=== PATIENT | female | born 1935 | race Caucasian/White ===

== ENCOUNTER 2019-11-10 10:31 | Outpatient (CLI) | payer MEDICARE, SELFPAY ==
[2019-11-10 17:18] LABS: Blood Urea Nitrogen 18 mg/dL (7-17); Calcium 9.9 mg/dL (8.4-10.2); Carbon Dioxide 27 mmol/L (22-30); Chloride 104 mmol/L (98-107); Estimated Glomerular Filt Rate 39; Glucose 123 mg/dL (65-105); Potassium 4.2 mmol/L (3.4-5.0); Sodium 140 mmol/L (137-145)
== END 2019-11-10 10:32 | disposition home or self-care (01) ==
PROVIDERS: PCP Family Medicine; Visit Provider Family Medicine
DX: N18.3 Chronic kidney disease, stage 3 (moderate) (principal)
CPT/HCPCS: 36415; 80048

== ENCOUNTER 2022-05-05 01:14 | Inpatient (IN) | payer MEDICARE, SELFPAY ==
[2022-05-05] VITALS (26 sets, daily range): BP systolic 102–161; BP diastolic 60–98; PULSE 81–100; RESP 14–26; TEMP 36.3–36.6; O2SAT 86–99; BMI 38.4
--- NOTE | 2022-05-05 | ECHO_ITS ---
Patient Info Name: Cecy Cantu Age: 86 years : 1935 Gender: Female Ht: 65 in Wt: 230 lbs BSA: 2.24 m2 HR: 85 bpm BP: 116 / 66 mmHg Heart Rhythm: Sinus Rhythm Technical Quality: Fair Exam Date: 05/05/2022 12:56 PM Exam Location: [facility] Pulmonary Patient Status: Inpatient Admit Date: 05/05/2022 Staff Ordering Physician: Marcellus Lindo MD Film Editor: Flaca Manzo RDCS Attending Provider: Marcellus Lindo MD Exam Type: CA echo doppler color flow Study Info Indications - shortness of breath Complete two-dimensional, color flow and Doppler transthoracic echocardiogram is performed. Summary 1. Complete two-dimensional, color flow and Doppler transthoracic echocardiogram is performed. 2. Left ventricular hypertrophy with good systolic function. 3. Septal flattening consistent with right ventricular pressure overload. 4. Markedly dilated right ventricle with RV hypokinesis. 5. Estimated pulmonary artery pressure 56 mmHg. 6. Mildly sclerotic aortic valve which is not significantly stenotic. Left Ventricular Outflow Tract Name Value Normal LVOT 2D LVOT Diameter 2.0 cm LVOT Doppler LVOT Peak Gradient 1 mmHg LVOT Mean Gradient 1 mmHg LVOT VTI 10 cm LVOT VTI/AV VTI Ratio 0.5 LVOT Stroke Volume 32 ml LVOT CO 2.4 l/min LVOT CI 1.1 l/min/m2 Pulmonic Valve Name Value Normal RVOT Doppler RVOT Peak Gradient 0 mmHg PV Doppler PV Peak Gradient 1 mmHg Tricuspid Valve Name Value Normal TV Regurgitation Doppler TR Peak Velocity 342 cm/s TR Peak Gradient 35 mmHg Estimated PAP/RSVP RA Pressure 10 mmHg <=5 PA Systolic Pressure 57 mmHg <36 RV Systolic Pressure 57 mmHg <36 Aorta Name Value Normal Ascending Aorta Ao Root Diameter (MM) 3.6 cm Ao Root Diam Index (MM) 1.6 cm/m2 Aortic Valve
--- NOTE | ~2022-05-05 | CT_ITS ---
EXAMINATION: CT chest abdomen pelvis wo con DATE: 05/05/2022 15:19 INDICATION: Shortness of breath. Epigastric abdominal pain. TECHNIQUE: Computed tomography (CT) of the chest, abdomen, and pelvis was performed without intraveno us contrast. Automated exposure control and iterative reconstruction technique were employed. The dos e-length product was 1660.10 mGy-cm. COMPARISON: None FINDINGS: CHEST CT: The lungs demonstrate mild atelectasis. There is smooth septal thickening in the lungs, consistent wi th mild pulmonary edema. In the right lower lobe, there is a 14 mm nodule. In the left upper lobe, th ere is a 18 mm part solid nodule centered at the bronchopulmonary interstitium. No pleural effusion. Calcified right hilar and mediastinal lymph nodes are consistent with old granulomatous disease. Card iomegaly is noted. There are coronary artery calcifications. No pericardial effusion. The central pul monary arteries are enlarged, consistent with pulmonary arterial hypertension. There is a small slidi ng hiatal hernia. There is severe thoracic spondylosis. There is an old healed fracture of the sternu m. ABDOMEN/PELVIS CT: Calcifications in the liver consistent with old granulomatous disease. The gallbladder is absent. The spleen, pancreas, and adrenal glands are normal. There are cysts in the kidneys measuring up to 2.7 cm on the left. The prostate is mildly enlarged. A Muñoz catheter decompresses the bladder. There are no dilated loops of bowel. The appendix is not visualized. There are no pathologically enlarged lymp h nodes. There is no free intraperitoneal fluid. There is a right hip arthroplasty. There is severe l umbar spondylosis. IMPRESSION: 1. 14 mm nodule in right lung lower lobe suspicious for primary bronchogenic carcinoma. Noncontrast l ow-dose chest CT is recommended in 3 months. 2. 18 mm part solid nodule in left lung upper lobe suspicious for primary bronchogenic carcinoma. Non contrast low-dose chest CT is recommended in 3 months. 3. Mild pulmonary edema. 4. Small sliding hiatal hernia. Reviewed, dictated and finalized at location A. IMPRESSION: 1. 14 mm nodule in right lung lower lobe suspicious for primary bronchogenic ca rcinoma. Noncontrast low-dose chest CT is recommended in 3 months. 2. 18 mm part solid nodule in left lung upper lobe suspicious for primary bronc hogenic carcinoma. Noncontrast low-dose chest CT is recommended in 3 months. 3. Mild pulmonary edema. 4. Small sliding hiatal hernia.
--- NOTE | ~2022-05-05 | NM_ITS ---
EXAMINATION: NM pulmonary perfusion DATE: 05/05/2022 15:47 INDICATION: Shortness of breath. TECHNIQUE: 4.68 mCi Tc-99m MAA was administered intravenously for perfusion images. Scintigraphic im ages of the chest were obtained. COMPARISON: Chest CT 05/05/2022 FINDINGS: Perfusion images show large defects in the upper lobes and left lower lobe and moderate sized defects in the right lower lobe and right middle lobe. IMPRESSION: 1. Pulmonary embolism present (high probability). I called this result to Dr. Lindo. Reviewed, dictated and finalized at location A.
--- NOTE | ~2022-05-05 | XR_ITS ---
EXAMINATION: XR chest 1V portable DATE: 05/05/2022 02:03 INDICATION: Shortness of breath TECHNIQUE: frontal view of the chest was obtained. COMPARISON: Chest radiograph dated 08/19/2017 FINDINGS: Subtle opacities in the left mid and lower lung zones. No pleural effusion or pneumothorax. Borderlin e heart size. Enlargement of the central pulmonary arteries. Calcified right hilar lymph nodes consis tent with old granulomatous disease. IMPRESSION: 1. Opacities in the left mid and lower lung zone which could represent asymmetric mild pulmonary kandice a or pneumonia. 2. Borderline heart size with enlargement of the central pulmonary arteries consistent with pulmonary arterial hypertension. Reviewed, dictated and finalized at location A. IMPRESSION: 1. Opacities in the left mid and lower lung zone which could represent asymmetr ic mild pulmonary edema or pneumonia. 2. Borderline heart size with enlargement of the central pulmonary arteries con sistent with pulmonary arterial hypertension.
--- NOTE | ~2022-05-05 | US_ITS ---
EXAMINATION:US venous doppler LE BI INDICATION:Pulmonary embolism. TECHNIQUE: Multiple grayscale, color flow and Doppler images of the right and left lower extremity de ep venous systems were obtained and reviewed. COMPARISON:Perfusion scan dated 05/05/2022 FINDINGS: The left common femoral, superficial femoral and popliteal veins demonstrate normal respira tory variation, augmentation and compressibility. Color flow is also seen within the posterior tibia l, peroneal, greater saphenous and profunda veins. There is deep venous thrombosis of the right posterior tibial and peroneal veins. The remainder of th e right lower extremity veins demonstrate normal flow and compressibility. IMPRESSION: 1: Deep venous thrombosis of the right posterior tibial and peroneal veins. Reviewed, dictated and finalized at location B.
--- NOTE | 2022-05-05 01:15 | ECG_ITS ---
Measurements Intervals [place] Rate: 101 P: 14 MO: 178 QRS: -11 QRSD: 158 T: -28 QT: 365 QTc: 475 Interpretive Statements SINUS TACHYCARDIA RIGHT BUNDLE BRANCH BLOCK [120+ ms QRS DURATION, UPRIGHT V1, 40+ ms S IN I/aVL/V4/V5/V6] MINIMAL VOLTAGE CRITERIA FOR LVH, CONSIDER NORMAL VARIANT [MEETS CRITERIA IN ONE OF: R(aVL), S(V1), R(V5), R(V5/V6)+S(V1)] SEPTAL MYOCARDIAL INFARCTION , OF INDETERMINATE AGE [40+ ms Q WAVE IN V1/V2] CANNOT RULE OUT INFERIOR INFARCTION ABNORMAL ECG Electronically Signed On 05-06-2022 8:44:21 CDT by Guerrero Arriaza M.D.
--- NOTE | 2022-05-05 01:27 | ED.CHESTPAIN ---
HPI - Chest Pain General Chief Complaint: Chest Pain Stated Complaint: CP & SOB Time Seen by Provider: 05/05/22 01:16 History of Present Illness HPI narrative: 86-year-old female brought in by EMS from home. EMS was called out because she been having shortness of breath for over the last week or so got progressively worse. Patient cannot lie flat at this point secondary to being extremely short of breath and sleeping in a recliner. She is also been having swelling to her legs. She has some nonspecific epigastric type discomfort today which she described as a burning pressure type sensation. She states she has had ulcers in the past but not sure that this was causing this. EMS had the patient walk a short distance to get to their stretcher and in doing so she decompensated and was extremely dyspneic and O2 sat was about 88 to 89% at that time. Patient was placed on supplemental oxygen and O2 saturations were up in the mid 90s. Patient was given Nitropaste prior to arrival. Related Data Home Medications Medication Instructions Recorded Confirmed omeprazole 20 mg capsule,delayed 20 mg PO DAILY 11/05/21 11/05/21 release polyethylene glycol ea miscellaneous 05/05/22 Allergies Allergy/AdvReac Type Severity Reaction Status Date / Time morphine Allergy Unknown Unknown Verified 05/05/22 01:44 Penicillins Allergy Unknown UNKNOWN Verified 05/05/22 01:44 Sulfa (Sulfonamide Allergy Unknown Unknown Verified 05/05/22 01:44 Antibiotics) Review of Systems Review of Systems: CONSTITUTIONAL: Denies fever, chills, or sweats. EYES: Denies visual changes, redness, or discharge. ENT: Denies rhinorrhea, congestion, sore throat, or otalgia. CARDIOVASCULAR: Denies palpitations, or edema. Nonspecific epigastric/chest discomfort RESPIRATORY: Dyspnea with orthopnea. Dyspnea with minimal exertion GASTROINTESTINAL: Denies abdominal pain, nausea, vomiting, or diarrhea. GENITOURINARY: Denies dysuria or hematuria. SKIN: Denies rash or itching. MUSCULOSKELETAL: Denies back pain, joint pain, or myalgia. NEUROLOGIC: Denies headache, numbness, or weakness. PSYCHIATRIC: Denies anxiety or depression. [facility] Past Medical History Medical History (Updated 05/05/22 @ 02:33 by Raheem Hickey DO) Hypertension Family History Family History Mother Hypertension Sibling Breast cancer Other Family history of malignant neoplasm Social History Social History Smoking status: Never smoker Second hand tobacco smoke exposure: No Alcohol intake: never Exam Narrative: APPEARANCE: Patient is very dyspneic even with talking. She is obese. Head Normocephalic and atraumatic. EYES: PERRLA/EOMI, conjunctivae clear. NOSE: Normal with no drainage EARS:TMS clear with Vázquez, with good light reflex. THROAT: Pharynx clear, no exudate. NECK: Supple. No adenopathy, no masses. RESPIRATORY: Airway patent, respirations nonlabored. Rales noted in the lower half of both lung sharma CARDIOVASCULAR: Regular rate and rhythm without murmurs, rubs, or gallops. ABDOMINAL: Soft, nontender, nondistended, no hepatosplenomegaly Musculoskeletal: Moves all extremities. Strength/ROM intact, No calf tenderness. 2+ pitting edema both lower extremity NEURO: Alert. Cranial nerves II through XII intact. Normal gait. Good coordination. Nonfocal examination. SKIN:: Warm, dry. Normal Color PSYCHIATRIC: Normal affect/mood, normal interaction Course Vital Signs Vital signs: Vital Signs Temperature 97.8 F 05/05/22 01:10 Pulse Rate 95 05/05/22 01:10 Respiratory Rate 26 H 05/05/22 01:10 Blood Pressure 157/98 H 05/05/22 01:10 Pulse Oximetry 86 L 05/05/22 01:10 Oxygen Delivery Room Air 05/05/22 01:10 Temperature 97.8 F 05/05/22 01:10 Pulse Rate 91 05/05/22 02:15 Respiratory Rate 17 05/05/22 02:15 Blood Pressure 132/89 05/05/22 02:1
[2022-05-05 01:50] LABS: Basophils Percent Auto 0.5 % (0.2-1.2); Eosinophils Absolute Auto 0.1 K/mm3 (0-0.3); Eosinophils Percent Auto 1.6 % (0-4.4); Hematocrit 37.6 % (37.0-47.0); Hemoglobin 12.4 g/dL (12.0-15.0); Immature Granulocyte Absolute 0.03 K/mm3 (0.00-0.031); Immature Granulocyte Percent A 0.3 % (0-0.5); Lymphocytes Absolute Auto 2.85 K/mm3 (0.9-3.2); Lymphocytes Percent Auto 32.9 % (18.3-44.2); Mean Corpuscular Hemoglobin 30.5 pg (26-34); Mean Corpuscular Volume 92.6 fl (80-100); Mean Platelet Volume 9.9 fl (7.4-10.4); Monocytes Absolute Auto 0.7 K/mm3 (0.1-0.6); Monocytes Percent Auto 7.7 % (2.6-8.5); Neutrophils Absolute Auto 4.9 K/mm3 (1.3-6.7); Platelet Count Result 171 k/mm3 (150-375); Red Blood Count 4.06 M/mm3 (4.2-5.4); Red Cell Distribution Width 12.8 % (11.5-14.5); White Blood Count 8.7 K/mm3 (4.5-10.0)
[2022-05-05 02:02] LABS: Alanine Aminotransferase 13 U/L (6-35); Albumin Level 4.2 g/dL (3.5-5.1); Alkaline Phosphatase 74 U/L (38-126); Anion Gap 8 mmol/L (8-16); Aspartate Amino Transferase 25 U/L (14-36); Bilirubin,Total 0.8 mg/dL (0.2-1.3); Blood Urea Nitrogen 15 mg/dL (7-17); Calcium 10.8 mg/dL (8.4-10.2); Carbon Dioxide 27 mmol/L (22-30); Chloride 95 mmol/L (98-107); Estimated CRCL calculation 28 ml/min; Estimated Glomerular Filt Rate 31; Glucose 168 mg/dL (65-110); Potassium 3.6 mmol/L (3.4-5.0); Sodium 130 mmol/L (137-145)
[2022-05-05 02:16] LABS: NT Pro B Type Natriuretic Pept 5690 pg/mL (5-100); Troponin I 0.247 ng/mL (0.000-0.034)
--- NOTE | 2022-05-05 02:31 | PM.IMHP ---
H&P: HPI History of Present Illness Date/Time: 05/05/22 02:31 Chief Complaint: chest pain PMFSH Past Medical History Medical History (Updated 05/05/22 @ 02:33 by Raheem Hickey DO) Hypertension Family History Family History Mother Hypertension Sibling Breast cancer Other Family history of malignant neoplasm Social History Social History Smoking status: Never smoker Second hand tobacco smoke exposure: No Alcohol intake: former Substance use: former Spiritual care concerns: No Meds Home Medications and Allergies Home Medications Medication Instructions Recorded Confirmed Type hydrochlorothiazide 25 mg tablet 25 mg PO DAILY #90 tabs 05/01/21 05/05/22 Rx lisinopril 20 mg tablet 20 mg PO DAILY #90 tabs 05/01/21 05/05/22 Rx simvastatin 20 mg tablet 20 mg PO DAILY #90 tabs 05/01/21 05/05/22 Rx calcitriol 0.5 mcg capsule 0.5 mcg PO DAILY #90 caps 11/05/21 05/05/22 Rx omeprazole 20 mg capsule,delayed 20 mg PO DAILY 11/05/21 05/05/22 History release ergocalciferol (vitamin D2) 1,250 1,250 mcg PO WEEKLY 05/05/22 05/05/22 History mcg (50,000 unit) capsule Allergies Allergy/AdvReac Type Severity Reaction Status Date / Time morphine Allergy Unknown Unknown Verified 05/05/22 01:44 Penicillins Allergy Unknown UNKNOWN Verified 05/05/22 01:44 Sulfa (Sulfonamide Allergy Unknown Unknown Verified 05/05/22 01:44 Antibiotics) Vital Signs Vital Signs - 24 hr 05/05/22 01:10 05/05/22 01:26 05/05/22 01:30 Temperature 97.8 F Pulse Rate 95 Respiratory Rate 26 H Blood Pressure 157/98 H Pulse Oximetry 86 L 93 93 Oxygen Delivery Room Air Nasal Cannula Nasal Cannula Oxygen Flow Rate 2 2 05/05/22 01:28 05/05/22 01:21 05/05/22 01:30 Temperature Pulse Rate 87 95 90 Respiratory Rate 17 17 Blood Pressure Pulse Oximetry 94 93 Oxygen Delivery Oxygen Flow Rate 05/05/22 01:45 05/05/22 02:04 05/05/22 02:15 Temperature Pulse Rate 92 92 91 Respiratory Rate 20 19 17 Blood Pressure 132/89 Pulse Oximetry 95 95 94 Oxygen Delivery Oxygen Flow Rate H&P: Results Labs Labs: Short CBC 05/05/22 Range/Units 01:45 WBC 8.7 (4.5-10.0) K/mm3 Hgb 12.4 (12.0-15.0) g/dL Hct 37.6 (37.0-47.0) % Plt Count 171 (150-375) k/mm3 BMP 05/05/22 01:45 Sodium 130 L Potassium 3.6 Chloride 95 L Carbon Dioxide 27 BUN 15 Creatinine 1.60 H Glucose 168 H Calcium 10.8 H Cardiac Enzymes 05/05/22 Range/Units 01:45 Troponin I 0.247 H* (0.000-0.034) ng/mL Liver Function 05/05/22 Range/Units 01:45 Total Bilirubin 0.8 (0.2-1.3) mg/dL AST 25 (14-36) U/L ALT 13 (6-35) U/L Alkaline Phosphatase 74 (38-126) U/L Albumin 4.2 (3.5-5.1) g/dL Assessment and Plan Assessment and plan (1) Congestive heart failure: Code(s): I50.9 - Heart failure, unspecified Status: Acute Assessment and Plan: admit to IMU gentle diuresis daily intake and output echocardiogram in a.m. (2) Non-ST elevated myocardial infarction (non-STEMI): Code(s): I21.4 - Non-ST elevation (NSTEMI) myocardial infarction Status: Acute Assessment and Plan: patient with elevated troponins currently on heparin drip cardiology consult (3) Hypoxia: Code(s): R09.02 - Hypoxemia Status: Acute Assessment and Plan: supplemental oxygen by nasal cannula continue to monitor (4) Chronic renal failure, stage 3 (moderate): Onset Date: ~08/2016 Code(s): N18.3 - Chronic kidney disease, stage 3 (moderate) Status: Acute Assessment and Plan: continue to monitor BUN and creatinine daily intake and output
[2022-05-05] MEDS: FUROSEMIDE INJ 40 MG/4 ML VIAL IV PUSH (02:37)
[2022-05-05 02:41] LABS: INR 1.1; Prothrombin Time 13.5 Seconds (11.1-14.7)
[2022-05-05 02:43] LABS: Partial Thromboplastin Time 30.1 SECONDS (22.3-36.8)
[2022-05-05] MEDS: HEPARIN SODIUM 5,000 UNITS/ML VIAL 4000 UNITS IV PUSH ×2 (02:44→08:59)
[2022-05-05] MEDS: HEPARIN SOD/D5W 100 UNITS/ML 25,000 UNITS/250 ML BAG 9 UNITS IV CONT (02:45)
[2022-05-05 03:21] LABS: SARS-CoV-2 RNA PCR Negative
--- NOTE | 2022-05-05 04:10 | ADMGEN ---
This patient, Cecy Cantu, was admitted to IMU Room 206-02. Patient/family oriented to hospital policies and general routines including ID bracelet, bed and alarms, visiting hours, pain management, procedures, bathroom and other care routines, personal items, smoking policy, room service/diet, and visiting hours. Information on how to activate the Rapid Response Team has been discussed. Patient/Family are encouraged to report perceived risks to care and to ask questions if they do not understand what they are told or what they should do.
[2022-05-05 08:13] LABS: Troponin I 0.242 ng/mL (0.000-0.034)
[2022-05-05] MEDS: hydroCHLOROthiazide 25 MG TABLET PO (08:44)
[2022-05-05] MEDS: PANTOPRAZOLE 40 MG TABLET PO (08:44)
[2022-05-05] MEDS: lisinopriL 20 MG TABLET PO (08:44)
[2022-05-05] MEDS: calcitrioL 0.25 MCG CAPSULE 0.5 MCG PO (08:44)
[2022-05-05] MEDS: SIMVASTATIN 20 MG TABLET PO (08:45)
[2022-05-05 08:52] LABS: Partial Thromboplastin Time 27.3 SECONDS (22.3-36.8)
--- NOTE | 2022-05-05 11:21 | PM.IMPN ---
Progress Note: A&P Assessment and Plan (1) Congestive heart failure: Code(s): I50.9 - Heart failure, unspecified Status: Acute (2) Non-ST elevated myocardial infarction (non-STEMI): Code(s): I21.4 - Non-ST elevation (NSTEMI) myocardial infarction Status: Acute (3) Hypoxia: Code(s): R09.02 - Hypoxemia Status: Acute (4) Chronic renal failure, stage 3 (moderate): Onset Date: ~08/2016 Code(s): N18.3 - Chronic kidney disease, stage 3 (moderate) Status: Acute Plan # shortness of breath COVID negative unclear etiology. Reviewed with IV diuresis for suspected congestive heart failure. Will get a V/Q scan due to renal dysfunction to rule out PE. Her main chief complaint is epigastric pain. Will get CT evaluate this. Chest x-ray shows subtle opacities in the left mid and lower lung zone with no effusion or pneumothorax. Enlargement of the central pulmonary arteries consistent with pulmonary arterial hypertension with borderline heart size echo to evaluate these however these sounds to be a chronic he might not be the etiology for her shortness of breath which sshe relates to stay be started few weeks back. Will cover with antibiotics for possible pneumonia at this time. AgoWBC count is normal and reports no history off fever chills has minimal cough. # acute hypoxic respiratory failure hypoxic upon exertion. Currently on 2 L oxygen. # acute congestive heart failure echo ordered, cardiology consult BNP is elevated at 5690. IV Lasix once daily for now # non ST-elevation ME troponin of 0.247 for except flat at 0.242. Could be related to CHF. On heparin drip for non ST-elevation ME. BNP elevated at 5 690 # hypertension home medications # hyperlipidemia home medication # hyponatremia mild continue to monitor # CKD stage 3 baseline creatinine 1.3-1.5 currently at 1.6 continue to monitor with diuresis # prediabetes A1c of 6.1 # DVT prophylaxis on heparin drip #code status full code Subjective Date/time seen: 05/05/22 11:21 Interval history: HPI:86-year-old female brought in by EMS from home.? EMS was called out because she been having shortness of breath for over the last week or so got progressively worse.? Patient cannot lie flat at this point secondary to being extremely short of breath and sleeping in a recliner.? She is also been having swelling to her legs.? She has some nonspecific epigastric type discomfort today which she described as a burning pressure type sensation.? She states she has had ulcers in the past but not sure that this was causing this.? EMS had the patient walk a short distance to get to their stretcher and in doing so she decompensated and was extremely dyspneic and O2 sat was about 88 to 89% at that time.? Patient was placed on supplemental oxygen and O2 saturations were up in the mid 90s.? Patient was given Nitropaste prior to arrival 05/05/2022 reports epigastric pain. Feels about the same. Denies any nausea vomiting. Has shortness of breath since last few weeks. Reports hurts when she takes deep breath. Review of Systems Review of Systems: All systems reviewed & are unremarkable except as noted in HPI and below Exam Narrative: GENERAL: The patient is well developed, ill looking, not in acute distress HEENT: Nonicteric sclerae, PERRLA, EOMI. Oropharynx clear. Moist mucous membranes. Conjunctivae appear well perfused. CHEST: Chest wall is nontender. HEART: Regular rate and rhythm without murmur, rubs, or gallops LUNGS: Diminished breath sounds to auscultation bilaterally. no respiratory distress ABDOMEN: Soft, positive bowel sounds, tender epigastric area, no organomegaly. SKIN: No rash, no excessive bruising, petechiae, or purpura. NEUROLOGIC: Cranial nerves II-XII intact, alert and oriented x 3, no gross motor deficits EXTREMITIES: no edema, cyanosis or clubbing Objective Data Vital Signs Vital Signs: Vital Signs - 24 hr 05/05/22
[2022-05-05 12:48] LABS: Lipase 155 U/L (23-300)
--- NOTE | 2022-05-05 15:00 | PC.NURSE ---
Patient off floor to CT and nuclear medicine for testing. All vitals stable. Patient okay to travel without RN per Dr. Lindo.
[2022-05-05 16:48] LABS: Basophils Absolute Auto 0.1 K/mm3 (0.0-0.1); Basophils Percent Auto 0.7 % (0.2-1.2); Eosinophils Absolute Auto 0.3 K/mm3 (0-0.3); Eosinophils Percent Auto 2.7 % (0-4.4); Hematocrit 37.5 % (37.0-47.0); Hemoglobin 12.3 g/dL (12.0-15.0); Immature Granulocyte Absolute 0.04 K/mm3 (0.00-0.031); Immature Granulocyte Percent A 0.4 % (0-0.5); Lymphocytes Absolute Auto 4.19 K/mm3 (0.9-3.2); Lymphocytes Percent Auto 38.3 % (18.3-44.2); Mean Corpuscular HGB Conc 32.8 g/dl (32-36); Mean Corpuscular Hemoglobin 30.5 pg (26-34); Mean Corpuscular Volume 93.1 fl (80-100); Mean Platelet Volume 10.1 fl (7.4-10.4); Monocytes Absolute Auto 0.9 K/mm3 (0.1-0.6); Monocytes Percent Auto 8.5 % (2.6-8.5); Neutrophils Absolute Auto 5.4 K/mm3 (1.3-6.7); Neutrophils Percent Auto 49.4 % (45.5-73.1); Platelet Count Result 176 k/mm3 (150-375); Red Blood Count 4.03 M/mm3 (4.2-5.4); White Blood Count 10.9 K/mm3 (4.5-10.0)
[2022-05-05 17:54] LABS: Partial Thromboplastin Time > 200.0 SECONDS (22.3-36.8)
[2022-05-05 18:01] LABS: INR 1.2; Prothrombin Time 14.4 Seconds (11.1-14.7)
[2022-05-05] MEDS: MELATONIN 5 MG TABLET PO (20:36)
[2022-05-05] MEDS: HEPARIN SOD/D5W 100 UNITS/ML 25,000 UNITS/250 ML BAG 12 UNITS IV CONT (20:36)
[2022-05-05] MEDS: oxyCODONE/ACETAMINOPHEN (*CRX) 5-325 MG TABLET 1 TABLET PO (20:36)
[2022-05-06] VITALS (15 sets, daily range): BP systolic 105–124; BP diastolic 56–94; PULSE 71–94; RESP 16–22; TEMP 36.3–36.7; O2SAT 92–98
[2022-05-06] MEDS: HEPARIN SOD/D5W 100 UNITS/ML 25,000 UNITS/250 ML BAG 12 UNITS IV CONT (01:08)
[2022-05-06 01:14] LABS: Partial Thromboplastin Time > 200.0 SECONDS (22.3-36.8)
[2022-05-06] MEDS: HEPARIN SOD/D5W 100 UNITS/ML 25,000 UNITS/250 ML BAG 10 UNITS IV CONT (02:16)
[2022-05-06 07:02] LABS: Basophils Absolute Auto 0.1 K/mm3 (0.0-0.1); Basophils Percent Auto 0.9 % (0.2-1.2); Eosinophils Absolute Auto 0.3 K/mm3 (0-0.3); Eosinophils Percent Auto 3.3 % (0-4.4); Hematocrit 34.7 % (37.0-47.0); Hemoglobin 11.3 g/dL (12.0-15.0); Immature Granulocyte Absolute 0.04 K/mm3 (0.00-0.031); Immature Granulocyte Percent A 0.4 % (0-0.5); Lymphocytes Absolute Auto 4.35 K/mm3 (0.9-3.2); Lymphocytes Percent Auto 43.1 % (18.3-44.2); Mean Corpuscular HGB Conc 32.6 g/dl (32-36); Mean Corpuscular Hemoglobin 30.9 pg (26-34); Mean Corpuscular Volume 94.8 fl (80-100); Mean Platelet Volume 10.2 fl (7.4-10.4); Monocytes Percent Auto 9.9 % (2.6-8.5); Neutrophils Absolute Auto 4.3 K/mm3 (1.3-6.7); Neutrophils Percent Auto 42.4 % (45.5-73.1); Platelet Count Result 171 k/mm3 (150-375); Red Blood Count 3.66 M/mm3 (4.2-5.4); White Blood Count 10.1 K/mm3 (4.5-10.0)
--- NOTE | 2022-05-06 07:20 | PM.CNPUL ---
Assessment and Plan Assessment and plan (1) Pulmonary embolism: Code(s): I26.99 - Other pulmonary embolism without acute cor pulmonale Status: Acute Assessment and Plan: Patient with 7 days of worsening shortness of breath, hemodynamics stability, hypoxemia, high probability perfusion scan, BNP of 5690, troponin is 0.247 and an echocardiogram that shows LV septal flattening, dilated RV with RV hypokinesis and an estimated pulmonary arterial systolic pressure 56. patient has been treated with IV heparin drip for 30 hours and states that clinically she is better and now breathing normal at rest, pleuritic chest pain has resolved and substernal chest pain has resolved. She remains hemodynamically stable and on 2 L nasal cannula. Her renal insufficiency prevents a CT angiogram at this time. LE dopplers pending. Worsening creatinine and Lasix has been held. At this time I will consider this an unprovoked PE. Of note the patient has been relatively immobile only walking to the bathroom for the last 2 weeks and she also has to pulmonary nodules which may be cancer. Risk assessment of early . Patient remains hemodynamically stable and has RV dysfunction and elevated BNP and troponin placing her at intermediate-high risk and she has a full PESI score of 30 (class 1, low risk) and a sPESI score of 2 (high risk). Using Chest guidelines (from 2020) statements 8 and 9, I agree with IV heparin anticoagulation while monitoring for any deterioration. Discussed with Dr. Lindo. Will follow with you. (2) Lung nodule, multiple: Code(s): R91.8 - Other nonspecific abnormal finding of lung field Status: Acute Plan Patient is a never smoker With minimal exposure to secondhand smoke. Patient was found to have a 14 mm right lower lobe nodule and an 18 mm left upper lobe partly solid nodule. Recommend repeat CT scan in 3 months. History of Present Illness History of Present Illness Consult date: 05/06/22 Chief complaint: SOB Narrative: 2021: This is a new pulmonary consult for pulmonary embolism and lung nodules. 86-year-old with a history of diabetes, hypertension, CKD, bilateral lower extremity DVTs in the late , hematemesis from a bleeding ulcer in the mid . History obtained from patient and patient's daughter. Regarding her DVTs in the late she remembers making a bank deposit and she almost fell. She was admitted to the hospital for approximately 5-7 days with bilateral leg swelling and she remembers that they wrapped her legs but does not remember if they gave her any medicines. She was told she had blood clots in both legs. She has had no history of clots since then. she has no Spe[place] family history of blood clots. She has no history of strokes. Regarding her bleeding ulcer in the mid patient remembers vomiting coffee-grounds and was admitted to the hospital for 19 days. She does not remember having any procedures performed and did remember being placed on a strict diet. She has had no history of bleeding since then. Patient is a never smoker. She was exposed to secondhand smoke from her father and from her from [id number]. 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 She denies vaping, illicit drug use, sandblasting, welding, asbestos were, professional painting or steel cut off [employer]. 1 year ago the patient said that she noticed leg fatigue and stopped going to [employer] at that time. She stated at that time she could walk 1/2 a block and would stop because her legs were tired. She could do 13 steps and would stop because her legs were tired. Six months ago the patient states that she could only do 6 steps and then her legs were tired. 1-2 months ago the patient noticed shortness of breath with activity and no rest shortness of breath around. Patient would get winded walking around the house. She denied any chest pain at that time. Fourteen days prior to admission the patient d
[2022-05-06 07:22] LABS: Alanine Aminotransferase 12 U/L (6-35); Albumin Level 3.6 g/dL (3.5-5.1); Alkaline Phosphatase 70 U/L (38-126); Anion Gap 10 mmol/L (8-16); Aspartate Amino Transferase 22 U/L (14-36); Bilirubin,Total 0.6 mg/dL (0.2-1.3); Blood Urea Nitrogen 21 mg/dL (7-17); Carbon Dioxide 27 mmol/L (22-30); Chloride 92 mmol/L (98-107); Estimated CRCL calculation 21 ml/min; Estimated Glomerular Filt Rate 22; Glucose 131 mg/dL (65-110); Magnesium 1.2 mg/dL (1.6-2.3); Potassium 3.4 mmol/L (3.4-5.0); Sodium 129 mmol/L (137-145)
[2022-05-06 08:25] LABS: Partial Thromboplastin Time 114.7 SECONDS (22.3-36.8)
[2022-05-06] MEDS: calcitrioL 0.25 MCG CAPSULE 0.5 MCG PO (09:47)
[2022-05-06] MEDS: SIMVASTATIN 20 MG TABLET PO (09:47)
[2022-05-06] MEDS: PANTOPRAZOLE 40 MG TABLET PO (09:47)
--- NOTE | 2022-05-06 09:57 | PCOTNOTE ---
Per MD Dr. Lindo, patient is cleared to perform OT evaluation at this time.
[2022-05-06] MEDS: MAGNESIUM SULF 2 GM/WATER 50ML 2 GM/50 ML BAG IVPB (10:00)
--- NOTE | 2022-05-06 12:05 | PCPTNOTE ---
Attempted PT evaluation this date however pt declined due to being fatigued. Will attempt at a later date/time.
[2022-05-06] MEDS: DOCUSATE SODIUM 100 MG CAPSULE PO (15:46)
--- NOTE | 2022-05-06 16:17 | PM.IMPN ---
Progress Note: A&P Assessment and Plan (1) Congestive heart failure: Code(s): I50.9 - Heart failure, unspecified Status: Acute (2) Non-ST elevated myocardial infarction (non-STEMI): Code(s): I21.4 - Non-ST elevation (NSTEMI) myocardial infarction Status: Acute (3) Hypoxia: Code(s): R09.02 - Hypoxemia Status: Acute (4) Chronic renal failure, stage 3 (moderate): Onset Date: ~08/2016 Code(s): N18.3 - Chronic kidney disease, stage 3 (moderate) Status: Acute Plan # shortness of breath COVID negative unclear etiology. started with IV diuresis for suspected congestive heart failure. PK scan obtained which showed high probability for PE. CT chest reveal right lower lobe and left lower lobe nodule suspicious for bronchogenic carcinoma. Chest x-ray shows subtle opacities in the left mid and lower lung zone with no effusion or pneumothorax. Enlargement of the central pulmonary arteries consistent with pulmonary arterial hypertension with borderline heart size . Echo with RV dysfunction Consistent with PE. Started on heparin PE protocol. Sees on ceftriaxone and azithromycin possible pneumonia which will be continued. WBC count is normal and reports no history off fever chills has minimal cough. Venous duplex lower extremity came back positive for DVT as well She will need anticoagulation discussed with care coordination for Xarelto versus Eliquis. She has high deductible which to be met after month. She will be given a month supply for Eliquis/Xarelto . PE is unprovoked however does have decreased mobility since a while now. Underlying malignancy needs to be ruled out as well. Discussed biopsy of the lung nodules however short-term follow-up in [address] chest history for due to acute PE And need for anticoagulation at this time. # acute hypoxic respiratory failure hypoxic upon exertion. Currently on 2 L oxygen. stable oxygen needs # acute congestive heart failure echo ordered, cardiology consult BNP is elevated at 5690. IV Lasix given however will hold due to worsening renal failure # non ST-elevation NM troponin of 0.247 for except flat at 0.242. Could be related to CHF. On heparin drip for non ST-elevation NM. BNP elevated at 5 690 this is likely related to underlying PE # hypertension home medications # hyperlipidemia home medication # hyponatremia mild continue to monitor # acute on CKD stage 3 baseline creatinine 1.3-1.5 currently at 1.6 creatinine worsened to 2 today. Will hold lisinopril hydrochlorothiazide and IV diuresis # prediabetes A1c of 6.1 # DVT prophylaxis on heparin drip #code status full code discussed with pulmonary Subjective Date/time seen: 05/06/22 16:17 Interval history: HPI:86-year-old female brought in by EMS from home.? EMS was called out because she been having shortness of breath for over the last week or so got progressively worse.? Patient cannot lie flat at this point secondary to being extremely short of breath and sleeping in a recliner.? She is also been having swelling to her legs.? She has some nonspecific epigastric type discomfort today which she described as a burning pressure type sensation.? She states she has had ulcers in the past but not sure that this was causing this.? EMS had the patient walk a short distance to get to their stretcher and in doing so she decompensated and was extremely dyspneic and O2 sat was about 88 to 89% at that time.? Patient was placed on supplemental oxygen and O2 saturations were up in the mid 90s.? Patient was given Nitropaste prior to arrival 05/05/2022 reports epigastric pain. Feels about the same. Denies any nausea vomiting. Has shortness of breath since last few weeks. Reports hurts when she takes deep breath. 05/06/2022 feeling a little better. Been on heparin drip. Shortness of breath on exertion. Epigastric pain is improved. No other complaints discussed with pulmona
[2022-05-06 16:26] LABS: Partial Thromboplastin Time 63.2 SECONDS (22.3-36.8)
[2022-05-06] MEDS: HEPARIN SODIUM 5,000 UNITS/ML VIAL 3000 UNITS IV PUSH (16:35)
[2022-05-06 17:53] LABS: Anion Gap 9 mmol/L (8-16); Blood Urea Nitrogen 22 mg/dL (7-17); Calcium 9.8 mg/dL (8.4-10.2); Carbon Dioxide 27 mmol/L (22-30); Chloride 92 mmol/L (98-107); Estimated CRCL calculation 20 ml/min; Estimated Glomerular Filt Rate 20; Glucose 136 mg/dL (65-110); Potassium 3.3 mmol/L (3.4-5.0); Sodium 128 mmol/L (137-145)
[2022-05-06] MEDS: POTASSIUM CHLORIDE 20 MEQ TABLET PO (18:35)
[2022-05-06] MEDS: SODIUM CHLORIDE 0.9% IV 500 ML 100 ML IV CONT (18:35)
[2022-05-07] VITALS (16 sets, daily range): BP systolic 102–157; BP diastolic 46–77; PULSE 69–92; RESP 16–22; TEMP 36.2–36.6; O2SAT 90–97
[2022-05-07 00:04] LABS: Partial Thromboplastin Time 131.2 SECONDS (22.3-36.8)
[2022-05-07] MEDS: HEPARIN SOD/D5W 100 UNITS/ML 25,000 UNITS/250 ML BAG 8 UNITS IV CONT (06:11)
[2022-05-07 07:16] LABS: Basophils Absolute Auto 0.1 K/mm3 (0.0-0.1); Basophils Percent Auto 0.7 % (0.2-1.2); Eosinophils Absolute Auto 0.3 K/mm3 (0-0.3); Eosinophils Percent Auto 3.8 % (0-4.4); Hematocrit 33.4 % (37.0-47.0); Hemoglobin 11.2 g/dL (12.0-15.0); Immature Granulocyte Absolute 0.03 K/mm3 (0.00-0.031); Immature Granulocyte Percent A 0.4 % (0-0.5); Lymphocytes Absolute Auto 2.95 K/mm3 (0.9-3.2); Lymphocytes Percent Auto 35.1 % (18.3-44.2); Mean Corpuscular HGB Conc 33.5 g/dl (32-36); Mean Corpuscular Volume 92.5 fl (80-100); Mean Platelet Volume 10.2 fl (7.4-10.4); Monocytes Absolute Auto 0.8 K/mm3 (0.1-0.6); Monocytes Percent Auto 9.5 % (2.6-8.5); Neutrophils Absolute Auto 4.2 K/mm3 (1.3-6.7); Neutrophils Percent Auto 50.5 % (45.5-73.1); Platelet Count Result 162 k/mm3 (150-375); Red Blood Count 3.61 M/mm3 (4.2-5.4); Red Cell Distribution Width 12.8 % (11.5-14.5); White Blood Count 8.4 K/mm3 (4.5-10.0)
[2022-05-07 07:36] LABS: Partial Thromboplastin Time 71.3 SECONDS (22.3-36.8)
[2022-05-07 07:38] LABS: Alanine Aminotransferase 11 U/L (6-35); Albumin Level 3.4 g/dL (3.5-5.1); Alkaline Phosphatase 71 U/L (38-126); Anion Gap 9 mmol/L (8-16); Aspartate Amino Transferase 19 U/L (14-36); Bilirubin,Total 0.6 mg/dL (0.2-1.3); Blood Urea Nitrogen 19 mg/dL (7-17); Calcium 9.8 mg/dL (8.4-10.2); Carbon Dioxide 27 mmol/L (22-30); Chloride 94 mmol/L (98-107); Estimated CRCL calculation 22 ml/min; Estimated Glomerular Filt Rate 24; Glucose 134 mg/dL (65-110); Magnesium 1.7 mg/dL (1.6-2.3); Potassium 3.6 mmol/L (3.4-5.0); Sodium 130 mmol/L (137-145)
[2022-05-07 07:54] LABS: NT Pro B Type Natriuretic Pept 3260 pg/mL (5-100)
--- NOTE | 2022-05-07 08:13 | PM.IMPN ---
Progress Note: A&P Assessment and Plan (1) Pulmonary embolism: Code(s): I26.99 - Other pulmonary embolism without acute cor pulmonale Status: Acute Assessment and Plan: Heparin drip, being transitioned to eliquis (2) Congestive heart failure: Code(s): I50.9 - Heart failure, unspecified Status: Acute Assessment and Plan: Right heart strain noted on echo 2/2 PE, euvolemia at this time (3) Hypoxia: Code(s): R09.02 - Hypoxemia Status: Acute Assessment and Plan: Improving, now on 2L, appreciate pulm consult, 2/2 PE, home O2 eval pending, anticipate d/c on oxygen and eliquis tomorrow (4) Chronic renal failure, stage 3 (moderate): Onset Date: ~08/2016 Code(s): N18.3 - Chronic kidney disease, stage 3 (moderate) Status: Acute Assessment and Plan: Stable, continue to monitor (5) Lung nodule, multiple: Code(s): R91.8 - Other nonspecific abnormal finding of lung field Status: Acute Assessment and Plan: Nodule suspicious for bronchogenic carcinoma as well as unprovoked PE, concerning for underlying malignancy, recommend repeat CT chest in 3 months as opposed to lung biopsy due to acute PE and need for anticoagulation D/c heparin drip, start eliquis (6) Hyponatremia: Code(s): E87.1 - Hypo-osmolality and hyponatremia Status: Acute Assessment and Plan: Improving, likely secondary to hypervolemia Plan DVT prophylaxis on heparin drip, transitioning to eliquis Code status full code Subjective Date/time seen: 05/07/22 08:13 Interval history: 05/07: Resting comfortably on 2 L nasal cannula. No overnight events noted. No chest pain or shortness of breath. No nausea, vomiting or diarrhea. No fevers or chills. Review of Systems Review of Systems: 12 point review of systems was assessed and was negative except as noted in the HPI Exam Narrative: General: No acute distress, alert and oriented per baseline HEENT: Atraumatic, normocephalic, mucous membranes moist CV: Regular rate and rhythm, S1, S2 Lungs: Clear to auscultation bilaterally, no rales or crackles noted, no wheezes, good air entry Abdomen: Soft, nontender, nondistended Extremities: Normal to inspection Skin: No rashes noted, no lesions or wounds seen Psych: Euthymic, normal affect Objective Data Vital Signs Vital Signs: Vital Signs - 24 hr 05/06/22 09:58 05/06/22 09:45 05/06/22 10:00 Temperature Pulse Rate 76 94 Respiratory Rate 16 Blood Pressure Pulse Oximetry 96 Oxygen Delivery Nasal Cannula Nasal Cannula Oxygen Flow Rate 2 2 05/06/22 12:00 05/06/22 12:00 05/06/22 12:00 Temperature 98.1 F Pulse Rate 94 82 76 Respiratory Rate 16 18 Blood Pressure 105/78 Pulse Oximetry 96 92 Oxygen Delivery Nasal Cannula Oxygen Flow Rate 2 05/06/22 14:00 05/06/22 16:00 05/06/22 16:00 Temperature Pulse Rate 87 87 74 Respiratory Rate 18 Blood Pressure Pulse Oximetry 92 Oxygen Delivery Nasal Cannula Oxygen Flow Rate 4 05/06/22 16:00 05/06/22 18:00 05/06/22 20:00 Temperature 97.5 F L 97.7 F Pulse Rate 79 81 83 Respiratory Rate 22 H 20 Blood Pressure 123/56 L 124/94 H Pulse Oximetry 98 95 Oxygen Delivery Oxygen Flow Rate 05/06/22 20:00 05/06/22 20:00 05/06/22 22:00 Temperature Pulse Rate 71 74 Respiratory Rate Blood Pressure Pulse Oximetry 94 Oxygen Delivery Nasal Cannula Oxygen Flow Rate 4 05/06/22 23:45 05/07/22 00:00 05/07/22 00:00 Temperature 98.0 F Pulse Rate 77 72 Respiratory Rate 18 Blood Pressure 121/63 Pulse Oximetry 98 97 Oxygen Delivery Nasal Cannula Oxygen Flow Rate 4 05/07/22 02:00 05/07/22 04:00 05/07/22 04:00 Temperature Pulse Rate 70 69 Respiratory Rate Blood Pressure Pulse Oximetry 93 Oxygen Delivery Nasal Cannula Oxygen Flow Rate 2 05/07/22 04:00 05/07/22 06:00 Temperature 97.9
--- NOTE | 2022-05-07 08:30 | PM.PNPUL ---
Progress Note: A&P Assessment and Plan (1) Pulmonary embolism: Code(s): I26.99 - Other pulmonary embolism without acute cor pulmonale Status: Acute Assessment and Plan: 05/06 Patient with 7 days of worsening shortness of breath, hemodynamics stability, hypoxemia, high probability perfusion scan, BNP of 5690, troponin is 0.247 and an echocardiogram that shows LV septal flattening, dilated RV with RV hypokinesis and an estimated pulmonary arterial systolic pressure 56. patient has been treated with IV heparin drip for 30 hours and states that clinically she is better and now breathing normal at rest, pleuritic chest pain has resolved and substernal chest pain has resolved. She remains hemodynamically stable and on 2 L nasal cannula. Her renal insufficiency prevents a CT angiogram at this time. LE dopplers pending. Worsening creatinine and Lasix has been held. At this time I will consider this an unprovoked PE. Of note the patient has been relatively immobile only walking to the bathroom for the last 2 weeks and she also has to pulmonary nodules which may be cancer. Risk assessment of early . Patient remains hemodynamically stable and has RV dysfunction and elevated BNP and troponin placing her at intermediate-high risk and she has a full PESI score of 30 (class 1, low risk) and a sPESI score of 2 (high risk). Using Chest guidelines (from 2020) statements 8 and 9, I agree with IV heparin anticoagulation while monitoring for any deterioration. Later in the day lower extremity Dopplers revealed a right posterior tibial and peroneal vein DVT. 05/07 Patient denies fever chills cough or hemoptysis. Patient said she slept well. Patient complains of pain all over her body including her chest abdomen and lower extremities. This pain is reproduced with palpation. 4 L nasal cannula saturations 97%. I decreased her to 2 L nasal cannula her saturations were 90 to 92%. creatinine 2.0, troponin decreased from 0.210 to 0.060, BNP decreased from 5690 to 3260 Patient with below the knee right DVT and PE. I will label this as an unprovoked PE although the patient is immobile at home and also has pulmonary nodules which will require further workup. She has remained hemodynamically stable with stable oxygenation on 2 L NC with improved troponin and BNP over the last 48 hours and I recommend converting her to a DAOC that will be covered by her insurance. given her anticipated immobility in the future as well as her possibly having a DVT in the late I recommend indefinite anticoagulation. I will check overnight oximetry on room air to qualify her for nocturnal oxygen. No evidence of bacterial pneumonia at this point and I will discontinue antibiotics. Will follow with you. (2) Lung nodule, multiple: Code(s): R91.8 - Other nonspecific abnormal finding of lung field Status: Acute Plan Patient is a never smoker With minimal exposure to secondhand smoke. Patient was found to have a 14 mm right lower lobe nodule and an 18 mm left upper lobe partly solid nodule. Recommend repeat CT scan in 3 months. Subjective Date/time seen: 05/07/22 08:30 Interval history: 2021:? This is a new pulmonary consult for pulmonary embolism and lung nodules. ? 86-year-old with a history of diabetes, hypertension, CKD, bilateral lower extremity DVTs in the late ,? hematemesis from a bleeding ulcer in the mid . ? History obtained from patient and patient's daughter. ? Regarding her DVTs in the late she remembers making a bank deposit and she almost fell.? She was admitted to the hospital for approximately 5-7 days with bilateral leg swelling and she remembers that they wrapped her legs but does not remember if they gave her any medicines.? She was told she had blood clots in both legs.? She has had no history of clots since then.? she has no Spe[place] family history of blood clots.? She has no history of strokes.
--- NOTE | 2022-05-07 08:50 | PDONCCONNOTE ---
Impression consulltation was cancelled by primary team [facility] - Date/Time Seen 05/07/22 08:50 - History of Present Illness 86-year-old female brought in by EMS with symptoms of shortness of breath for over the last week .? Patient cannot lie flat at this point secondary to being extremely short of breath and sleeping in a recliner.? She is also been having swelling to her legs.? she was found to have hypoxia and work up found to have PE and DVT on the lower extremity. CT scan found to have bilateral pulmonary nodules about 1.4cm and 1.8cm on the right and left. oncology consult is for evaluation of the pulmonary nodules suspicious for bronchogenic carcinoma. - Medical History Medical History (Last Updated 05/05/22 @ 01:29 by Raheem Hickey DO) Hypertension - Family History Family History (Last Reviewed 05/05/22 @ 04:38 by Jannet Leblanc RN) Mother Hypertension Sibling Breast cancer Other Family history of malignant neoplasm - Social History Social History (Last Reviewed 11/05/21 @ 14:42 by Yeimy Nolasco CMA) Alcohol Use: Alcohol intake: former Substance Use: Substance use: former Others: Spiritual care concerns: No Smoking Status: Smoking status: Never smoker Second hand tobacco smoke exposure: No - Medications Active Medications Generic Name Dose Route Start Last Admin Trade Name Freq PRN Reason Stop Dose Admin Calcitriol 0.5 mcg 05/05/22 09:00 05/06/22 09:47 Calcitriol 0.25 Mcg Capsule PO 0.5 mcg QAM ARANZA Administration Docusate Sodium 100 mg 05/06/22 15:36 05/06/22 15:46 Docusate Sodium 100 Mg Capsule PO 100 mg Q12H PRN Administration Constipation Ergocalciferol 50,000 unit 05/11/22 09:00 Ergocalciferol 50,000 Unit Capsule PO WEEKLY ARANZA Furosemide 40 mg 05/06/22 09:00 Furosemide Inj 40 Mg/4 Ml Vial IV PUSH DAILY ARANZA Heparin Sodium (Porcine) 6,000 units 05/05/22 16:35 Heparin Sodium 5,000 Units/Ml Vial IV PUSH PRN PRN aPTT less than 55 seconds Heparin Sodium (Porcine) 3,000 units 05/05/22 16:35 05/06/22 16:35 Heparin Sodium 5,000 Units/Ml Vial IV PUSH 3,000 units PRN PRN Administration aPTT 55 - 70 seconds Heparin Sodium/Dextrose 25,000 units in 250 mls @ 8 mls/hr 05/05/22 16:35 05/07/22 06:11 Heparin Sodium/D5w 100 Units/Ml IV CONT 800 units/hr .Q24H ARANZA 8 mls/hr Administration Protocol 800 UNITS/HR Lisinopril 20 mg 05/05/22 09:00 05/05/22 08:44 Lisinopril 20 Mg Tablet PO 20 mg DAILY ARANZA Administration Melatonin 5 mg 05/05/22 21:00 05/06/22 23:23 Melatonin 5 Mg Tablet PO Not Given HS ARANZA Pantoprazole Sodium 40 mg 05/05/22 09:00 05/06/22 09:47 Pantoprazole 40 Mg Tablet PO 40 mg QAM ARANZA Administration Perflutren Lipid Microsphere 0 ml 05/05/22 11:26 Perflutren Lipid Microspheres 1.5 Ml Vial Diluted To 10 Ml Total Volume IV PUSH ONCE PRN adequate visualization Protocol Simvastatin 20 mg 05/05/22 09:00 05/06/22 09:47 Simvastatin 20 Mg Tablet PO 20 mg DAILY ARANZA Administration - Allergies Allergies Allergy/AdvReac Type Severity Reaction Status Date / Time morphine Allergy Unknown Unknown Verified 05/05/22 01:44 Penicillins Allergy Unknown UNKNOWN Verified 05/05/22 01:44 Sulfa (Sulfonamide Allergy Unknown Unknown Verified 05/05/22 01:44 Antibiotics) Review of Systems - Neurologic Reports system reviewed and no additional complaints, except as documented Exam - Vital Signs Vital Signs - 24 hr 05/06/22 09:58 05/06/22 09:45 05/06/22 10:00 Temperature Pulse Rate 76 94 Respiratory Rate 16 Blood Pressure Pulse Oximetry 96 Oxygen Delivery Nasal Cannula Nasal Cannula Oxygen Flow Rate 2 2 05/06/22 12:00 05/06/22 12:00 05/06/22 12:00 Temperature 36.7 C Pulse Rate 94 82 76 Respiratory Rate 16 18 Blood Pressure 1
[2022-05-07] MEDS: PANTOPRAZOLE 40 MG TABLET PO (08:58)
[2022-05-07] MEDS: calcitrioL 0.25 MCG CAPSULE 0.5 MCG PO (08:58)
[2022-05-07] MEDS: SIMVASTATIN 20 MG TABLET PO (08:58)
[2022-05-07 11:23] LABS: Troponin I 0.052 ng/mL (0.000-0.034)
[2022-05-07 13:39] LABS: Partial Thromboplastin Time 48.8 SECONDS (22.3-36.8)
--- NOTE | 2022-05-07 13:42 | PCRCNOTE ---
SPOKE WITH CHARI TREVINO, HOME O2 EVAL ON HOLD, PT HAS WORSENING SOB AND NO DISCHARGE PLANS. [facility] LINK ORDERED FOR TONIGHT. WILL CHECK ON PT TOMORROW.
[2022-05-07] MEDS: HEPARIN SODIUM 5,000 UNITS/ML VIAL 6000 UNITS IV PUSH (13:58)
[2022-05-07] MEDS: MELATONIN 5 MG TABLET PO (20:45)
[2022-05-07] MEDS: APIXABAN 5 MG TABLET 10 MG PO (20:45)
[2022-05-08] VITALS (13 sets, daily range): BP systolic 123–142; BP diastolic 62–84; PULSE 60–95; RESP 18–22; TEMP 36.6–37.2; O2SAT 85–96
--- NOTE | 2022-05-08 00:59 | PCRCNOTE ---
PATIENT ON OVERNIGHT OXIMETRY. PATIENT DESAT TO 80, AND WAS NOT COMING BACK UP. APPLIED 1L O2 AT 2353.
[2022-05-08] MEDS: APIXABAN 5 MG TABLET 10 MG PO (08:50)
[2022-05-08] MEDS: calcitrioL 0.25 MCG CAPSULE 0.5 MCG PO (08:51)
[2022-05-08] MEDS: SIMVASTATIN 20 MG TABLET PO (08:51)
[2022-05-08] MEDS: PANTOPRAZOLE 40 MG TABLET PO (08:51)
--- NOTE | 2022-05-08 09:07 | PM.IMPN ---
Progress Note: A&P Assessment and Plan (1) Pulmonary embolism: Code(s): I26.99 - Other pulmonary embolism without acute cor pulmonale Status: Acute Assessment and Plan: Heparin drip discontinued, started on Eliquis (2) Congestive heart failure: Code(s): I50.9 - Heart failure, unspecified Status: Acute Assessment and Plan: Right heart strain noted on echo 2/2 PE, euvolemic at this time (3) Hypoxia: Code(s): R09.02 - Hypoxemia Status: Acute Assessment and Plan: Improving, now on 2L, appreciate pulm consult, 2/2 PE, follow-up home O2 eval and final pulm recommendations prior to discharge (4) Chronic renal failure, stage 3 (moderate): Onset Date: ~08/2016 Code(s): N18.3 - Chronic kidney disease, stage 3 (moderate) Status: Acute Assessment and Plan: Stable, continue to monitor (5) Lung nodule, multiple: Code(s): R91.8 - Other nonspecific abnormal finding of lung field Status: Acute Assessment and Plan: Nodule suspicious for bronchogenic carcinoma as well as unprovoked PE, concerning for underlying malignancy, recommend repeat CT chest in 3 months as opposed to lung biopsy due to acute PE and need for anticoagulation Continue Eliquis (6) Hyponatremia: Code(s): E87.1 - Hypo-osmolality and hyponatremia Status: Acute Assessment and Plan: Improving, likely secondary to hypervolemia Plan DVT prophylaxis on Eliquis Code status full code Subjective Date/time seen: 05/08/22 09:07 Interval history: 05/07: Resting comfortably on 2 L nasal cannula. No overnight events noted. No chest pain or shortness of breath. No nausea, vomiting or diarrhea. No fevers or chills. 05/08: No overnight events noted. No chest pain or shortness of breath. No nausea, vomiting or diarrhea. No fevers or chills. Review of Systems Review of Systems: 12 point review of systems was assessed and was negative except as noted in the HPI Exam Narrative: General: No acute distress, alert and oriented per baseline HEENT: Atraumatic, normocephalic, mucous membranes moist CV: Regular rate and rhythm, S1, S2 Lungs: Clear to auscultation bilaterally, no rales or crackles noted, no wheezes, good air entry Abdomen: Soft, nontender, nondistended Extremities: Normal to inspection Skin: No rashes noted, no lesions or wounds seen Psych: Euthymic, normal affect Objective Data Vital Signs Vital Signs: Vital Signs - 24 hr 05/07/22 10:00 05/07/22 11:12 05/07/22 12:00 Temperature Pulse Rate 77 77 Respiratory Rate 18 Blood Pressure Pulse Oximetry 92 Oxygen Delivery Nasal Cannula Nasal Cannula Oxygen Flow Rate 2 2 05/07/22 12:00 05/07/22 12:00 05/07/22 14:21 Temperature 97.2 F L Pulse Rate 87 92 Respiratory Rate 16 Blood Pressure 136/67 Pulse Oximetry 91 94 Oxygen Delivery Nasal Cannula Oxygen Flow Rate 2 05/07/22 14:00 05/07/22 16:00 05/07/22 16:00 Temperature Pulse Rate 86 86 78 Respiratory Rate 16 Blood Pressure Pulse Oximetry 94 Oxygen Delivery Nasal Cannula Oxygen Flow Rate 2 05/07/22 16:00 05/07/22 18:00 05/07/22 20:00 Temperature 97.8 F 97.9 F Pulse Rate 75 74 81 Respiratory Rate 22 H 18 Blood Pressure 111/46 L 157/77 H Pulse Oximetry 92 94 Oxygen Delivery Oxygen Flow Rate 05/07/22 20:00 05/07/22 20:00 05/07/22 22:00 Temperature Pulse Rate 81 77 83 Respiratory Rate 18 Blood Pressure Pulse Oximetry 94 Oxygen Delivery Nasal Cannula Oxygen Flow Rate 2 05/07/22 22:56 05/08/22 00:00 05/08/22 00:00 Temperature 97.9 F Pulse Rate 90 79 79 Respiratory Rate 18 18 Blood Pressure 102/67 Pulse Oximetry 90 90 Oxygen Delivery Nasal Cannula Oxygen Flow Rate 1 05/07/22 22:39 05/07/22 23:53 05/08/22 02:00 Temperature Pulse Rate 60 Respiratory Rate Blood Pressure Pulse Oximetry 91 90 Oxygen Deliv
--- NOTE | 2022-05-08 09:54 | PM.PNPUL ---
Progress Note: A&P Assessment and Plan (1) Pulmonary embolism: Code(s): I26.99 - Other pulmonary embolism without acute cor pulmonale Status: Acute Assessment and Plan: 05/06 Patient with 7 days of worsening shortness of breath, hemodynamics stability, hypoxemia, high probability perfusion scan, BNP of 5690, troponin is 0.247 and an echocardiogram that shows LV septal flattening, dilated RV with RV hypokinesis and an estimated pulmonary arterial systolic pressure 56. patient has been treated with IV heparin drip for 30 hours and states that clinically she is better and now breathing normal at rest, pleuritic chest pain has resolved and substernal chest pain has resolved. She remains hemodynamically stable and on 2 L nasal cannula. Her renal insufficiency prevents a CT angiogram at this time. LE dopplers pending. Worsening creatinine and Lasix has been held. At this time I will consider this an unprovoked PE. Of note the patient has been relatively immobile only walking to the bathroom for the last 2 weeks and she also has to pulmonary nodules which may be cancer. Risk assessment of early . Patient remains hemodynamically stable and has RV dysfunction and elevated BNP and troponin placing her at intermediate-high risk and she has a full PESI score of 30 (class 1, low risk) and a sPESI score of 2 (high risk). Using Chest guidelines (from 2020) statements 8 and 9, I agree with IV heparin anticoagulation while monitoring for any deterioration. Later in the day lower extremity Dopplers revealed a right posterior tibial and peroneal vein DVT. 05/07 Patient denies fever chills cough or hemoptysis. Patient said she slept well. Patient complains of pain all over her body including her chest abdomen and lower extremities. This pain is reproduced with palpation. 4 L nasal cannula saturations 97%. I decreased her to 2 L nasal cannula her saturations were 90 to 92%. creatinine 2.0, troponin decreased from 0.210 to 0.060, BNP decreased from 5690 to 3260 Patient with below the knee right DVT and PE. I will label this as an unprovoked PE although the patient is immobile at home and also has pulmonary nodules which will require further workup. She has remained hemodynamically stable with stable oxygenation on 2 L NC with improved troponin and BNP over the last 48 hours and I recommend converting her to a DAOC that will be covered by her insurance. given her anticipated immobility in the future as well as her possibly having a DVT in the late I recommend indefinite anticoagulation. I will check overnight oximetry on room air to qualify her for nocturnal oxygen. No evidence of bacterial pneumonia at this point and I will discontinue antibiotics. 05/08 Patient states that she is breathing close to normal. She has no pleuritic chest pain. She denies hemoptysis. She does complain of pain in the legs. She is on 1 L nasal cannula saturations 93%. Patient had an overnight oximetry on room air with saturations to 80% and she was placed on 1 L nasal cannula. The remainder of the night her baseline saturation was 88%. Lowest saturation was 78%. Time with saturation less than or equal to 88% was 198 minutes. I will repeat overnight oximetry on 3 L NC. Patient with below the knee right DVT and PE. Given her anticipated immobility in the future as well as her possibly having a DVT in the late I recommend indefinite anticoagulation. From a pulmonary perspective patient is ready to be discharged on these pulmonary medications. Apixaban 10 mg BID through 05/14 then 5 mg PO BID Oxygen at night at 3 L NC Formal home O2 assessment prior to discharge to determine her oxygen needs at rest and with ambulation. Follow-up in the Pulmonary Clinic in 3-4 weeks. I gave her a business card and informed our test evaluator. Discussed with Dr. Cerna, will sign off, call with questions. (2) Lung nodule, multiple: Code(s): R91.8
--- NOTE | 2022-05-08 10:29 | PCPTNOTE ---
Attempted to see patient for PT, however patient refused due to bilateral feet pain. RN aware
[2022-05-08] MEDS: ACETAMINOPHEN 500 MG TABLET 1000 MG PO (10:51)
--- NOTE | 2022-05-08 11:00 | PM.DS ---
DS: Admitting Diagnosis Discharge Date May 08, 2022 Admitting Diagnosis Chest pain DS: Discharge Diagnosis Discharge Diagnosis (1) Pulmonary embolism: Code(s): I26.99 - Other pulmonary embolism without acute cor pulmonale Status: Acute Assessment and Plan: Heparin drip discontinued, started on Eliquis (2) Congestive heart failure: Code(s): I50.9 - Heart failure, unspecified Status: Acute Assessment and Plan: Right heart strain noted on echo 2/2 PE, euvolemic at this time (3) Hypoxia: Code(s): R09.02 - Hypoxemia Status: Acute Assessment and Plan: Improving, now on 2L, appreciate pulm consult, 2/2 PE, follow-up home O2 eval and final pulm recommendations prior to discharge (4) Chronic renal failure, stage 3 (moderate): Onset Date: ~08/2016 Code(s): N18.3 - Chronic kidney disease, stage 3 (moderate) Status: Acute Assessment and Plan: Stable, continue to monitor, hold ENZO inhibitor (5) Lung nodule, multiple: Code(s): R91.8 - Other nonspecific abnormal finding of lung field Status: Acute Assessment and Plan: Nodule suspicious for bronchogenic carcinoma as well as unprovoked PE, concerning for underlying malignancy, recommend repeat CT chest in 3 months as opposed to lung biopsy due to acute PE and need for anticoagulation Continue Eliquis (6) Hyponatremia: Code(s): E87.1 - Hypo-osmolality and hyponatremia Status: Acute Assessment and Plan: Improving, likely secondary to hypervolemia Plan DVT prophylaxis on Eliquis Code status full code DS: Summary Hospital Course Hospital Course: 86-year-old female with past medical history significant for hypertension is presenting with chest pain. Patient was thought to have an NSTEMI and was hypoxic. Chest x-ray is abnormal and pneumonia could not be ruled out. Patient also was thought to be in acute heart failure, Cardiology was consulted and patient was her IV diuresis. To the NSTEMI, patient was placed on a heparin drip. She was also found to have mild hyponatremia that appeared to be at baseline. Pulmonology was consulted the and patient was found to have pain at the with right heart strain. She is transitioned to Eliquis. She was also noted to have lung nodules concerning for bronchogenic carcinoma. Pulmonology recommended repeating CT scan in 3 months. Patient was thought not to have pneumonia, antibiotics discontinued. Biopsy unable to be obtained because patient has to be on blood thinners for PE. IV Lasix was held due to worsening creatinine. Patient d/c in good condition on eliquis with outpatient follow up with pulm and oncology for surinder nodules and PE. Time Spent with Patient Time attestation: Total time spent providing and/or coordinating discharge services: Exam Narrative: General: No acute distress, alert and oriented per baseline HEENT: Atraumatic, normocephalic, mucous membranes moist CV: Regular rate and rhythm, S1, S2 Lungs: Clear to auscultation bilaterally, no rales or crackles noted, no wheezes, good air entry Abdomen: Soft, nontender, nondistended Extremities: Normal to inspection Skin: No rashes noted, no lesions or wounds seen Psych: Euthymic, normal affect DS: Data Data Completed and Pending Labs on day of discharge: Labs from last 24 hours 05/07/22 05/07/22 13:16 10:48 APTT 48.8 H Troponin I 0.052 H* Discharge Plan Discharge Attending physician on discharge: Theresa Cerna Consulting providers: Juice Huertas Discharging Clinician: Theresa Cerna Anticipated Discharge Date/Time: 05/08/22 10:56 Patient Disposition: Home Health Service Discharge Instructions: Per Care Coordination. Patient to have [facility] for RN/PT/OT eval and treat [phone]. They will contact you to schedule first visit. Patient Instructions: Antibiotic Form, Heparin/Sodium Chl
--- NOTE | 2022-05-08 11:43 | HOMEO2EVAL ---
Evaluation was performed at [facility] Home Oxygen Evaluation RC: Home Oxygen (O2) Evaluation Start: 05/07/22 12:17 Freq: ONCE Status: Active Protocol: RPE Activity Type Activity Date Activity User E-sign Co-sign Detail Recorded Client Recorded Date Recorded By Document 05/08/22 11:30 DJO [id number] 05/08/22 11:42 DJO Document 05/08/22 11:33 DJO [id number] 05/08/22 11:42 DJO Document 05/08/22 11:42 [email or web address] [id number] 05/08/22 11:42 DJO 05/08/22 05/08/22 05/08/22 11:30 11:33 11:42 Home O2 Evaluation Test Phase Resting Resting Resting Oxygen Delivery Room Air Nasal Cannula Nasal Cannula Oxygen Flow Rate (L/min) 1 2 Pulse Oximetry (90-100 %) 85 L 89 L 93 Pulse Rate (60-100 beats/min) 92 95 95 Home Oxygen Evaluation Comments PT. COULD NOT AMBULATE AT THIS TIME. PT. REQUIRES 2LPM AT REST AND 3LPM AT NIGHT. Treatment Charges O2 Evaluation - Inpatient
--- NOTE | 2022-05-08 12:02 | PCRCNOTE ---
HOME O2 SET UP WITH [facility] [phone]. THEY WILL BRING TANK TO ROOM. SPOKE WITH PATIENT'S DAUGHTER AND INSTRUCTED HER TO CALL THEM WHEN PT. IS DISCHARGED FOR SETUP.
== END 2022-05-08 15:08 | disposition home health service (06) | DRG 176 ==
LOC: ANHED 02:33 → ANHIMU 04:06
PROVIDERS: Internal Medicine; Nurse Practitioner; Admitting Provider Internal Medicine; Emergency Provider Emergency Medicine; PCP Family Medicine; Visit Provider Student in an Organized Health Care Education/Training Program
DX: I26.99 Other pulmonary embolism without acute cor pulmonale (principal); I13.0 Hypertensive heart and chronic kidney disease with heart failure and stage 1 through stage 4 chronic kidney disease, or unspecified chronic kidney disease; E87.1 Hypo-osmolality and hyponatremia; I82.441 Acute embolism and thrombosis of right tibial vein; I82.451 Acute embolism and thrombosis of right peroneal vein; I11.0 Hypertensive heart disease with heart failure; Z20.822 Contact with and (suspected) exposure to COVID-19; I50.9 Heart failure, unspecified; N18.30 Chronic kidney disease, stage 3 unspecified; E78.5 Hyperlipidemia, unspecified; R91.8 Other nonspecific abnormal finding of lung field
CPT/HCPCS: 36415; 71045; 71250; 74176; 78580; 80048; 80053; 83690; 83735; 83880; 84484; 85025; 85610; 85730; 93005; 93306; 93970; 94618; 94762; 97161; 97165; 97530; 97535; 99291; A9270; A9540; C9803; J0456; J0696; J1644; J1940; J3475; J7040; U0003; U0005

== ENCOUNTER 2022-05-27 10:49 | Outpatient (CLI) | payer MEDICARE, SELFPAY ==
--- NOTE | ~2022-05-27 | PE_ITS ---
EXAMINATION: PET skull to mid thigh DATE: 05/27/2022 12:45 INDICATION: Pulmonary nodule suspicious for bronchogenic carcinoma TECHNIQUE: Blood glucose level was 111 mg/dL. 8.773 mCi of 18-fluorodeoxyglucose (18-FDG) was adminis tered i.v. Low dose computed tomography (CT) images were acquired from the base of the brain to the p roximal thighs for attenuation correction and anatomic localization. Positron emission tomography (PE T) images were acquired in the same distribution beginning 66 minutes after injection. Images includi ng fused PET/CT images were reconstructed in axial, coronal, and sagittal planes. Automated exposure control technique was employed. The dose-length product was 1067.67mGy-cm. COMPARISON: CT chest, abdomen and pelvis dated 05/05/2022 FINDINGS: Head/neck: There is symmetric increased activity in the oral cavity, lingual tonsils, laryngeal muscles and ocul ar muscles without CT correlate, likely physiologic. Atherosclerotic calcifications at the bilateral carotid bulbs. No pathologically enlarged cervical lymphadenopathy or suspicious foci of increased FD G uptake in the visualized head or neck. Chest: Assessment of fine pulmonary parenchymal detail is somewhat limited by respiratory motion. No interva l change in a 1.9 x 1.5 cm subsolid nodule in the posterior segment of the left upper lobe which is w ithout evident corresponding FDG activity on PET imaging. Both the linear band of discoid atelectasis and previously noted right lower lobe nodule have resolved and are not visualized on the current jermaine dy. No other suspicious pulmonary nodules, pneumonia, pulmonary edema or pleural effusion. Calcified right hilar and mediastinal lymph nodes consistent with old granulomatous disease. Cardiomegaly. Aort ic valve calcification and coronary artery calcification. No pericardial effusion. Thoracic aorta is normal in caliber. No pathologically enlarged or FDG avid thoracic lymphadenopathy. Abdomen/pelvis/proximal thighs: Physiologic renal accumulation and excretion of FDG activity in the kidneys, bladder and along portio ns of ureters. Normal degree and heterogenous pattern of increased uptake throughout the liver withou t radiologic correlate or dominant FDG avid lesion. Gallbladder is not visualized and likely surgical ly absent. The pancreas, spleen and bilateral adrenal glands are normal. Mild uptake scattered throug hout the bowels without radiologic correlate, also likely physiologic. The uterus is not identified a nd has likely been surgically resected. No other abnormal foci of increased FDG uptake or pathologica lly enlarged lymphadenopathy in the abdomen, pelvis or proximal thighs. Musculoskeletal: Bipolar type right hip hemiarthroplasty. Severe left glenohumeral osteoarthritis. Mild thoracic dextr oscoliosis with moderate to severe spondylosis. Mild to moderate cervical and lumbar spondylosis. Chr onic mild anterior wedging at T11 and T12. No suspicious lytic, blastic or FDG avid bone lesions. IMPRESSION: 1. No evident FDG uptake associated with a 1.9 x 1.5 cm subsolid nodule in the posterior left upper l obe. While reassuring a, slowly growing bronchoalveolar carcinoma can present without significant FDG uptake and would recommend six-month follow-up noncontrast chest CT. 2. No other lesions suspicious for primary malignancy or metastatic disease in the neck, chest, abdom en or pelvis. Reviewed, dictated and finalized at location A. IMPRESSION: 1. No evident FDG uptake associated with a 1.9 x 1.5 cm subsolid nodule in the posterior left upper lobe. While reassuring a, slowly growing bronchoalveolar c arcinoma can present without significant FDG uptake and would recommend six-mon th follow-up noncontrast chest CT. 2. No other les
[2022-05-27 11:17] LABS: Glucose Point of Care 111 mg/dl (65-105)
== END 2022-05-27 10:50 | disposition home or self-care (01) ==
LOC: ANHIMG 10:54
PROVIDERS: PCP Family Medicine; Visit Provider Family Medicine
DX: R91.8 Other nonspecific abnormal finding of lung field (principal)
CPT/HCPCS: 78815; A9552

== ENCOUNTER 2022-11-03 11:47 | Inpatient (IN) | payer MEDICARE, SELFPAY ==
--- NOTE | ~2022-11-03 | XR_ITS ---
Clinical Indication: Weakness AP and lateral views of the chest: Comparison: 05/05/2022 Findings: The lungs are clear, without evidence of focal consolidation or pleural effusion. Cardiome diastinal silhouette is stable. Bones and soft tissues are unremarkable. Impression: Clear lungs. Reviewed, dictated and finalized at [facility]. RUCTIONAL PARAPROFESSIONAL Impression: Clear lungs.
--- NOTE | ~2022-11-03 | XR_ITS ---
Left foot Technique: AP, oblique, and lateral views were obtained. Clinical History: First MTP joint pain Findings: No acute fracture or dislocation is seen. Osseous alignment is anatomic. Joint spaces are p reserved without erosive or degenerative change. Soft tissues are unremarkable. Impression: Unremarkable left foot radiographs. Reviewed, dictated and finalized at [facility]. ERENCE CENTER MANAGER Impression: Unremarkable left foot radiographs.
[2022-11-03 11:49] VITALS: BP 140/59; PULSE 68; RESP 16; TEMP 37.2; O2SAT 96
--- NOTE | 2022-11-03 12:01 | ECG_ITS ---
Measurements Intervals [place] Rate: 60 P: 32 NE: 183 QRS: -13 QRSD: 172 T: -20 QT: 454 QTc: 455 Interpretive Statements SINUS RHYTHM RIGHT BUNDLE BRANCH BLOCK [120+ ms QRS DURATION, UPRIGHT V1, 40+ ms S IN I/aVL/V4/V5/V6] VOLTAGE CRITERIA FOR LVH [MEETS CRITERIA IN ONE OF: R(aVL), S(V1), R(V5), R(V5/V6)+S(V1)] COMPARED TO ECG 05/05/2022 01:15:23 SINUS RHYTHM NOW PRESENT Electronically Signed On 11-04-2022 11:16:56 [employer] by Sherin Oliveros M.D.
[2022-11-03 12:59] LABS: Basophils Absolute Auto 0.1 K/mm3 (0.0-0.1); Basophils Percent Auto 0.5 % (0.2-1.2); Eosinophils Absolute Auto 0.2 K/mm3 (0-0.3); Hematocrit 32.9 % (37.0-47.0); Hemoglobin 10.7 g/dL (12.0-15.0); Immature Granulocyte Absolute 0.05 K/mm3 (0.00-0.031); Immature Granulocyte Percent A 0.5 % (0-0.5); Lymphocytes Absolute Auto 2.54 K/mm3 (0.9-3.2); Lymphocytes Percent Auto 25.8 % (18.3-44.2); Mean Corpuscular HGB Conc 32.5 g/dl (32-36); Mean Corpuscular Hemoglobin 30.7 pg (26-34); Mean Corpuscular Volume 94.5 fl (80-100); Mean Platelet Volume 11.2 fl (7.4-10.4); Monocytes Absolute Auto 0.9 K/mm3 (0.1-0.6); Monocytes Percent Auto 9.3 % (2.6-8.5); Neutrophils Absolute Auto 6.1 K/mm3 (1.3-6.7); Neutrophils Percent Auto 61.9 % (45.5-73.1); Platelet Count Result 169 k/mm3 (150-375); Red Blood Count 3.48 M/mm3 (4.2-5.4); Red Cell Distribution Width 13.3 % (11.5-14.5); White Blood Count 9.8 K/mm3 (4.5-10.0)
[2022-11-03 13:10] LABS: Alanine Aminotransferase 15 U/L (6-35); Albumin Level 3.6 g/dL (3.5-5.1); Alkaline Phosphatase 89 U/L (38-126); Anion Gap 4 mmol/L (8-16); Aspartate Amino Transferase 21 U/L (14-36); Blood Urea Nitrogen 14 mg/dL (7-17); Calcium 9.5 mg/dL (8.4-10.2); Carbon Dioxide 30 mmol/L (22-30); Chloride 103 mmol/L (98-107); Estimated CRCL calculation 34 ml/min; Estimated Glomerular Filt Rate 43; Glucose 128 mg/dL (65-110); Potassium 3.7 mmol/L (3.4-5.0); Sodium 137 mmol/L (137-145)
[2022-11-03 13:36] LABS: Uric Acid 8.5 mg/dL (2.5-7.5)
[2022-11-03] MEDS: COLCHICINE 0.6 MG TABLET 1.2 MG PO (14:03)
[2022-11-03 14:21] VITALS: BP 131/57; PULSE 59; RESP 18; O2SAT 99
[2022-11-03 14:30] LABS: Appearance Urine Slightly Cloudy (Clear); Bilirubin Urine Negative (Negative); Blood Urine Negative (Negative); Color Urine Yellow (Yellow); Glucose Urine UA Negative (Negative); Ketones Urine Negative (Negative); Leukocyte Esterase Ur Negative LEU/UL (Negative); Nitrate Urine Negative (Negative); Protein Urine Negative (Negative); Specific Grav Ur <= 1.005 (1.001-1.035); Urobilinogen Urine 0.2 mg/dL (<2.0); pH Urine 5.5 (5.0-9.0)
[2022-11-03 14:37] LABS: Bacteria Urine 2+ /hpf; Mucus Urine Rare /lpf; RBC Urine 0-2 /hpf (0-2); WBC Urine 0-3 /hpf
[2022-11-03 14:49] LABS: Add Urine Microscopic? YES
[2022-11-03] MEDS: COLCHICINE 0.6 MG TABLET PO (15:02)
--- NOTE | 2022-11-03 15:18 | ED.WEAKNESS ---
HPI - Weakness General Chief complaint: Weakness Stated complaint: increase weakness, fever, left foot red Time Seen by Provider: 11/03/22 12:01 History of Present Illness HPI Narrative: Patient is an 87-year-old female who presents ER with inability to walk. Reports she woke up this morning and she has redness to her left great toes/MTP. She has pain with trying to bear weight so she cannot walk. Reports fever as well. Denies trauma to the foot. No history of gout. No additional complaints. Related Data Home Medications Medication Instructions Recorded Confirmed omeprazole 20 mg capsule,delayed 20 mg PO DAILY 11/05/21 11/03/22 release ergocalciferol (vitamin D2) 1,250 1,250 mcg PO WEEKLY 05/05/22 11/03/22 mcg (50,000 unit) capsule acetaminophen 500 mg capsule 500 mg PO BID 06/05/22 11/03/22 polyethylene glycol 3350 17 17 g PO DAILY 06/05/22 11/03/22 gram/dose oral powder (Miralax) Allergies Allergy/AdvReac Type Severity Reaction Status Date / Time morphine Allergy Unknown Unknown Verified 11/03/22 18:09 Penicillins Allergy Unknown UNKNOWN Verified 11/03/22 18:09 Sulfa (Sulfonamide Allergy Unknown Unknown Verified 11/03/22 18:09 Antibiotics) Review of Systems Review of Systems: All systems reviewed & are unremarkable except as noted in HPI and below Constitutional: Constitutional: Reports chills and Reports fever(s) ENT: Denies nasal congestion and Denies sore throat Cardiovascular: Cardiovascular: Denies chest pain, Denies rapid heart rate and Denies radiating jaw, neck or arm pain Respiratory: Respiratory: Denies cough, Denies dyspnea and Denies wheezing Gastrointestinal: Gastrointestinal: Denies abdominal pain, Denies nausea and Denies vomiting Musculoskeletal: Musculoskeletal: Reports arthralgias and Denies joint swelling Integumentary/Breasts: Skin/Breast: Reports erythema and Denies rash PMFSH Past Medical History Medical History Cerebral aneurysm Chronic GERD Chronic renal failure, stage 3 (moderate) (~08/2016) Chronic respiratory failure with hypoxia 2 liters in the day and 3 at night CRF (chronic renal failure) Diabetes type 2, controlled DVT (deep venous thrombosis) Dyslipidemia (~10/2014) Hypertension Lung nodule, multiple Pulmonary embolism Surgical History Surgical History H/O hemorrhoidectomy H/O: hysterectomy History of appendectomy History of hip replacement History of tonsillectomy and adenoidectomy Status post cholecystectomy Family History Family History Mother Hypertension Cerebrovascular accident Sibling Breast cancer Other Family history of malignant neoplasm Social History Social History (Updated 11/03/22 @ 21:49 by Vannesa Vanessa NP) Social History: The patient is and has 4 children. Her daughter in-law braden is her poa. 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 Code status full code Smoking status: Never smoker Second hand tobacco smoke exposure: No Alcohol intake: never Substance use: never Lack of Transportation: No Lack of Food: Never True Current Housing: I Have Housing Concerned About Future Housing: No Difficulty Paying Gas/Electric Bills: No Difficulty Paying for Meds: No Currently Unemployed: No Education: High School Diploma/GED Difficulty w/ Childcare or Family Care: No Spiritual care concerns: No Exam Narrative: GENERAL: Well-appearing, well-nourished, and in no acute distress. HEAD: Normocephalic, atraumatic. EYES: PERRL and EOMI. ENT: Mucous membranes moist. CHEST: Clear to auscultation. No respiratory distress. HEART: Regular rate and rhythm. Normal peripheral pulses. ABDOMEN: Soft, nontender, nondistended. EXTREMITIES: Left foot with tenderness at the first MTP with increased pain
[2022-11-03 15:26] LABS: Influenza A QL RT-PCR Negative (Negative); Influenza B QL RT-PCR Negative (Negative); SARS-CoV-2 RNA PCR Negative
[2022-11-03 15:35] VITALS: BP 135/64; PULSE 62; RESP 20; O2SAT 97
--- NOTE | 2022-11-03 16:13 | PM.IMHP ---
H&P: HPI History of Present Illness Date/Time: 11/03/22 16:13 Chief Complaint: Pain to left foot Narrative: This is an 87-year-old female patient who lives with her daughter in law. The patient got up during the night and was stumbling around in the dark. She was having difficulty walking and the [id number] stated she was not sure if the patient at hit her toe or was just in pain. This morning they noticed that her left great toe was red and swellon. The [id number]-jw-sxh reported that the patient had a fever of over 100 this morning. Left foot x-ray was read as unremarkable left foot radiographs. The patient had no prior history of gout. H&H is 10.7 and 32.9. Creatinine is 1.2 with a previous creatinine of 1.52. Glucose was 128. Uric acid 8.5. Influenza A/B and COVID are all negative. The patient was given colchicine in the emergency room. The daughter lost stated that the patient would not be able to go back home because she has difficulty ambulating and they are fearful that she will fall. The patient is being admitted to observation status on the date of service of 11/03/2022. Review of Systems Review of Systems: See HPI All systems reviewed & are unremarkable except as noted in HPI and below Constitutional: Constitutional: Reports as per HPI and Reports no additional constitutional complaints Eyes: Eyes: Reports as per HPI and Reports no additional eye complaints ENT: Reports system reviewed and no additional complaints, except as documented and Reports Normal hearing present Cardiovascular: Cardiovascular: Reports no additional cardiovascular complaints Respiratory: Respiratory: Reports no additional respiratory complaints and Reports no additional respiratory complaints Gastrointestinal: Gastrointestinal: Reports as per HPI and Reports no additional gastrointestinal complaints Musculoskeletal: Musculoskeletal: Reports no additional musculoskeletal complaints Integumentary/Breasts: Skin/Breast: Reports system reviewed and no additional complaints, except as docu and Reports as per HPI Neurologic: Reports system reviewed and no additional complaints, except as documented, Reports as per HPI and Reports Normal hearing present Psychiatric: Psychiatric: Reports no additional psychiatric complaints and Reports as per HPI Endocrine: Endocrine: Reports no additional endocrine complaints Hematologic/Lymphatic: Hematologic/Lymphatic: Reports no additional hematologic/lymphatic complaints Allergic/Immunologic: Allergic/Immunologic: Reports no additional allergic/immunologic complaints PMFSH Past Medical History Medical History Cerebral aneurysm Chronic GERD Chronic renal failure, stage 3 (moderate) (~08/2016) Chronic respiratory failure with hypoxia 2 liters in the day and 3 at night CRF (chronic renal failure) Diabetes type 2, controlled DVT (deep venous thrombosis) Dyslipidemia (~10/2014) Hypertension Lung nodule, multiple Pulmonary embolism Surgical History Surgical History H/O hemorrhoidectomy H/O: hysterectomy History of appendectomy History of hip replacement History of tonsillectomy and adenoidectomy Status post cholecystectomy Family History Family History Mother Hypertension Cerebrovascular accident Sibling Breast cancer Other Family history of malignant neoplasm Social History Social History (Updated 11/03/22 @ 21:49 by Vannesa Vanessa NP) Social History: The patient is and has 4 children. Her daughter in-law braden is her poa. 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 Code status full code Smoking status: Never smoker Second hand tobacco smoke exposure: No Alcohol intake: never Substance use: never Lack of Transportation: No Lack of Food: Never True Current Panda
--- NOTE | 2022-11-03 17:06 | PC.NURSE ---
Attempted to ambulate patient with walker. Patient was unable to ambulate.
[2022-11-03 17:57] VITALS: BMI 36.4
--- NOTE | 2022-11-03 18:16 | PC.NURSE ---
This patient, Cecy Cantu, was admitted to 3 Med Surg Room 314-01. Patient/family oriented to hospital policies and general routines including ID bracelet, bed and alarms, visiting hours, pain management, procedures, bathroom and other care routines, personal items, smoking policy, room service/diet, and visiting hours. Information on how to activate the Rapid Response Team has been discussed. Patient/Family are encouraged to report perceived risks to care and to ask questions if they do not understand what they are told or what they should do.
[2022-11-03 20:00] VITALS: PULSE 62; RESP 20; O2SAT 97
[2022-11-03 21:39] VITALS: BP 150/50; PULSE 63; RESP 14; TEMP 36.7; O2SAT 97
[2022-11-04 05:41] VITALS: BP 140/59; PULSE 72; RESP 14; TEMP 37.1; O2SAT 97
[2022-11-04 07:52] LABS: Basophils Percent Auto 0.4 % (0.2-1.2); Eosinophils Absolute Auto 0.1 K/mm3 (0-0.3); Eosinophils Percent Auto 1.4 % (0-4.4); Hematocrit 30.3 % (37.0-47.0); Immature Granulocyte Absolute 0.04 K/mm3 (0.00-0.031); Immature Granulocyte Percent A 0.4 % (0-0.5); Lymphocytes Absolute Auto 2.49 K/mm3 (0.9-3.2); Lymphocytes Percent Auto 27.7 % (18.3-44.2); Mean Corpuscular Hemoglobin 31.3 pg (26-34); Monocytes Absolute Auto 0.9 K/mm3 (0.1-0.6); Monocytes Percent Auto 10.2 % (2.6-8.5); Neutrophils Absolute Auto 5.4 K/mm3 (1.3-6.7); Neutrophils Percent Auto 59.9 % (45.5-73.1); Platelet Count Result 155 k/mm3 (150-375); Red Blood Count 3.19 M/mm3 (4.2-5.4); Red Cell Distribution Width 13.2 % (11.5-14.5)
[2022-11-04 08:04] LABS: Alanine Aminotransferase 14 U/L (6-35); Albumin Level 3.6 g/dL (3.5-5.1); Alkaline Phosphatase 85 U/L (38-126); Anion Gap 5 mmol/L (8-16); Aspartate Amino Transferase 24 U/L (14-36); Bilirubin,Total 1.1 mg/dL (0.2-1.3); Blood Urea Nitrogen 13 mg/dL (7-17); Carbon Dioxide 26 mmol/L (22-30); Chloride 101 mmol/L (98-107); Estimated CRCL calculation 37 ml/min; Estimated Glomerular Filt Rate 47; Glucose 119 mg/dL (65-110); Magnesium 1.7 mg/dL (1.6-2.3); Potassium 3.7 mmol/L (3.4-5.0); Sodium 132 mmol/L (137-145)
[2022-11-04 08:05] LABS: Lactic Acid Reflex 0.7 mmol/L (0.7-2.0)
--- NOTE | 2022-11-04 08:06 | PM.IMPN ---
Progress Note: A&P Assessment and Plan (1) Gout: Code(s): M10.9 - Gout, unspecified Status: Acute Assessment and Plan: Patient presented with increased redness and pain to left great toe distal and first proximal PIP site. She reportedly had a low grade temp prior to admission. Xray left foot unremarkable. She may or may not still be taking HCTZ, but risk factors include age and CKD. uric acid was 8.5. Clinical diagnosis rule score 10 suggesting high probability of gout for onset, age, single joint, first metatarsal involvement, h/o HTN and elevated uric acid>5.88 Treated with colchicine 1.2 mg in the ED and started on 0.6 mg BID. Monitor renal function. Will hold off on glucocorticoids due to concern for possible cellulitis and this may exacerbate. With h/o indomethacin due to CKD Consider joint aspiration to diagnose gout. consulted PT and OT for evaluation and doggy daycare activities director for possible rehab facility. Repeat uric acid 2 weeks after flare resolves. (2) Cellulitis: Qualifiers: Site of cellulitis: extremity Code(s): L03.90 - Cellulitis, unspecified Status: Acute Assessment and Plan: Acute cellulitis appears unlikely due to high score for gout diagnosis rule . Stop Vancomycin and monitor off antibiotics. WBC 9. Lactic acid 0.7, however this was drawn after Vancomycin given and may cause mixed picture. Will check procalcitonin. (3) Cerebral aneurysm: Code(s): I67.1 - Cerebral aneurysm, nonruptured Status: Chronic Assessment and Plan: To be aware. According to the daughter in-law and patient is being monitored outpatient tillman. Is felt that the patient has too many risk factors to have surgery performed at this time. (4) Dyslipidemia: Onset Date: ~10/2014 Code(s): E78.5 - Hyperlipidemia, unspecified Status: Chronic Assessment and Plan: Chronic, Continue with Zocor (5) Chronic renal failure, stage 3 (moderate): Onset Date: ~08/2016 Code(s): N18.3 - Chronic kidney disease, stage 3 (moderate) Status: Acute Assessment and Plan: Chronic, stage 3-4, prior creatinine level 1.3 to 2.3 on previous visits; baseline eGFR 20-39 creatinine is 1.2, eGFR 47 and at baseline. Monitor on colchicine therapy. Avoid nephrotoxic medications (6) Lung nodule, multiple: Code(s): R91.8 - Other nonspecific abnormal finding of lung field Status: Acute Assessment and Plan: She is being monitored outpatient with CT scans. The patient did have a PET scan on 05/27/2022 showed no evident FDG uptake associated with a 1.9 x 1.5 cm subsolid nodule in the posterior left upper lobe but six-month follow-up noncontrast chest CT recommended to evaluate for possible slow growing brochealveolar carcinoma. No other lesions suspicious for primary malignancy or metastatic disease in the neck, chest, abdomen or pelvis. Monitor for now. (7) Pulmonary embolism: Code(s): I26.99 - Other pulmonary embolism without acute cor pulmonale Status: Chronic Assessment and Plan: H/O DVT and PE. Continue Eliquis (8) Chronic GERD: Code(s): K21.9 - Gastro-esophageal reflux disease without esophagitis Status: Chronic Assessment and Plan: Continue with PPI (9) Chronic respiratory failure with hypoxia: Code(s): J96.11 - Chronic respiratory failure with hypoxia Status: Chronic Assessment and Plan: Chronic, likely secondary to pulmonary hypertension with PAP 56 mmHg Continue home oxygen at 2 L during the day and 3 L at night (10) Congestive heart failure: Qualifiers: Heart failure type: right-sided Heart failure chronicity: chronic Qualified Code(s): I50.812 - Chronic right heart failure Code(s): I50.9 - Heart failure, unspecified Status: Acute Assessment and Plan: Chronic, right heart failure, not in acute exace
[2022-11-04 08:20] LABS: Hemoglobin A1C 5.8 % (<5.7)
[2022-11-04 08:56] VITALS: O2SAT 95
[2022-11-04] MEDS: PANTOPRAZOLE 40 MG TABLET PO ×2 (09:07→20:13)
[2022-11-04] MEDS: lisinopriL 20 MG TABLET 40 MG PO (09:08)
[2022-11-04] MEDS: SIMVASTATIN 20 MG TABLET PO (09:08)
[2022-11-04] MEDS: polyethylene glycoL 3350 17 GM POWD.PACK PO (09:09)
[2022-11-04] MEDS: COLCHICINE 0.6 MG TABLET PO ×2 (09:09→20:13)
[2022-11-04] MEDS: APIXABAN 5 MG TABLET PO ×2 (09:09→20:13)
[2022-11-04 14:00] VITALS: BP 128/54; PULSE 63; RESP 22; TEMP 37; O2SAT 95
[2022-11-04 15:36] LABS: CRP 7.6 mg/dL (<1.0)
[2022-11-04 17:40] LABS: Procalcitonin 0.1 ng/mL
[2022-11-04 20:00] VITALS: O2SAT 95
[2022-11-04 21:52] VITALS: BP 113/41; PULSE 58; RESP 16; TEMP 37.2; O2SAT 94
[2022-11-05] MEDS: HYDROcodone/acetaminophen (*CRX) 5-325 MG TABLET 1 TAB PO (01:49)
[2022-11-05 01:59] VITALS: TEMP 37.2
[2022-11-05 05:37] VITALS: BP 128/67; PULSE 58; RESP 18; TEMP 36.7; O2SAT 100
[2022-11-05 07:54] LABS: Alanine Aminotransferase 15 U/L (6-35); Albumin Level 3.4 g/dL (3.5-5.1); Alkaline Phosphatase 99 U/L (38-126); Anion Gap 5 mmol/L (8-16); Aspartate Amino Transferase 22 U/L (14-36); Blood Urea Nitrogen 16 mg/dL (7-17); Carbon Dioxide 28 mmol/L (22-30); Chloride 99 mmol/L (98-107); Estimated CRCL calculation 27 ml/min; Estimated Glomerular Filt Rate 33; Glucose 112 mg/dL (65-110); Potassium 3.5 mmol/L (3.4-5.0); Sodium 132 mmol/L (137-145)
[2022-11-05 07:55] LABS: Basophils Percent Auto 0.5 % (0.2-1.2); Eosinophils Absolute Auto 0.1 K/mm3 (0-0.3); Eosinophils Percent Auto 1.4 % (0-4.4); Hematocrit 29.8 % (37.0-47.0); Hemoglobin 9.7 g/dL (12.0-15.0); Immature Granulocyte Absolute 0.04 K/mm3 (0.00-0.031); Immature Granulocyte Percent A 0.5 % (0-0.5); Lymphocytes Absolute Auto 2.14 K/mm3 (0.9-3.2); Lymphocytes Percent Auto 24.9 % (18.3-44.2); Mean Corpuscular HGB Conc 32.6 g/dl (32-36); Mean Corpuscular Hemoglobin 30.6 pg (26-34); Mean Platelet Volume 11.1 fl (7.4-10.4); Monocytes Absolute Auto 1.2 K/mm3 (0.1-0.6); Monocytes Percent Auto 13.4 % (2.6-8.5); Neutrophils Absolute Auto 5.1 K/mm3 (1.3-6.7); Neutrophils Percent Auto 59.3 % (45.5-73.1); Platelet Count Result 167 k/mm3 (150-375); Red Blood Count 3.17 M/mm3 (4.2-5.4); Red Cell Distribution Width 13.1 % (11.5-14.5); White Blood Count 8.6 K/mm3 (4.5-10.0)
[2022-11-05 08:40] VITALS: O2SAT 95
[2022-11-05] MEDS: SIMVASTATIN 20 MG TABLET PO (08:40)
[2022-11-05] MEDS: COLCHICINE 0.6 MG TABLET PO (08:40)
[2022-11-05] MEDS: lisinopriL 20 MG TABLET 40 MG PO (08:40)
[2022-11-05] MEDS: polyethylene glycoL 3350 17 GM POWD.PACK PO (08:40)
[2022-11-05] MEDS: APIXABAN 5 MG TABLET PO (08:41)
[2022-11-05] MEDS: PANTOPRAZOLE 40 MG TABLET PO (08:41)
--- NOTE | 2022-11-05 09:08 | PM.IMPN ---
Progress Note: A&P Assessment and Plan (1) Gout: Code(s): M10.9 - Gout, unspecified Status: Acute Assessment and Plan: Patient presented with increased redness and pain to left great toe distal and first proximal PIP site. She reportedly had a low grade temp prior to admission. Xray left foot unremarkable. She may or may not still be taking HCTZ, but risk factors include age and CKD. uric acid was 8.5. Clinical diagnosis rule score 10 suggesting high probability of gout for onset, age, single joint, first metatarsal involvement, h/o HTN and elevated uric acid>5.88 Treated with colchicine 1.2 mg in the ED and started on 0.6 mg BID. Monitor renal function. Will hold off on glucocorticoids due to concern for possible cellulitis and this may exacerbate. With h/o indomethacin due to CKD Consider joint aspiration to diagnose gout. consulted PT and OT for evaluation and care director rn for possible rehab facility. Repeat uric acid 2 weeks after flare resolves. (2) Cellulitis: Qualifiers: Site of cellulitis: extremity Code(s): L03.90 - Cellulitis, unspecified Status: Acute Assessment and Plan: Acute cellulitis appears unlikely due to high score for gout diagnosis rule . Stop Vancomycin and monitor off antibiotics. WBC 9. Lactic acid 0.7, however this was drawn after Vancomycin given and may cause mixed picture. Will check procalcitonin. (3) Cerebral aneurysm: Code(s): I67.1 - Cerebral aneurysm, nonruptured Status: Chronic Assessment and Plan: To be aware. According to the daughter in-law and patient is being monitored outpatient [facility]. Is felt that the patient has too many risk factors to have surgery performed at this time. (4) Dyslipidemia: Onset Date: ~10/2014 Code(s): E78.5 - Hyperlipidemia, unspecified Status: Chronic Assessment and Plan: Chronic, Continue with Zocor (5) Chronic renal failure, stage 3 (moderate): Onset Date: ~08/2016 Code(s): N18.3 - Chronic kidney disease, stage 3 (moderate) Status: Acute Assessment and Plan: Chronic, stage 3-4, prior creatinine level 1.3 to 2.3 on previous visits; baseline eGFR 20-39 creatinine is 1.2, eGFR 47 and at baseline. Monitor on colchicine therapy. Avoid nephrotoxic medications (6) Lung nodule, multiple: Code(s): R91.8 - Other nonspecific abnormal finding of lung field Status: Acute Assessment and Plan: She is being monitored outpatient with CT scans. The patient did have a PET scan on 05/27/2022 showed no evident FDG uptake associated with a 1.9 x 1.5 cm subsolid nodule in the posterior left upper lobe but six-month follow-up noncontrast chest CT recommended to evaluate for possible slow growing brochealveolar carcinoma. No other lesions suspicious for primary malignancy or metastatic disease in the neck, chest, abdomen or pelvis. Monitor for now. (7) Pulmonary embolism: Code(s): I26.99 - Other pulmonary embolism without acute cor pulmonale Status: Chronic Assessment and Plan: H/O DVT and PE. Continue Eliquis (8) Chronic GERD: Code(s): K21.9 - Gastro-esophageal reflux disease without esophagitis Status: Chronic Assessment and Plan: Continue with PPI (9) Chronic respiratory failure with hypoxia: Code(s): J96.11 - Chronic respiratory failure with hypoxia Status: Chronic Assessment and Plan: Chronic, likely secondary to pulmonary hypertension with PAP 56 mmHg Continue home oxygen at 2 L during the day and 3 L at night (10) Congestive heart failure: Qualifiers: Heart failure chronicity: chronic Heart failure type: right-sided Qualified Code(s): I50.812 - Chronic right heart failure Code(s): I50.9 - Heart failure, unspecified Status: Acute Assessment and Plan: Chronic, right heart failure, not in acute exace
--- NOTE | 2022-11-05 10:28 | PCOTNOTE ---
Addendum entered by JUAN Pritchard 11/05/22 15:23: Patient refused to participate with any activity. Patient stated, I'm exhausted, I need sleep, I had a very long night . Original Note: Attempted to see Patient for OT treatment session at this time
--- NOTE | 2022-11-05 13:05 | PM.DS ---
DS: Admitting Diagnosis Discharge Date 11/05/22 Admitting Diagnosis gout DS: Discharge Diagnosis Discharge Diagnosis (1) Gout: Code(s): M10.9 - Gout, unspecified Status: Acute Assessment and Plan: Patient presented with increased redness and pain to left great toe distal and first proximal PIP site. She reportedly had a low grade temp prior to admission. Xray left foot unremarkable. She may or may not still be taking HCTZ, but risk factors include age and CKD. uric acid was 8.5. Clinical diagnosis rule score 10 suggesting high probability of gout for onset, age, single joint, first metatarsal involvement, h/o HTN and elevated uric acid>5.88 Treated with colchicine 1.2 mg in the ED and started on 0.6 mg BID. Monitor renal function. Will hold off on glucocorticoids due to concern for possible cellulitis and this may exacerbate. With h/o indomethacin due to CKD Consider joint aspiration to diagnose gout. consulted PT and OT for evaluation and childcare administrator for possible rehab facility. Repeat uric acid 2 weeks after flare resolves. (2) Cellulitis: Qualifiers: Site of cellulitis: extremity Code(s): L03.90 - Cellulitis, unspecified Status: Acute Assessment and Plan: Acute cellulitis appears unlikely due to high score for gout diagnosis rule . Stop Vancomycin and monitor off antibiotics. WBC 9. Lactic acid 0.7, however this was drawn after Vancomycin given and may cause mixed picture. procalcitonin 0.1 (3) Cerebral aneurysm: Code(s): I67.1 - Cerebral aneurysm, nonruptured Status: Chronic Assessment and Plan: To be aware. According to the daughter in-law and patient is being monitored outpatient [facility]. Is felt that the patient has too many risk factors to have surgery performed at this time. (4) Dyslipidemia: Onset Date: ~10/2014 Code(s): E78.5 - Hyperlipidemia, unspecified Status: Chronic Assessment and Plan: Chronic, Continue with Zocor (5) Chronic renal failure, stage 3 (moderate): Onset Date: ~08/2016 Code(s): N18.3 - Chronic kidney disease, stage 3 (moderate) Status: Acute Assessment and Plan: Chronic, stage 3-4, prior creatinine level 1.3 to 2.3 on previous visits; baseline eGFR 20-39 creatinine is 1.2, eGFR 47 and at baseline. Monitor on colchicine therapy. Avoid nephrotoxic medications (6) Lung nodule, multiple: Code(s): R91.8 - Other nonspecific abnormal finding of lung field Status: Acute Assessment and Plan: She is being monitored outpatient with CT scans. The patient did have a PET scan on 05/27/2022 showed no evident FDG uptake associated with a 1.9 x 1.5 cm subsolid nodule in the posterior left upper lobe but six-month follow-up noncontrast chest CT recommended to evaluate for possible slow growing brochealveolar carcinoma. No other lesions suspicious for primary malignancy or metastatic disease in the neck, chest, abdomen or pelvis. Monitor for now. (7) Pulmonary embolism: Code(s): I26.99 - Other pulmonary embolism without acute cor pulmonale Status: Chronic Assessment and Plan: H/O DVT and PE. Continue Eliquis (8) Chronic GERD: Code(s): K21.9 - Gastro-esophageal reflux disease without esophagitis Status: Chronic Assessment and Plan: Continue with PPI (9) Chronic respiratory failure with hypoxia: Code(s): J96.11 - Chronic respiratory failure with hypoxia Status: Chronic Assessment and Plan: Chronic, likely secondary to pulmonary hypertension with PAP 56 mmHg Continue home oxygen at 2 L during the day and 3 L at night (10) Congestive heart failure: Qualifiers: Heart failure chronicity: chronic Heart failure type: right-sided Qualified Code(s): I50.812 - Chronic right heart failure Code(s):
[2022-11-05 14:00] VITALS: BP 132/49; PULSE 59; RESP 22; TEMP 36.7; O2SAT 95
== END 2022-11-05 18:20 | disposition home health service (06) | DRG 554 ==
LOC: ANHED 12:53 → ANH3MEDSUR 16:41
PROVIDERS: Emergency Medicine; Nurse Practitioner; Nurse Practitioner Family; Admitting Provider Family Medicine; Emergency Provider Emergency Medicine; PCP Family Medicine; Visit Provider Internal Medicine Critical Care Medicine
DX: M10.9 Gout, unspecified (principal); J96.11 Chronic respiratory failure with hypoxia; I13.0 Hypertensive heart and chronic kidney disease with heart failure and stage 1 through stage 4 chronic kidney disease, or unspecified chronic kidney disease; I50.32 Chronic diastolic (congestive) heart failure; I67.1 Cerebral aneurysm, nonruptured; E11.22 Type 2 diabetes mellitus with diabetic chronic kidney disease; E78.5 Hyperlipidemia, unspecified; K21.9 Gastro-esophageal reflux disease without esophagitis; N18.30 Chronic kidney disease, stage 3 unspecified; R91.8 Other nonspecific abnormal finding of lung field; Z90.710 Acquired absence of both cervix and uterus; Z20.822 Contact with and (suspected) exposure to COVID-19; Z90.49 Acquired absence of other specified parts of digestive tract; Z96.649 Presence of unspecified artificial hip joint; Z99.81 Dependence on supplemental oxygen; Z88.0 Allergy status to penicillin; Z86.718 Personal history of other venous thrombosis and embolism; Z86.711 Personal history of pulmonary embolism
CPT/HCPCS: 36415; 71046; 73630; 80053; 81001; 83036; 83605; 83735; 84145; 84550; 85025; 86140; 87636; 93005; 96374; 97161; 97165; 99285; A9270; G0378; J3370

== ENCOUNTER 2022-11-13 15:22 | Inpatient (IN) | payer MEDICARE, SELFPAY ==
[2022-11-13] VITALS (7 sets, daily range): BP systolic 141–181; BP diastolic 51–75; PULSE 46–58; RESP 15–26; TEMP 36.2–36.3; O2SAT 97–100; BMI 33.0
--- NOTE | ~2022-11-13 | US_ITS ---
Limited Abdominal Sonogram: Real-time sonographic imaging of the right upper quadrant was performed. Clinical History: Epigastric pain Findings: The liver appears normal with no evidence of mass lesion or bile duct dilatation. Main por pierce vein demonstrates normal direction of flow. The gallbladder is absent, compatible prior cholecyst ectomy. The common bile duct measures 12 mm. The visualized pancreas, aorta, and IVC are unremarkabl e. Impression: Dilated common bile duct, possibly related to prior cholecystectomy. Reviewed, dictated and finalized at location M. ER/WAITRESS COUNTER Impression: Dilated common bile duct, possibly related to prior cholecystectomy.
--- NOTE | ~2022-11-13 | CT_ITS ---
EXAMINATION: CT chest abdomen pelvis wo con DATE: 11/13/2022 17:02 INDICATION: Abdominal pain. Weakness. TECHNIQUE: Computed tomography (CT) of the chest, abdomen, and pelvis was performed without intraveno us contrast. Automated exposure control and iterative reconstruction technique were employed. The dos e-length product was 1716.77 mGy-cm. COMPARISON: CT chest, abdomen, and pelvis 05/05/2022, PET/CT 05/27/22 FINDINGS: CHEST CT: There is mild atelectasis bilaterally. There is an 18 mm part solid nodule in left upper lobe. There is a 14 mm nodule in right lower lobe. No pleural effusion. There is a 10 mm nodule in the thyroid, l ikely not clinically significant. Cardiomegaly is noted. There are coronary artery calcifications. Th ere are calcifications of aortic valve. No pericardial effusion. There is severe thoracic spondylosis . ABDOMEN/PELVIS CT: Calcifications in the liver consistent with old granulomatous disease. The gallbladder is absent. The spleen, pancreas, and adrenal glands are normal. There are cysts in the kidneys measuring up to 27 m m on the left. There are no dilated loops of bowel. The appendix is not visualized. There are no path ologically enlarged lymph nodes. There is no free intraperitoneal fluid. There is a bipolar right hip hemiarthroplasty. There is severe lower lumbar spondylosis. IMPRESSION: 1. Two pulmonary nodules without change from 05/05/2022 and without increased activity on 05/27/2022, pr obably benign. Noncontrast chest CT is recommended in 6-12 months. Reviewed, dictated and finalized at location A. NESS DEVELOPMENT ASSOCIATE IMPRESSION: 1. Two pulmonary nodules without change from 05/05/2022 and without increased ac tivity on 05/27/2022, probably benign. Noncontrast chest CT is recommended in 6-1 2 months.
--- NOTE | ~2022-11-13 | CT_ITS ---
EXAMINATION: CT brain wo con DATE: 11/13/2022 17:00 INDICATION: Weakness. TECHNIQUE: Computed tomography (CT) of the head was performed without intravenous contrast. The mA wa s adjusted according to patient size. Iterative reconstruction technique was employed. The dose-lengt h product was 605.33 mGy-cm. COMPARISON: None FINDINGS: There are scattered areas of low attenuation in the cerebral white matter, which is within normal limits for the patient's age. There is no intracranial hemorrhage, acute infarction, or abnorm al intracranial mass lesion. The ventricles are normal in size. There is mucosal thickening in the pa ranasal sinuses. There is sclerosis of the cruz of the sphenoid sinuses, consistent with chronic sin usitis. There is a small right mastoid effusion. There are likely changes of left ocular lens replace ment surgery. IMPRESSION: 1. Normal aging brain. 2. Chronic sinusitis. Reviewed, dictated and finalized at location A. NATION SPINNER
--- NOTE | 2022-11-13 15:29 | ECG_ITS ---
Measurements Intervals [place] Rate: 50 P: 22 AK: 189 QRS: -20 QRSD: 165 T: -20 QT: 509 QTc: 464 Interpretive Statements SINUS BRADYCARDIA RIGHT BUNDLE BRANCH BLOCK [120+ ms QRS DURATION, UPRIGHT V1, 40+ ms S IN I/aVL/V4/V5/V6] VOLTAGE CRITERIA FOR LVH [MEETS CRITERIA IN ONE OF: R(aVL), S(V1), R(V5), R(V5/V6)+S(V1)] COMPARED TO ECG 11/03/2022 12:28:06 NO SIGNIFICANT CHANGE Electronically Signed On 11-14-2022 15:05:15 SOUND TECHNICIAN SUPERVISOR by Juice Bernal M.D.
--- NOTE | 2022-11-13 15:36 | ED.WEAKNESS ---
HPI - Weakness General Chief complaint: Weakness Stated complaint: GEN WEAKNESS, LOW PULSE RATE Time Seen by Provider: 11/13/22 15:36 Source: patient and family Mode of arrival: EMS Limitations: clinical condition History of Present Illness HPI Narrative: Patient is an 87-year-old female with a history of hypertension, hyperlipidemia, acid reflux, gout, history of DVT and PE on chronic anticoagulation presenting to the emergency department for evaluation of generalized weakness, cough and upper abdominal pain. Patient family provide most of the history. At the time of assessment, patient is awake and alert to person, place. Patient's family feels she has increased weakness compared to baseline. She has been reporting upper abdominal pain despite being prescribed omeprazole by her primary care physician. Pain is aching in nature in the upper abdomen to which the patient does motion to the upper abdomen. No flank pain. Patient denies any chest pain but is reporting cough and generalized, nonfocal weakness. No fever, chills. Patient's family states that she was nauseated and vomited last week but no vomiting this week. Over the past 48 hours I do feel like her oral intake is actually improved from recently. Patient had a bowel movement with a thought was improving the abdominal pain. They do report runny stools and mostly liquid diet. Patient's left lower extremity rash, cellulitis, gout has improved. Patient was prescribed doxycycline with concern for pneumonia but patient's family thought this was making her feel ill thus they discontinued it. Patient reports productive cough without hemoptysis. She denies chest pain or pleuritic pain. Related Data Home Medications Medication Instructions Recorded Confirmed omeprazole 20 mg capsule,delayed 20 mg PO DAILY 11/05/21 11/03/22 release ergocalciferol (vitamin D2) 1,250 1,250 mcg PO WEEKLY 05/05/22 11/03/22 mcg (50,000 unit) capsule acetaminophen 500 mg capsule 500 mg PO BID 06/05/22 11/03/22 polyethylene glycol 3350 17 17 g PO DAILY 06/05/22 11/03/22 gram/dose oral powder (Miralax) Allergies Allergy/AdvReac Type Severity Reaction Status Date / Time morphine Allergy Unknown Unknown Verified 11/03/22 18:09 Penicillins Allergy Unknown UNKNOWN Verified 11/03/22 18:09 Sulfa (Sulfonamide Allergy Unknown Unknown Verified 11/03/22 18:09 Antibiotics) Review of Systems Review of Systems: CONSTITUTIONAL: Denies fever, chills, or sweats. EYES: Denies visual changes, redness, or discharge. ENT: Denies rhinorrhea, reports congestion CARDIOVASCULAR: Denies chest pain, palpitations, or edema. RESPIRATORY: Reports cough, reports shortness of breath with exertional activities GASTROINTESTINAL: Reports alcohol abdominal pain, vomiting has resolved, reports loose stools GENITOURINARY: Denies dysuria or hematuria. SKIN: Denies rash or itching. MUSCULOSKELETAL: Denies back pain, joint pain, or myalgia. NEUROLOGIC: Denies headache, numbness, reports generalized weakness PMF Past Medical History Medical History Cerebral aneurysm Chronic GERD Chronic renal failure, stage 3 (moderate) (~08/2016) Chronic respiratory failure with hypoxia 2 liters in the day and 3 at night CRF (chronic renal failure) Diabetes type 2, controlled DVT (deep venous thrombosis) Dyslipidemia (~10/2014) Hypertension Lung nodule, multiple Pulmonary embolism Surgical History Surgical History H/O hemorrhoidectomy H/O: hysterectomy History of appendectomy History of hip replacement History of tonsillectomy and adenoidectomy Status post cholecystectomy Family History Family History Mother Hypertension Cerebrovascular accident Sibling Breast cancer Other Family history of malignant neoplasm Social History Social History (Reviewed
[2022-11-13 16:22] LABS: Basophils Percent Auto 0.5 % (0.2-1.2); Eosinophils Absolute Auto 0.3 K/mm3 (0-0.3); Eosinophils Percent Auto 4.2 % (0-4.4); Hematocrit 33.6 % (37.0-47.0); Hemoglobin 10.9 g/dL (12.0-15.0); Immature Granulocyte Absolute 0.04 K/mm3 (0.00-0.031); Immature Granulocyte Percent A 0.6 % (0-0.5); Lymphocytes Percent Auto 36.7 % (18.3-44.2); Mean Corpuscular HGB Conc 32.4 g/dl (32-36); Mean Corpuscular Hemoglobin 30.4 pg (26-34); Mean Corpuscular Volume 93.6 fl (80-100); Mean Platelet Volume 10.2 fl (7.4-10.4); Monocytes Absolute Auto 0.5 K/mm3 (0.1-0.6); Neutrophils Absolute Auto 3.1 K/mm3 (1.3-6.7); Platelet Count Result 249 k/mm3 (150-375); Red Blood Count 3.59 M/mm3 (4.2-5.4); White Blood Count 6.3 K/mm3 (4.5-10.0)
[2022-11-13 16:31] LABS: Lactic Acid Reflex 0.9 mmol/L (0.7-2.0)
[2022-11-13 16:34] LABS: INR 1.4; Partial Thromboplastin Time 35.8 SECONDS (22.3-36.8); Prothrombin Time 16.5 Seconds (11.1-14.7)
[2022-11-13] MEDS: ONDANSETRON INJ 4 MG/2 ML VIAL IV PUSH (16:36)
[2022-11-13] MEDS: SODIUM CHLORIDE 0.9% IV 500 ML 999 ML IV CONT (16:36)
[2022-11-13 16:39] LABS: Alanine Aminotransferase 21 U/L (6-35); Albumin Level 3.9 g/dL (3.5-5.1); Alkaline Phosphatase 130 U/L (38-126); Anion Gap 4 mmol/L (8-16); Aspartate Amino Transferase 43 U/L (14-36); Bilirubin,Total 0.4 mg/dL (0.2-1.3); Blood Urea Nitrogen 9 mg/dL (7-17); Calcium 9.5 mg/dL (8.4-10.2); Carbon Dioxide 32 mmol/L (22-30); Chloride 101 mmol/L (98-107); Estimated CRCL calculation 34 ml/min; Estimated Glomerular Filt Rate 39; Glucose 107 mg/dL (65-110); Potassium 3.4 mmol/L (3.4-5.0); Sodium 137 mmol/L (137-145)
[2022-11-13 16:51] LABS: NT Pro B Type Natriuretic Pept 315 pg/mL (19.9-100); Troponin I < 0.012 ng/mL (0.000-0.034)
[2022-11-13 17:33] LABS: Appearance Urine Clear (Clear); Bilirubin Urine Negative (Negative); Blood Urine Trace-intact (Negative); Color Urine Light Yellow (Yellow); Glucose Urine UA Negative (Negative); Ketones Urine Negative (Negative); Leukocyte Esterase Ur Negative LEU/UL (Negative); Nitrate Urine Negative (Negative); Protein Urine Negative (Negative); Specific Grav Ur <= 1.005 (1.001-1.035); Urobilinogen Urine 0.2 mg/dL (<2.0)
[2022-11-13 17:44] LABS: Bacteria Urine Trace /hpf; Mucus Urine Rare /lpf; RBC Urine 0-2 /hpf (0-2); Squamous Epithelial Cell Urine Rare /hpf (Few); WBC Urine 0-3 /hpf
[2022-11-13 17:45] LABS: Add Urine Microscopic? YES
--- NOTE | 2022-11-13 19:03 | PM.IMHP ---
H&P: HPI History of Present Illness Date/Time: 11/13/22 19:03 Chief Complaint: Weakness Narrative: This is an 87-year-old female patient who resides at home with a history of hypertension, hyperlipidemia history of DVT and PE on chronic anticoagulation. She does have home health care at home. It was noted that the patient's heart rate was in the 40s and 50s. Her primary care doctor was called and recommended that the patient come to the emergency room. Over the last 48 hours the patient's oral intake has decreased. The patient has been complaining of some epigastric discomfort. Patient was recently discharged from here with gout/cellulitis and was discharged home on 11/05/2022. That rash has improved. The patient was on oral doxycycline at home and was not able to take it due to diarrhea. Patient was asymptomatic with her bradycardia. She was awake and talking. Her H&H is 10.9 and 33.6 which was improved from her the 15th of this month. Creatinine is 1.3 at her baseline is somewhere between 1.1 and 2.3. Her troponins are nonreactive x2. BNP 315. UA was negative. CT abdomen pelvis was read as follows. Two pulmonary nodules without change from 05/05/2022 and without increased activity on 05/27/2022, probably benign. Noncontrast chest CT is recommended in 6-[address] was read as the following1. Normal aging brain. 2. Chronic sinusitis Cardiology has been consulted for asymptomatic bradycardia. The patient was given IV fluids, Zofran and Protonix. GI has been consulted due to patient's dyspepsia. The patient is being admitted to observation status on the date of service of 11/13/2022 Review of Systems Review of Systems: See HPI All systems reviewed & are unremarkable except as noted in HPI and below Constitutional: Constitutional: Reports as per HPI and Reports no additional constitutional complaints Eyes: Eyes: Reports as per HPI and Reports no additional eye complaints ENT: Reports system reviewed and no additional complaints, except as documented and Reports Normal hearing present Cardiovascular: Cardiovascular: Reports no additional cardiovascular complaints Respiratory: Respiratory: Reports no additional respiratory complaints and Reports no additional respiratory complaints Gastrointestinal: Gastrointestinal: Reports as per HPI and Reports no additional gastrointestinal complaints Musculoskeletal: Musculoskeletal: Reports no additional musculoskeletal complaints Integumentary/Breasts: Skin/Breast: Reports system reviewed and no additional complaints, except as docu and Reports as per HPI Neurologic: Reports system reviewed and no additional complaints, except as documented, Reports as per HPI and Reports Normal hearing present Psychiatric: Psychiatric: Reports no additional psychiatric complaints and Reports as per HPI Endocrine: Endocrine: Reports no additional endocrine complaints Hematologic/Lymphatic: Hematologic/Lymphatic: Reports no additional hematologic/lymphatic complaints Allergic/Immunologic: Allergic/Immunologic: Reports no additional allergic/immunologic complaints [facility] Past Medical History Medical History (Updated 11/14/22 @ 00:39 by Vannesa Vanessa NP) Cerebral aneurysm Chronic GERD Chronic renal failure, stage 3 (moderate) (~08/2016) Chronic respiratory failure with hypoxia 2 liters in the day and 3 at night CRF (chronic renal failure) Diabetes type 2, controlled DVT (deep venous thrombosis) Dyslipidemia (~10/2014) Hypertension Lung nodule, multiple Pulmonary embolism Surgical History Surgical History H/O hemorrhoidectomy H/O: hysterectomy History of appendectomy History of hip replacement History of tonsillectomy and adenoidectomy Status post cholecystectomy Family History Family History Mother Hypertension Cerebrovascular accident Sibling Breast cancer Oth
[2022-11-13] MEDS: PANTOPRAZOLE SODIUM IV 40 MG VIAL IV PUSH (19:36)
[2022-11-13 22:23] LABS: Troponin I 0.016 ng/mL (0.000-0.034)
[2022-11-14] VITALS (11 sets, daily range): BP systolic 103–152; BP diastolic 42–68; PULSE 42–57; RESP 16–21; TEMP 36.2–36.6; O2SAT 98–100
[2022-11-14] MEDS: APIXABAN 5 MG TABLET PO ×3 (02:14→20:58)
[2022-11-14 05:08] LABS: Basophils Percent Auto 0.4 % (0.2-1.2); Eosinophils Absolute Auto 0.2 K/mm3 (0-0.3); Eosinophils Percent Auto 3.2 % (0-4.4); Hematocrit 31.1 % (37.0-47.0); Immature Granulocyte Absolute 0.04 K/mm3 (0.00-0.031); Immature Granulocyte Percent A 0.5 % (0-0.5); Lymphocytes Absolute Auto 2.78 K/mm3 (0.9-3.2); Lymphocytes Percent Auto 38.1 % (18.3-44.2); Mean Corpuscular HGB Conc 32.2 g/dl (32-36); Mean Corpuscular Hemoglobin 29.9 pg (26-34); Mean Corpuscular Volume 93.1 fl (80-100); Mean Platelet Volume 10.6 fl (7.4-10.4); Monocytes Absolute Auto 0.5 K/mm3 (0.1-0.6); Neutrophils Absolute Auto 3.7 K/mm3 (1.3-6.7); Neutrophils Percent Auto 50.8 % (45.5-73.1); Platelet Count Result 232 k/mm3 (150-375); Red Blood Count 3.34 M/mm3 (4.2-5.4); Red Cell Distribution Width 12.8 % (11.5-14.5); White Blood Count 7.3 K/mm3 (4.5-10.0)
[2022-11-14 05:19] LABS: Alanine Aminotransferase 19 U/L (6-35); Albumin Level 3.3 g/dL (3.5-5.1); Alkaline Phosphatase 109 U/L (38-126); Anion Gap 6 mmol/L (8-16); Aspartate Amino Transferase 37 U/L (14-36); Bilirubin,Total 0.4 mg/dL (0.2-1.3); Blood Urea Nitrogen 10 mg/dL (7-17); Calcium 8.8 mg/dL (8.4-10.2); Carbon Dioxide 29 mmol/L (22-30); Chloride 104 mmol/L (98-107); Estimated CRCL calculation 33 ml/min; Estimated Glomerular Filt Rate 39; Glucose 97 mg/dL (65-110); Magnesium 1.6 mg/dL (1.6-2.3); Potassium 3.1 mmol/L (3.4-5.0); Sodium 139 mmol/L (137-145)
[2022-11-14] MEDS: polyethylene glycoL 3350 17 GM POWD.PACK PO (07:59)
[2022-11-14] MEDS: COLCHICINE 0.6 MG TABLET PO ×2 (07:59→16:16)
[2022-11-14] MEDS: TOLNAFTATE 1% POWDER 45 GM BTL 1 APPLIC TOPICAL ×3 (07:59→16:16)
[2022-11-14] MEDS: SIMVASTATIN 20 MG TABLET PO (07:59)
[2022-11-14] MEDS: POTASSIUM CHLORIDE 20 MEQ TABLET 40 MEQ PO (07:59)
[2022-11-14] MEDS: ACETAMINOPHEN 500 MG TABLET PO ×2 (07:59→16:16)
[2022-11-14 08:00] LABS: Lipase 28 U/L (23-300)
[2022-11-14 08:25] LABS: Glucose Point of Care 97 mg/dl (65-105)
--- NOTE | 2022-11-14 09:00 | P.PNIM_ITS ---
Progress Note: A&P Assessment and Plan (1) Bradycardia: Code(s): R00.1 - Bradycardia, unspecified Status: Acute Assessment and Plan: patient reports that her visiting nurse checked her vital signs and informed her her heart rate was slow and recommended she come to the ER for evaluation * patient has been monitored on telemetry with heart rate ranging in the 40s- 50s * EKG on presentation showed sinus bradycardia with a rate of 50 * patient is asymptomatic * TSH is within normal limits * appreciate cardiology consultation (2) Epigastric pain: Code(s): R10.13 - Epigastric pain Status: Acute Assessment and Plan: patient presented with complaints of left-sided epigastric pain. * CT of the abdomen/ pelvis on presentation was unremarkable with normal spleen, pancreas, adrenal glands * Abdominal ultrasound with absent gallbladder and mildly dilated common bile duct which is likely due to prior cholecystectomy. Pancreas unremarkable. * Lipase is within normal limits * May be related to gastritis versus peptic ulcer. Begin Protonix. GI consulted on admission * Not felt to be cardiac in nature. EKG unremarkable and troponins negative. * Symptoms have resolved (3) Chronic renal failure, stage 3 (moderate): Onset Date: ~08/2016 Code(s): N18.3 - Chronic kidney disease, stage 3 (moderate) Status: Chronic Assessment and Plan: renal function appears consistent with baseline * continue to monitor BMP (4) Lung nodule, multiple: Code(s): R91.8 - Other nonspecific abnormal finding of lung field Status: Chronic Assessment and Plan: She is being monitored outpatient with CT scans.? * The patient did have a PET scan on 05/27/2022 showed no evident FDG uptake associated with a 1.9 x 1.5 cm subsolid nodule in the posterior left upper lobe but six-month follow-up noncontrast chest CT recommended to evaluate for possible slow growing brochealveolar carcinoma. No other lesions suspicious for primary malignancy or metastatic disease in the neck, chest, abdomen or pelvis. * She has 3-6-month follow-up planned (5) Pulmonary embolism: Code(s): I26.99 - Other pulmonary embolism without acute cor pulmonale Status: Chronic Assessment and Plan: unchanged, no acute issues * continue Eliquis (6) Hypertension: Code(s): I10 - Essential (primary) hypertension Status: Chronic Assessment and Plan: blood pressures are stable. Last BP 138/42 * monitor BP trends * continue home lisinopril (7) Diabetes type 2, controlled: Code(s): E11.9 - Type 2 diabetes mellitus without complications Status: Acute Assessment and Plan: A1c is 5.8 * continue Accu-Cheks, sliding scale insulin, hypoglycemic protocol (8) Electrolyte abnormality: Code(s): E87.8 - Other disorders of electrolyte and fluid balance, not elsewhere classified Status: Acute Assessment and Plan: * potassium is 3.1. Will give 40 mg p.o. KCl * magnesium is 1.6. Will give 2 g IV magnesium sulfate * monitor electrolytes Subjective Date/time seen: 11/14/22 09:00 Interval history: Date of service: 11/14/2022 Cecy Cantu is an 87-year-old female with a history of CKD, chronic respiratory failure on supplemental oxygen, hypertension, PE and DVT on chronic anticoagulation, and several other medical problems with recent hospital admission for Gout who is seen in follow-up fo
--- NOTE | 2022-11-14 09:00 | PM.IMPN ---
Progress Note: A&P Assessment and Plan (1) Bradycardia: Code(s): R00.1 - Bradycardia, unspecified Status: Acute Assessment and Plan: patient reports that her visiting nurse checked her vital signs and informed her her heart rate was slow and recommended she come to the ER for evaluation patient has been monitored on telemetry with heart rate ranging in the 40s-50s EKG on presentation showed sinus bradycardia with a rate of 50 patient is asymptomatic TSH is within normal limits appreciate cardiology consultation (2) Epigastric pain: Code(s): R10.13 - Epigastric pain Status: Acute Assessment and Plan: patient presented with complaints of left-sided epigastric pain. CT of the abdomen/ pelvis on presentation was unremarkable with normal spleen, pancreas, adrenal glands Abdominal ultrasound with absent gallbladder and mildly dilated common bile duct which is likely due to prior cholecystectomy. Pancreas unremarkable. Lipase is within normal limits May be related to gastritis versus peptic ulcer. Begin Protonix. GI consulted on admission Not felt to be cardiac in nature. EKG unremarkable and troponins negative. Symptoms have resolved (3) Chronic renal failure, stage 3 (moderate): Onset Date: ~08/2016 Code(s): N18.3 - Chronic kidney disease, stage 3 (moderate) Status: Chronic Assessment and Plan: renal function appears consistent with baseline continue to monitor BMP (4) Lung nodule, multiple: Code(s): R91.8 - Other nonspecific abnormal finding of lung field Status: Chronic Assessment and Plan: She is being monitored outpatient with CT scans.? The patient did have a PET scan on 05/27/2022 showed no evident FDG uptake associated with a 1.9 x 1.5 cm subsolid nodule in the posterior left upper lobe but six-month follow-up noncontrast chest CT recommended to evaluate for possible slow growing brochealveolar carcinoma. No other lesions suspicious for primary malignancy or metastatic disease in the neck, chest, abdomen or pelvis. She has 3-6-month follow-up planned (5) Pulmonary embolism: Code(s): I26.99 - Other pulmonary embolism without acute cor pulmonale Status: Chronic Assessment and Plan: unchanged, no acute issues continue Eliquis (6) Hypertension: Code(s): I10 - Essential (primary) hypertension Status: Chronic Assessment and Plan: blood pressures are stable. Last BP 138/42 monitor BP trends continue home lisinopril (7) Diabetes type 2, controlled: Code(s): E11.9 - Type 2 diabetes mellitus without complications Status: Acute Assessment and Plan: A1c is 5.8 continue Accu-Cheks, sliding scale insulin, hypoglycemic protocol (8) Electrolyte abnormality: Code(s): E87.8 - Other disorders of electrolyte and fluid balance, not elsewhere classified Status: Acute Assessment and Plan: potassium is 3.1. Will give 40 mg p.o. KCl magnesium is 1.6. Will give 2 g IV magnesium sulfate monitor electrolytes Subjective Date/time seen: 11/14/22 09:00 Interval history: Date of service: 11/14/2022 Cecy Cantu is an 87-year-old female with a history of CKD, chronic respiratory failure on supplemental oxygen, hypertension, PE and DVT on chronic anticoagulation, and several other medical problems with recent hospital admission for Gout who is seen in follow-up for epigastric pain. She states that she had pain just under my left breast yesterday but this has resolved entirely. She has no chest pain. No palpitations. She does feel fatigued. Denies dizziness, lightheadedness, or weakness. She has been able to tolerate her diet and denies nausea or vomiting. She was told by her visiting nurse that her heart rate was low, however she did not notice any symptoms related to this. She denies shortness of breath, cough, o
--- NOTE | 2022-11-14 09:31 | PM.CNCAR ---
Assessment and Plan Assessment and plan (1) Bradycardia: Code(s): R00.1 - Bradycardia, unspecified Status: Acute Assessment and Plan: 87 year old female who came to the hospital at the direction of her home health nurse who was concerned about a slow heart rate of 44bpm during vital sign check. The patient is asymptomatic currently and denies any history of syncope, presyncope, dizziness. Her ECG demonstrates sinus bradycardia with a right bundle branch block which is chronic. At the time of my evaluation her telemetry had not demonstrated any significant bradycardia, pauses, or high degree block. She is hemodynamically stable and even hypertensive at times. She is not on any rate controlling medications at this time. Would recommend repleting her potassium since it is low at 3.1 and continuing to monitor on telemetry while she remains in the hospital. Otherwise, there are no specific cardiac recommendations to make. History of Present Illness History of Present Illness Consult date/time: 11/14/22 09:31 Requesting physician: Vannesa Vanessa NP Consult reason: Other (bradycardia) Reason For Visit: Generalized weakness, bradycardia Narrative: Ms. Cantu is an 87-year-old female with hypertension, hyperlipidemia, and PE on chronic anticoagulation. She tells me that her home health nurse was concerned about her heart rate and advised the patient to present to the emergency department. Patient is denying any symptoms currently. She states that she was in her normal state of health and her visiting nurse was taking routine vital signs and noted that her heart rate was in the 40s. She denies any cardiac history. She does not have any history of syncope or presyncope. She denies any palpitations, swelling, or chest pain. She is resting comfortably in her bed and is asking when she can go home. Review of Systems Constitutional: Constitutional: Denies chills, Denies fever(s), Denies headache(s) and Denies malaise Eyes: Eyes: Denies change in vision ENT: Reports Normal hearing present, Denies dizziness, Denies headache(s) and Denies hearing loss Cardiovascular: Cardiovascular: Denies chest pain, Denies chest pain at rest, Denies chest pain with activity, Denies syncope, Denies leg edema, Denies palpitations, Denies dyspnea and Denies dyspnea on exertion Respiratory: Respiratory: Denies cough, Denies dyspnea, Denies dyspnea on exertion and Denies wheezing Gastrointestinal: Gastrointestinal: Denies abdominal pain, Denies constipation and Denies diarrhea Genitourinary: Genitourinary: Denies hematuria and Denies dysuria Musculoskeletal: Musculoskeletal: Denies myalgias, Denies arthralgias and Denies muscle cramps Integumentary/Breasts: Skin/Breast: Denies wounds Neurologic: Reports Normal hearing present, Denies confusion, Denies dizziness, Denies syncope and Denies headache(s) Psychiatric: Psychiatric: Denies anxiety, Denies confusion and Denies depression Endocrine: Endocrine: Denies cold intolerance, Denies flushing, Denies heat intolerance and Denies palpitations Hematologic/Lymphatic: Hematologic/Lymphatic: Denies easy bleeding and Denies easy bruising Allergic/Immunologic: Allergic/Immunologic: Denies wheezing PMFSH Past Medical History Medical History Cerebral aneurysm Chronic GERD Chronic renal failure, stage 3 (moderate) (~08/2016) Chronic respiratory failure with hypoxia 2 liters in the day and 3 at night CRF (chronic renal failure) Diabetes type 2, controlled DVT (deep venous thrombosis) Dyslipidemia (~10/2014) Hypertension Lung nodule, multiple Pulmonary embolism Surgical History Surgical History H/O hemorrhoidectomy H/O: hysterectomy History of appendectomy History of hip replacement History of tonsillectomy and adenoidectomy Status post cholecystectomy Family History
[2022-11-14] MEDS: PANTOPRAZOLE 40 MG TABLET PO (09:47)
[2022-11-14] MEDS: MAGNESIUM SULF 2 GM/WATER 50ML 2 GM/50 ML BAG IVPB (09:47)
--- NOTE | 2022-11-14 11:06 | PCPTNOTE ---
Hospitalist called about bedrest orders. Per VALENTINA Steele pt can ambulate with assist and bedrest orders can be removed to participate in skilled therapy. RN aware.
[2022-11-14 11:58] LABS: Glucose Point of Care 104 mg/dl (65-105)
[2022-11-14 16:54] LABS: Glucose Point of Care 111 mg/dl (65-105)
[2022-11-14 22:00] LABS: Glucose Point of Care 141 mg/dl (65-105)
[2022-11-15] VITALS (11 sets, daily range): BP systolic 139–147; BP diastolic 45–60; PULSE 45–64; RESP 16–21; TEMP 36.1–36.9; O2SAT 97–100
[2022-11-15 05:40] LABS: Hematocrit 30.4 % (37.0-47.0); Hemoglobin 9.9 g/dL (12.0-15.0); Mean Corpuscular HGB Conc 32.6 g/dl (32-36); Mean Corpuscular Hemoglobin 29.9 pg (26-34); Mean Corpuscular Volume 91.8 fl (80-100); Mean Platelet Volume 10.5 fl (7.4-10.4); Platelet Count Result 226 k/mm3 (150-375); Red Blood Count 3.31 M/mm3 (4.2-5.4); Red Cell Distribution Width 12.8 % (11.5-14.5); White Blood Count 6.9 K/mm3 (4.5-10.0)
[2022-11-15 05:45] LABS: Anion Gap 2 mmol/L (8-16); Blood Urea Nitrogen 11 mg/dL (7-17); Calcium 9.2 mg/dL (8.4-10.2); Carbon Dioxide 30 mmol/L (22-30); Chloride 103 mmol/L (98-107); Estimated CRCL calculation 36 ml/min; Estimated Glomerular Filt Rate 43; Glucose 106 mg/dL (65-110); Magnesium 1.9 mg/dL (1.6-2.3); Potassium 3.4 mmol/L (3.4-5.0); Sodium 135 mmol/L (137-145)
[2022-11-15] MEDS: POTASSIUM CHLORIDE 20 MEQ TABLET 40 MEQ PO (08:18)
[2022-11-15] MEDS: PANTOPRAZOLE 40 MG TABLET PO (08:19)
[2022-11-15] MEDS: lisinopriL 20 MG TABLET 40 MG PO (08:19)
[2022-11-15] MEDS: APIXABAN 5 MG TABLET PO ×2 (08:19→20:43)
[2022-11-15] MEDS: ACETAMINOPHEN 500 MG TABLET PO ×2 (08:19→16:37)
[2022-11-15] MEDS: COLCHICINE 0.6 MG TABLET PO ×2 (08:19→16:37)
[2022-11-15] MEDS: SIMVASTATIN 20 MG TABLET PO (08:19)
[2022-11-15] MEDS: ERGOCALCIFEROL 50,000 UNITS CAPSULE 50000 UNITS PO (08:19)
[2022-11-15] MEDS: TOLNAFTATE 1% POWDER 45 GM BTL 1 APPLIC TOPICAL (08:20)
[2022-11-15 08:43] LABS: Glucose Point of Care 117 mg/dl (65-105)
--- NOTE | 2022-11-15 10:00 | P.PNIM_ITS ---
Progress Note: A&P Assessment and Plan (1) Bradycardia: Code(s): R00.1 - Bradycardia, unspecified Status: Acute Assessment and Plan: patient reports that her visiting nurse checked her vital signs and informed her her heart rate was slow and recommended she come to the ER for evaluation * patient has been monitored on telemetry with heart rate ranging in the 40s- 60s * EKG on presentation showed sinus bradycardia with a rate of 50 * patient remains asymptomatic * TSH is within normal limits * appreciate cardiology consultation (2) Epigastric pain: Code(s): R10.13 - Epigastric pain Status: Acute Assessment and Plan: patient presented with complaints of left-sided epigastric pain. * CT of the abdomen/ pelvis on presentation was unremarkable with normal spleen, pancreas, adrenal glands * Abdominal ultrasound with absent gallbladder and mildly dilated common bile duct which is likely due to prior cholecystectomy. Pancreas unremarkable. * Lipase is within normal limits * May be related to gastritis versus peptic ulcer. Begin Protonix. * Still awaiting GI for consult * Not felt to be cardiac in nature. EKG unremarkable and troponins negative. * Symptoms seem to be intermittent (3) Chronic renal failure, stage 3 (moderate): Onset Date: ~08/2016 Code(s): N18.3 - Chronic kidney disease, stage 3 (moderate) Status: Chronic Assessment and Plan: renal function appears consistent with baseline * Current BUN/Cr 07/22.20 * continue to monitor BMP (4) Lung nodule, multiple: Code(s): R91.8 - Other nonspecific abnormal finding of lung field Status: Chronic Assessment and Plan: She is being monitored outpatient with CT scans.? * The patient did have a PET scan on 05/27/2022 showed no evident FDG uptake associated with a 1.9 x 1.5 cm subsolid nodule in the posterior left upper lobe but six-month follow-up noncontrast chest CT recommended to evaluate for possible slow growing brochealveolar carcinoma. No other lesions suspicious for primary malignancy or metastatic disease in the neck, chest, abdomen or pelvis. * She has 3-6-month follow-up planned (5) Pulmonary embolism: Code(s): I26.99 - Other pulmonary embolism without acute cor pulmonale Status: Chronic Assessment and Plan: unchanged, no acute issues * continue Eliquis (6) Hypertension: Code(s): I10 - Essential (primary) hypertension Status: Chronic Assessment and Plan: blood pressures are stable. Last BP 147/49 * monitor BP trends * continue home lisinopril (7) Diabetes type 2, controlled: Code(s): E11.9 - Type 2 diabetes mellitus without complications Status: Acute Assessment and Plan: A1c is 5.8 * continue Accu-Cheks, sliding scale insulin, hypoglycemic protocol * Current glucose is 106 (8) Electrolyte abnormality: Code(s): E87.8 - Other disorders of electrolyte and fluid balance, not elsewhere classified Status: Acute Assessment and Plan: * potassium is 3.4. Will give 80 mg p.o. KCl * magnesium is 1.9 * monitor electrolytes Time Spent With Patient Time: 51 minutes Time with patient: Greater than 35 minutes Subjective Date/time seen: 11/15/22 1000 Interval history: 11/15/22999 Patient is still having some pain in her abdomen. She stated that it is a cramping type pain. She did have a large BM. She currently denies any
--- NOTE | 2022-11-15 10:00 | PM.IMPN ---
Progress Note: A&P Assessment and Plan (1) Bradycardia: Code(s): R00.1 - Bradycardia, unspecified Status: Acute Assessment and Plan: patient reports that her visiting nurse checked her vital signs and informed her her heart rate was slow and recommended she come to the ER for evaluation patient has been monitored on telemetry with heart rate ranging in the 40s-60s EKG on presentation showed sinus bradycardia with a rate of 50 patient remains asymptomatic TSH is within normal limits appreciate cardiology consultation (2) Epigastric pain: Code(s): R10.13 - Epigastric pain Status: Acute Assessment and Plan: patient presented with complaints of left-sided epigastric pain. CT of the abdomen/ pelvis on presentation was unremarkable with normal spleen, pancreas, adrenal glands Abdominal ultrasound with absent gallbladder and mildly dilated common bile duct which is likely due to prior cholecystectomy. Pancreas unremarkable. Lipase is within normal limits May be related to gastritis versus peptic ulcer. Begin Protonix. Still awaiting GI for consult Not felt to be cardiac in nature. EKG unremarkable and troponins negative. Symptoms seem to be intermittent (3) Chronic renal failure, stage 3 (moderate): Onset Date: ~08/2016 Code(s): N18.3 - Chronic kidney disease, stage 3 (moderate) Status: Chronic Assessment and Plan: renal function appears consistent with baseline Current BUN/Cr 07/22.20 continue to monitor BMP (4) Lung nodule, multiple: Code(s): R91.8 - Other nonspecific abnormal finding of lung field Status: Chronic Assessment and Plan: She is being monitored outpatient with CT scans.? The patient did have a PET scan on 05/27/2022 showed no evident FDG uptake associated with a 1.9 x 1.5 cm subsolid nodule in the posterior left upper lobe but six-month follow-up noncontrast chest CT recommended to evaluate for possible slow growing brochealveolar carcinoma. No other lesions suspicious for primary malignancy or metastatic disease in the neck, chest, abdomen or pelvis. She has 3-6-month follow-up planned (5) Pulmonary embolism: Code(s): I26.99 - Other pulmonary embolism without acute cor pulmonale Status: Chronic Assessment and Plan: unchanged, no acute issues continue Eliquis (6) Hypertension: Code(s): I10 - Essential (primary) hypertension Status: Chronic Assessment and Plan: blood pressures are stable. Last BP 147/49 monitor BP trends continue home lisinopril (7) Diabetes type 2, controlled: Code(s): E11.9 - Type 2 diabetes mellitus without complications Status: Acute Assessment and Plan: A1c is 5.8 continue Accu-Cheks, sliding scale insulin, hypoglycemic protocol Current glucose is 106 (8) Electrolyte abnormality: Code(s): E87.8 - Other disorders of electrolyte and fluid balance, not elsewhere classified Status: Acute Assessment and Plan: potassium is 3.4. Will give 80 mg p.o. KCl magnesium is 1.9 monitor electrolytes Time Spent With Patient Time: 51 minutes Time with patient: Greater than 35 minutes Subjective Date/time seen: 11/15/22 1000 Interval history: 11/15/22999 Patient is still having some pain in her abdomen. She stated that it is a cramping type pain. She did have a large BM. She currently denies any chest pain, nausea, vomiting, diarrhea, or constipation. She did state that she felt relatively weak, and also stated that she is very tired and worn out. 11/14/2022 Cecy Cantu is an 87-year-old female with a history of CKD, chronic respiratory failure on supplemental oxygen, hypertension, PE and DVT on chronic anticoagulation, and several other medical problems with recent hospital admission for Gout who is seen in follow-up for epigastric pain. She states that she
[2022-11-15] MEDS: POTASSIUM CHLORIDE 20 MEQ PACKET (FOR LIQUID) 40 MEQ PO (10:13)
[2022-11-15 12:12] LABS: Glucose Point of Care 111 mg/dl (65-105)
--- NOTE | 2022-11-15 16:38 | WPDGICN ---
Assessment and Plan Assessment and plan (1) Epigastric pain: Code(s): R10.13 - Epigastric pain Status: Acute Assessment and Plan: pain is almost gone and doing better probably dyspepsia, CT scan without gi abnormalities continue protonix empirically conservative treatment (2) Bradycardia: Code(s): R00.1 - Bradycardia, unspecified Status: Acute Assessment and Plan: by cardiology (3) Hypertension: Code(s): I10 - Essential (primary) hypertension Status: Chronic (4) Dyspepsia: Code(s): R10.13 - Epigastric pain Status: Acute Assessment and Plan: on ppi now better and good appetite, no nausea (5) Chronic anticoagulation: Code(s): Z79.01 - care home (current) use of anticoagulants Status: Acute GI Consult Note Consult date/time: 11/15/22 16:38 Reason for consult: epigastric pain HPI: Cecy Cantu is a 87 year old female who resides at home with 2 daughters and has history of hypertension, hyperlipidemia, history of DVT and PE on chronic anticoagulation.? She came after home health care staff noted that her heart rate was in 40-50's and admitted to the hospital, also evaluated by cardiology. She also has been complaining of epigastric pain with radiation to luq for a week, denies nausea, gerd or weight change. She has been under stress because son dealing with cancer. Previous hospitalization with gout/cellulitis and was discharged home on 11/05/2022, took briefly doxycycline. Blood work revealed creatinine is 1.3 near baseline, troponins are nonreactive x2.? BNP 315.? UA was negative.? CT abdomen pelvis chest reviewed and unremarkable, two pulmonary nodules without change from 05/05/2022 and without increased activity on 05/27/2022, probably benign. Pain is already better and she is eating, on iv protonix now. She says that had EGD years ago. Review of Systems Constitutional: Constitutional: Denies chills, Denies fever(s), Denies headache(s) and Denies malaise Eyes: Eyes: Denies change in vision ENT: Reports Normal hearing present Cardiovascular: Cardiovascular: Denies chest pain, Denies chest pain at rest, Denies chest pain with activity, Denies leg edema, Denies palpitations, Denies dyspnea and Denies dyspnea on exertion Respiratory: Respiratory: Denies cough, Denies dyspnea, Denies dyspnea on exertion and Denies wheezing Gastrointestinal: Gastrointestinal: Reports abdominal pain, Denies constipation and Denies diarrhea Genitourinary: Genitourinary: Denies hematuria and Denies dysuria Musculoskeletal: Musculoskeletal: Denies myalgias, Denies arthralgias and Denies muscle cramps Integumentary/Breasts: Skin/Breast: Denies wounds Neurologic: Reports Normal hearing present, Denies confusion, Denies dizziness, Denies syncope and Denies headache(s) Psychiatric: Psychiatric: Denies anxiety, Denies confusion and Denies depression Endocrine: Endocrine: Denies cold intolerance, Denies flushing and Denies heat intolerance Hematologic/Lymphatic: Hematologic/Lymphatic: Denies easy bleeding Allergic/Immunologic: Allergic/Immunologic: Denies wheezing PMFSH Past Medical History Medical History (Updated 11/15/22 @ 16:45 by Brenton Leyva MD) Cerebral aneurysm Chronic anticoagulation Chronic GERD Chronic renal failure, stage 3 (moderate) (~08/2016) Chronic respiratory failure with hypoxia 2 liters in the day and 3 at night CRF (chronic renal failure) Diabetes type 2, controlled DVT (deep venous thrombosis) Dyslipidemia (~10/2014) Dyspepsia Hypertension Lung nodule, multiple Pulmonary embolism Surgical History Surgical History H/O hemorrhoidectomy H/O: hysterectomy History of appendectomy History of hip replacement History of tonsillectomy and adenoidectomy Status post cholecystectomy Family History Family History
[2022-11-15 16:45] LABS: Glucose Point of Care 166 mg/dl (65-105)
[2022-11-15 21:00] LABS: Glucose Point of Care 123 mg/dl (65-105)
[2022-11-16] VITALS: PULSE 45
[2022-11-16 04:00] VITALS: PULSE 45
[2022-11-16 05:53] LABS: Basophils Percent Auto 0.6 % (0.2-1.2); Eosinophils Absolute Auto 0.2 K/mm3 (0-0.3); Eosinophils Percent Auto 3.2 % (0-4.4); Hematocrit 30.3 % (37.0-47.0); Hemoglobin 9.7 g/dL (12.0-15.0); Immature Granulocyte Absolute 0.04 K/mm3 (0.00-0.031); Immature Granulocyte Percent A 0.6 % (0-0.5); Lymphocytes Absolute Auto 2.87 K/mm3 (0.9-3.2); Lymphocytes Percent Auto 39.6 % (18.3-44.2); Mean Corpuscular Hemoglobin 29.8 pg (26-34); Mean Corpuscular Volume 92.9 fl (80-100); Mean Platelet Volume 10.7 fl (7.4-10.4); Monocytes Absolute Auto 0.7 K/mm3 (0.1-0.6); Neutrophils Absolute Auto 3.4 K/mm3 (1.3-6.7); Platelet Count Result 207 k/mm3 (150-375); Red Blood Count 3.26 M/mm3 (4.2-5.4); Red Cell Distribution Width 12.9 % (11.5-14.5); White Blood Count 7.3 K/mm3 (4.5-10.0)
[2022-11-16 06:00] VITALS: BP 139/41; PULSE 45; RESP 21; TEMP 36.1; O2SAT 100
[2022-11-16 06:02] LABS: Alanine Aminotransferase 19 U/L (6-35); Albumin Level 3.3 g/dL (3.5-5.1); Alkaline Phosphatase 98 U/L (38-126); Anion Gap 4 mmol/L (8-16); Aspartate Amino Transferase 40 U/L (14-36); Bilirubin,Total 0.4 mg/dL (0.2-1.3); Blood Urea Nitrogen 12 mg/dL (7-17); Calcium 9.4 mg/dL (8.4-10.2); Carbon Dioxide 29 mmol/L (22-30); Chloride 103 mmol/L (98-107); Estimated CRCL calculation 36 ml/min; Estimated Glomerular Filt Rate 43; Glucose 114 mg/dL (65-110); Magnesium 1.7 mg/dL (1.6-2.3); Potassium 3.8 mmol/L (3.4-5.0); Sodium 136 mmol/L (137-145)
[2022-11-16 08:17] LABS: Glucose Point of Care 110 mg/dl (65-105)
[2022-11-16] MEDS: MAGNESIUM SULF 4 GM/WATER100ML 4 GM/100 ML BAG IVPB (08:28)
[2022-11-16] MEDS: ACETAMINOPHEN 500 MG TABLET PO (08:30)
[2022-11-16] MEDS: COLCHICINE 0.6 MG TABLET PO (08:30)
[2022-11-16] MEDS: lisinopriL 20 MG TABLET 40 MG PO (08:30)
[2022-11-16] MEDS: APIXABAN 5 MG TABLET PO (08:30)
[2022-11-16] MEDS: SIMVASTATIN 20 MG TABLET PO (08:31)
[2022-11-16] MEDS: PANTOPRAZOLE 40 MG TABLET PO (08:31)
[2022-11-16] MEDS: TOLNAFTATE 1% POWDER 45 GM BTL 1 APPLIC TOPICAL (08:31)
--- NOTE | 2022-11-16 09:00 | P.DS_ITS ---
DS: Admitting Diagnosis Discharge Date 11/16/22 0900 Admitting Diagnosis Epigastric pain and bradycardia DS: Discharge Diagnosis Discharge Diagnosis (1) Bradycardia: Code(s): R00.1 - Bradycardia, unspecified Status: Acute Assessment and Plan: patient reports that her visiting nurse checked her vital signs and informed her her heart rate was slow and recommended she come to the ER for evaluation * patient has been monitored on telemetry with heart rate ranging in the 40s- 60s * EKG on presentation showed sinus bradycardia with a rate of 50 * patient remains asymptomatic * TSH is within normal limits * appreciate cardiology consultation (2) Epigastric pain: Code(s): R10.13 - Epigastric pain Status: Acute Assessment and Plan: patient presented with complaints of left-sided epigastric pain. * CT of the abdomen/ pelvis on presentation was unremarkable with normal spleen, pancreas, adrenal glands * Abdominal ultrasound with absent gallbladder and mildly dilated common bile duct which is likely due to prior cholecystectomy. Pancreas unremarkable. * Lipase is within normal limits * May be related to gastritis versus peptic ulcer. Begin Protonix. * Still awaiting GI for consult * Not felt to be cardiac in nature. EKG unremarkable and troponins negative. * Symptoms seem to be intermittent (3) Chronic renal failure, stage 3 (moderate): Onset Date: ~08/2016 Code(s): N18.3 - Chronic kidney disease, stage 3 (moderate) Status: Chronic Assessment and Plan: renal function appears consistent with baseline * Current BUN/Cr 08/21.20 * continue to monitor BMP (4) Lung nodule, multiple: Code(s): R91.8 - Other nonspecific abnormal finding of lung field Status: Chronic Assessment and Plan: She is being monitored outpatient with CT scans.? * The patient did have a PET scan on 05/27/2022 showed no evident FDG uptake associated with a 1.9 x 1.5 cm subsolid nodule in the posterior left upper lobe but six-month follow-up noncontrast chest CT recommended to evaluate for possible slow growing brochealveolar carcinoma. No other lesions suspicious for primary malignancy or metastatic disease in the neck, chest, abdomen or pelvis. * She has 3-6-month follow-up planned (5) Pulmonary embolism: Code(s): I26.99 - Other pulmonary embolism without acute cor pulmonale Status: Chronic Assessment and Plan: unchanged, no acute issues * continue Eliquis (6) Hypertension: Code(s): I10 - Essential (primary) hypertension Status: Chronic Assessment and Plan: blood pressures are stable. Last BP 139/41 * monitor BP trends * continue home lisinopril (7) Diabetes type 2, controlled: Code(s): E11.9 - Type 2 diabetes mellitus without complications Status: Acute Assessment and Plan: A1c is 5.8 * continue Accu-Cheks, sliding scale insulin, hypoglycemic protocol * Current glucose is 114 (8) Electrolyte abnormality: Code(s): E87.8 - Other disorders of electrolyte and fluid balance, not elsewhere classified Status: Acute Assessment and Plan: * potassium is 3.4. Will give 80 mg p.o. KCl * magnesium is 1.7 4gm IV * monitor electrolytes DS: Summary Hospital Course Hospital Course: Patient 87-year-old female with a past medical history of hypertension, hyperlipidemia, DVT, PVD who presented to the ED with complaints bradycardia.
--- NOTE | 2022-11-16 09:00 | PM.DS ---
DS: Admitting Diagnosis Discharge Date 11/16/22 0900 Admitting Diagnosis Epigastric pain and bradycardia DS: Discharge Diagnosis Discharge Diagnosis (1) Bradycardia: Code(s): R00.1 - Bradycardia, unspecified Status: Acute Assessment and Plan: patient reports that her visiting nurse checked her vital signs and informed her her heart rate was slow and recommended she come to the ER for evaluation patient has been monitored on telemetry with heart rate ranging in the 40s-60s EKG on presentation showed sinus bradycardia with a rate of 50 patient remains asymptomatic TSH is within normal limits appreciate cardiology consultation (2) Epigastric pain: Code(s): R10.13 - Epigastric pain Status: Acute Assessment and Plan: patient presented with complaints of left-sided epigastric pain. CT of the abdomen/ pelvis on presentation was unremarkable with normal spleen, pancreas, adrenal glands Abdominal ultrasound with absent gallbladder and mildly dilated common bile duct which is likely due to prior cholecystectomy. Pancreas unremarkable. Lipase is within normal limits May be related to gastritis versus peptic ulcer. Begin Protonix. Still awaiting GI for consult Not felt to be cardiac in nature. EKG unremarkable and troponins negative. Symptoms seem to be intermittent (3) Chronic renal failure, stage 3 (moderate): Onset Date: ~08/2016 Code(s): N18.3 - Chronic kidney disease, stage 3 (moderate) Status: Chronic Assessment and Plan: renal function appears consistent with baseline Current BUN/Cr 08/21.20 continue to monitor BMP (4) Lung nodule, multiple: Code(s): R91.8 - Other nonspecific abnormal finding of lung field Status: Chronic Assessment and Plan: She is being monitored outpatient with CT scans.? The patient did have a PET scan on 05/27/2022 showed no evident FDG uptake associated with a 1.9 x 1.5 cm subsolid nodule in the posterior left upper lobe but six-month follow-up noncontrast chest CT recommended to evaluate for possible slow growing brochealveolar carcinoma. No other lesions suspicious for primary malignancy or metastatic disease in the neck, chest, abdomen or pelvis. She has 3-6-month follow-up planned (5) Pulmonary embolism: Code(s): I26.99 - Other pulmonary embolism without acute cor pulmonale Status: Chronic Assessment and Plan: unchanged, no acute issues continue Eliquis (6) Hypertension: Code(s): I10 - Essential (primary) hypertension Status: Chronic Assessment and Plan: blood pressures are stable. Last BP 139/41 monitor BP trends continue home lisinopril (7) Diabetes type 2, controlled: Code(s): E11.9 - Type 2 diabetes mellitus without complications Status: Acute Assessment and Plan: A1c is 5.8 continue Accu-Cheks, sliding scale insulin, hypoglycemic protocol Current glucose is 114 (8) Electrolyte abnormality: Code(s): E87.8 - Other disorders of electrolyte and fluid balance, not elsewhere classified Status: Acute Assessment and Plan: potassium is 3.4. Will give 80 mg p.o. KCl magnesium is 1.7 4gm IV monitor electrolytes DS: Summary Hospital Course Hospital Course: Patient 87-year-old female with a past medical history of hypertension, hyperlipidemia, DVT, PVD who presented to the ED with complaints bradycardia. Upon arrival patient was noted to have a heart rate in the 40s and 50s. EKG did show sinus Santiago with heart rate in the 50s. Cardiology was consulted however patient is not on anything that would cause her heart rate to be low. Patient was also noted to have some epigastric pain and CT of the abdomen and was read with nodules however nothing acute in the abdomen. GI was consulted however pain has resolved and patient is able to eat. Patient was also started on Protonix w
[2022-11-16 11:44] LABS: Glucose Point of Care 119 mg/dl (65-105)
== END 2022-11-16 14:45 | disposition home health service (06) | DRG 309 ==
LOC: ANHED 20:05 → ANH2MED 21:56
PROVIDERS: Emergency Medicine; Nurse Practitioner; Physician Assistant; Admitting Provider Chiropractor; Emergency Provider Emergency Medicine; PCP Family Medicine; Visit Provider Nurse Practitioner
DX: R00.1 Bradycardia, unspecified (principal); I27.82 Chronic pulmonary embolism; J96.11 Chronic respiratory failure with hypoxia; R10.13 Epigastric pain; E11.22 Type 2 diabetes mellitus with diabetic chronic kidney disease; I12.9 Hypertensive chronic kidney disease with stage 1 through stage 4 chronic kidney disease, or unspecified chronic kidney disease; N18.30 Chronic kidney disease, stage 3 unspecified; E87.8 Other disorders of electrolyte and fluid balance, not elsewhere classified; R91.8 Other nonspecific abnormal finding of lung field; E78.5 Hyperlipidemia, unspecified; K21.9 Gastro-esophageal reflux disease without esophagitis; I73.9 Peripheral vascular disease, unspecified; Z96.649 Presence of unspecified artificial hip joint; Z66 Do not resuscitate; Z86.718 Personal history of other venous thrombosis and embolism; Z90.49 Acquired absence of other specified parts of digestive tract; Z90.710 Acquired absence of both cervix and uterus; Z79.01 Long term (current) use of anticoagulants
CPT/HCPCS: 36415; 51701; 70450; 71250; 74176; 76705; 80048; 80053; 81001; 82948; 83605; 83690; 83735; 83880; 84443; 84484; 85025; 85027; 85610; 85730; 93005; 96361; 96374; 96375; 97110; 97161; 97166; 97530; 97535; 99285; A9270; C9113; G0378; J2405; J3475; J7040

== ENCOUNTER 2023-03-23 14:48 | Outpatient (CLI) | payer MEDICARE, SELFPAY ==
[2023-03-23 19:30] LABS: Basophils Percent Auto 0.7 % (0.2-1.2); Eosinophils Absolute Auto 0.3 K/mm3 (0-0.3); Eosinophils Percent Auto 4.6 % (0-4.4); Hemoglobin 11.2 g/dL (12.0-15.0); Immature Granulocyte Absolute 0.02 K/mm3 (0.00-0.031); Immature Granulocyte Percent A 0.3 % (0-0.5); Lymphocytes Absolute Auto 2.53 K/mm3 (0.9-3.2); Mean Corpuscular HGB Conc 31.1 g/dl (32-36); Mean Corpuscular Hemoglobin 30.6 pg (26-34); Mean Corpuscular Volume 98.4 fl (80-100); Mean Platelet Volume 11.2 fl (7.4-10.4); Monocytes Absolute Auto 0.5 K/mm3 (0.1-0.6); Monocytes Percent Auto 8.1 % (2.6-8.5); Neutrophils Absolute Auto 2.6 K/mm3 (1.3-6.7); Neutrophils Percent Auto 43.3 % (45.5-73.1); Platelet Count Result 189 k/mm3 (150-375); Red Blood Count 3.66 M/mm3 (4.2-5.4); Red Cell Distribution Width 12.9 % (11.5-14.5); White Blood Count 5.9 K/mm3 (4.5-10.0)
[2023-03-23 19:55] LABS: Vitamin D 25 Hydroxy 43.2 ng/mL
[2023-03-23 20:44] LABS: Anion Gap 2 mmol/L (8-16); Blood Urea Nitrogen 12 mg/dL (7-17); Calcium 10.1 mg/dL (8.4-10.2); Carbon Dioxide 33 mmol/L (22-30); Chloride 104 mmol/L (98-107); Cholesterol 140 mg/dL (0-200); Estimated Glomerular Filt Rate 39; Glucose 110 mg/dL (65-110); HDL Direct 48 mg/dL; Potassium 4.1 mmol/L (3.4-5.0); Sodium 139 mmol/L (137-145); Triglycerides 128 mg/dL (<150)
[2023-03-23 20:59] LABS: LDL Cholesterol Direct 50 mg/dL
== END 2023-03-23 14:49 | disposition home or self-care (01) ==
PROVIDERS: PCP Family Medicine; Visit Provider Nurse Practitioner Adult Health
DX: I10 Essential (primary) hypertension (principal); E55.9 Vitamin D deficiency, unspecified
CPT/HCPCS: 36415; 80048; 80061; 82306; 85025

== ENCOUNTER 2023-05-05 13:47 | Outpatient (CLI) | payer MEDICARE, SELFPAY ==
--- NOTE | ~2023-05-05 | CT_ITS ---
EXAMINATION: CT diagnostic chest wo con DATE: 05/05/2023 14:06 INDICATION: Lung nodules TECHNIQUE: Computed tomography (CT) of the chest was performed without intravenous contrast. The dose -length product (DLP) was 412.58 mGy-cm. Automated exposure control and iterative reconstruction tech Zipwhip were employed. COMPARISON: 11/13/2022, 05/05/2022 FINDINGS: There is a stable 14 mm nodule of the right lower lobe. There is also a stable 18 mm nodule of the left upper lobe. No new pulmonary nodules are identified. There is mild dependent atelectasis . No pleural effusion or pneumothorax. No pathologically enlarged thoracic lymph nodes are identified . The heart size is normal. There is calcified coronary artery atherosclerosis. There is enlargement of the main and central pulmonary arteries, consistent with pulmonary hypertension. There is severe t horacic spondylosis. IMPRESSION: 1. Stable pulmonary nodules, probably benign. Follow-up CT in 12 months is recommended. Reviewed, dictated and finalized at location L. IMPRESSION: 1. Stable pulmonary nodules, probably benign. Follow-up CT in 12 months is jeevan mmended.
== END 2023-05-05 13:48 | disposition home or self-care (01) ==
LOC: ANHIMG 13:48
PROVIDERS: PCP Family Medicine; Visit Provider Internal Medicine Pulmonary Disease
DX: R91.8 Other nonspecific abnormal finding of lung field (principal)
CPT/HCPCS: 71250

== ENCOUNTER 2023-08-03 14:08 | Outpatient (CLI) | payer MEDICARE, SELFPAY ==
[2023-08-03 19:28] LABS: Vitamin D 25 Hydroxy 54.8 ng/mL
[2023-08-03 19:37] LABS: Albumin Level 4.2 g/dL (3.5-5.1); Anion Gap 10 mmol/L (8-16); Blood Urea Nitrogen 16 mg/dL (7-17); Carbon Dioxide 30 mmol/L (22-30); Chloride 100 mmol/L (98-107); Estimated Glomerular Filt Rate 28; Glucose 122 mg/dL (65-110); Phosphorus 3.9 mg/dL (2.5-4.5); Potassium 3.6 mmol/L (3.4-5.0); Sodium 140 mmol/L (137-145)
[2023-08-03 19:40] LABS: Hematocrit 35.8 % (37.0-47.0); Hemoglobin 11.4 g/dL (12.0-15.0); Mean Corpuscular HGB Conc 31.8 g/dl (32-36); Mean Corpuscular Hemoglobin 31.1 pg (26-34); Mean Corpuscular Volume 97.8 fl (80-100); Mean Platelet Volume 10.6 fl (7.4-10.4); Parathyroid Intact 91.4 pg/mL (7.5-53.5); Platelet Count Result 207 k/mm3 (150-375); Red Blood Count 3.66 M/mm3 (4.2-5.4); Red Cell Distribution Width 13.2 % (11.5-14.5); White Blood Count 6.5 K/mm3 (4.5-10.0)
[2023-08-03 19:54] LABS: Total Protein Urine Random 11 mg/dL
[2023-08-03 19:58] LABS: Ur Ttl Prot Creatinine Ratio 0.61 mg/mg (0-0.20)
[2023-08-03 20:48] LABS: Creatinine Urine 18.2 mg/dL
[2023-08-03 20:54] LABS: Microalbumin Urine Random < 6.0 mg/L (0-16.7)
[2023-08-03 20:55] LABS: MALB Creatinine Ratio < 33.0 mg/g (0-30)
== END 2023-08-03 14:09 | disposition home or self-care (01) ==
PROVIDERS: PCP Family Medicine; Visit Provider Internal Medicine Nephrology
DX: K21.9 Gastro-esophageal reflux disease without esophagitis (principal); M19.93 Secondary osteoarthritis, unspecified site; E21.1 Secondary hyperparathyroidism, not elsewhere classified; I10 Essential (primary) hypertension; Z86.718 Personal history of other venous thrombosis and embolism; I26.94 Multiple subsegmental thrombotic pulmonary emboli without acute cor pulmonale; I27.20 Pulmonary hypertension, unspecified; R06.00 Dyspnea, unspecified; N18.30 Chronic kidney disease, stage 3 unspecified
CPT/HCPCS: 36415; 80069; 82043; 82306; 82570; 82728; 83735; 83970; 84156; 85027

== ENCOUNTER 2023-08-19 12:21 | Outpatient (CLI) | payer MEDICARE, SELFPAY ==
[2023-08-19 13:00] VITALS: PULSE 72; O2SAT 94
[2023-08-19 13:05] VITALS: PULSE 80; O2SAT 88
[2023-08-19 13:10] VITALS: PULSE 79; O2SAT 92
[2023-08-19 13:25] VITALS: PULSE 68; O2SAT 95
--- NOTE | 2023-08-19 14:41 | HOMEO2EVAL ---
Evaluation was performed at [facility] Home Oxygen Evaluation RC: Home Oxygen (O2) Evaluation Start: 08/19/23 14:36 Freq: Status: Active Protocol: RPE Activity Type Activity Date Activity User E-sign Co-sign Detail Recorded Client Recorded Date Recorded By Document 08/19/23 13:00 [email or web address] [email or web address] 08/19/23 14:41 DJO Document 08/19/23 13:05 [email or web address] [email or web address] 08/19/23 14:41 DJO Document 08/19/23 13:10 [email or web address] [email or web address] 08/19/23 14:41 DJO Document 08/19/23 13:25 [email or web address] [email or web address] 08/19/23 14:41 DJO 08/19/23 08/19/23 08/19/23 13:00 13:05 13:10 Home O2 Evaluation [Oxygen] -Test Phase Resting Exercise Exercise -Oxygen Delivery Room Air Room Air Nasal Cannula -Oxygen Flow Rate (L/min) 1 [Pulse Oximetry] -Pulse Oximetry (90-100 %) 94 88 L 92 [Pulse Rate] -Pulse Rate (60-100 beats/min) 72 80 79 [Evaluation] -Activity Tolerance Fair [Charges] -Treatment Charges O2 Evaluation - Outpatient 08/19/23 13:25 Home O2 Evaluation [Oxygen] -Test Phase Resting -Oxygen Delivery Room Air -Oxygen Flow Rate (L/min) [Pulse Oximetry] -Pulse Oximetry (90-100 %) 95 [Pulse Rate] -Pulse Rate (60-100 beats/min) 68 [Evaluation] -Activity Tolerance [Charges] -Treatment Charges
== END 2023-08-19 12:22 | disposition home or self-care (01) ==
LOC: ANHPFT 12:22
PROVIDERS: PCP Family Medicine; Visit Provider Internal Medicine Pulmonary Disease
DX: R09.02 Hypoxemia (principal)
CPT/HCPCS: 94618

== ENCOUNTER 2023-09-10 14:44 | Outpatient (CLI) | payer MEDICARE, SELFPAY ==
[2023-09-10 19:57] LABS: Alanine Aminotransferase 16 U/L (6-35); Albumin Level 4.2 g/dL (3.5-5.1); Alkaline Phosphatase 84 U/L (38-126); Anion Gap 6 mmol/L (8-16); Aspartate Amino Transferase 38 U/L (14-36); Blood Urea Nitrogen 21 mg/dL (7-17); Calcium 10.4 mg/dL (8.4-10.2); Carbon Dioxide 29 mmol/L (22-30); Chloride 103 mmol/L (98-107); Estimated Glomerular Filt Rate 27; Glucose 128 mg/dL (65-110); Magnesium 2.1 mg/dL (1.6-2.3); Potassium 4.1 mmol/L (3.4-5.0); Sodium 138 mmol/L (137-145)
[2023-09-10 20:03] LABS: Hematocrit 35.6 % (37.0-47.0); Hemoglobin 11.2 g/dL (12.0-15.0); Mean Corpuscular HGB Conc 31.5 g/dl (32-36); Mean Corpuscular Hemoglobin 30.9 pg (26-34); Mean Corpuscular Volume 98.1 fl (80-100); Mean Platelet Volume 10.8 fl (7.4-10.4); Platelet Count Result 222 k/mm3 (150-375); Red Blood Count 3.63 M/mm3 (4.2-5.4); White Blood Count 6.6 K/mm3 (4.5-10.0)
[2023-09-10 21:01] LABS: Vitamin D 25 Hydroxy 52.2 ng/mL
[2023-09-10 21:02] LABS: Parathyroid Intact 98.5 pg/mL (7.5-53.5)
== END 2023-09-10 14:45 | disposition home or self-care (01) ==
LOC: ANHBWCLAB 14:50
PROVIDERS: PCP Family Medicine; Visit Provider Internal Medicine Nephrology
DX: R06.00 Dyspnea, unspecified (principal); E78.00 Pure hypercholesterolemia, unspecified; I27.20 Pulmonary hypertension, unspecified; I12.9 Hypertensive chronic kidney disease with stage 1 through stage 4 chronic kidney disease, or unspecified chronic kidney disease; N18.30 Chronic kidney disease, stage 3 unspecified; I26.94 Multiple subsegmental thrombotic pulmonary emboli without acute cor pulmonale; E21.1 Secondary hyperparathyroidism, not elsewhere classified; Z86.718 Personal history of other venous thrombosis and embolism
CPT/HCPCS: 36415; 80053; 82306; 83735; 83970; 85027

== ENCOUNTER 2023-12-09 15:09 | Outpatient (CLI) | payer MEDICARE, SELFPAY ==
[2023-12-09 19:15] LABS: Hematocrit 34.1 % (37.0-47.0); Hemoglobin 10.8 g/dL (12.0-15.0); Mean Corpuscular HGB Conc 31.7 g/dl (32-36); Mean Corpuscular Hemoglobin 30.9 pg (26-34); Mean Corpuscular Volume 97.4 fl (80-100); Mean Platelet Volume 10.9 fl (7.4-10.4); Platelet Count Result 244 k/mm3 (150-375); White Blood Count 7.9 K/mm3 (4.5-10.0)
[2023-12-09 19:21] LABS: Albumin Level 4.2 g/dL (3.5-5.1); Anion Gap 7 mmol/L (8-16); Anion Gap 8 mmol/L (8-16); Blood Urea Nitrogen 24 mg/dL (7-17); Carbon Dioxide 27 mmol/L (22-30); Carbon Dioxide 28 mmol/L (22-30); Chloride 103 mmol/L (98-107); Estimated Glomerular Filt Rate 30; Glucose 90 mg/dL (65-110); Glucose 91 mg/dL (65-110); Magnesium 2.2 mg/dL (1.6-2.3); Phosphorus 3.7 mg/dL (2.5-4.5); Potassium 4.1 mmol/L (3.4-5.0); Potassium 4.2 mmol/L (3.4-5.0); Sodium 138 mmol/L (137-145)
[2023-12-09 19:39] LABS: Parathyroid Intact 113.7 pg/mL (7.5-53.5); Vitamin D 25 Hydroxy 72.7 ng/mL
[2023-12-11 14:37] LABS: Hemoglobin A1C 6.3 % (<5.7)
[2023-12-11 15:47] LABS: Iron 58 ug/dL (37-170)
[2023-12-11 15:57] LABS: Percent Iron Saturation 16 % (20-50)
== END 2023-12-09 15:10 | disposition home or self-care (01) ==
PROVIDERS: PCP Family Medicine; Visit Provider Internal Medicine Nephrology
DX: J96.11 Chronic respiratory failure with hypoxia (principal); E78.00 Pure hypercholesterolemia, unspecified; E11.9 Type 2 diabetes mellitus without complications; I12.9 Hypertensive chronic kidney disease with stage 1 through stage 4 chronic kidney disease, or unspecified chronic kidney disease; N18.30 Chronic kidney disease, stage 3 unspecified; I27.20 Pulmonary hypertension, unspecified; I26.94 Multiple subsegmental thrombotic pulmonary emboli without acute cor pulmonale; E21.1 Secondary hyperparathyroidism, not elsewhere classified; M19.93 Secondary osteoarthritis, unspecified site; K21.9 Gastro-esophageal reflux disease without esophagitis; E55.9 Vitamin D deficiency, unspecified; S31.809A Unspecified open wound of unspecified buttock, initial encounter; X58.XXXA Exposure to other specified factors, initial encounter; Z79.899 Other long term (current) drug therapy; Z86.718 Personal history of other venous thrombosis and embolism
CPT/HCPCS: 36415; 80048; 80069; 82306; 82728; 83036; 83540; 83550; 83735; 83970; 85027

== ENCOUNTER 2024-01-28 08:30 | Outpatient (CLI) | payer MEDICARE, SELFPAY ==
--- NOTE | 2024-02-09 17:19 | WPDSLEEPSTUD ---
Sleep Study Date of Study: 01/28/24 Ordering Provider: Juice Huertas MD Interpreting Physician: Chen Conroy DO Sleep Study Type: Split Polysomnogram Height: 1.52 m Weight: 136.078 kg Body Mass Index: 58.6 Neck Circumference (inches): 13 [place]: 5 Reason for Sleep Study Oxygen dependence Sleep History The patient is an 88-year-old female with oxygen dependence, cardiomyopathy, GERD, chronic respiratory failure with hypoxia, chronic renal failure, diabetes, dyslipidemia, hypertension, lung nodule and history of pulmonary embolism that had a sleep study ordered by her concrete boom operator for evaluation of sleep apnea. The patient denies awakening from sleep short of breath. she denies awakening at night with heartburn, belching or cough. She rarely snores and is never loud enough that others complain. She occasionally has trouble sleeping when she has a cold. She denies waking up gasping for air throughout the night. She denies having breathing problems at night observed by herself or others. He denies sweating excessively at night. She denies having heart palpitations or irregular heartbeats during the night. She occasionally falls asleep during the day but never while driving. She denies sleep paralysis, cataplexy and hypnagogic / hypnopompic hallucinations. She denies feeling afraid of going to sleep. She denies having nightmares. She occasionally remembers her dreams. She occasionally has thoughts racing through her mind. He rarely feels sad or depressed. She occasionally has anxiety. She occasionally has muscular tension. She rarely notices parts of her body jerk. She denies kicking during the night. She denies having crawling and aching feelings in her legs. She rarely has leg pain during the night. He denies grinding her teeth during sleep and denies awakening with morning jaw pain. She is rarely bothered by pain during the day and never awakened by pain during the night. She rarely wakes up feeling stiff in the morning. She occasionally wakes up with sore or achy muscles. She occasionally wakes up with pain in the neck, spine or other joints. She goes to bed between 1-3 a.m. on both weekdays and weekends. She is able to fall asleep within 15 minutes. She wakes up twice throughout the night to urinate and is able to fall back asleep within 5-8 minutes. She wakes up between 1-2 p.m. on both weekdays and weekends. She typically gets 9-11 hours of sleep per day. She currently lives with her 2 adult daughters. She denies consuming any caffeinated beverages within 2 hours of bedtime. She denies engaging in physical exercise before bedtime. She will read and watch television before falling asleep. She will take naps in the afternoon or the evening and they are refreshing. She consumes 1 cup of caffeinated beverage per day. She denies tobacco, alcohol and recreational drug use. [facility] Past Medical History Medical History Cerebral aneurysm Chronic anticoagulation Chronic GERD Chronic renal failure, stage 3 (moderate) (~08/2016) Chronic respiratory failure with hypoxia 2 liters in the day and 3 at night CRF (chronic renal failure) Diabetes type 2, controlled DVT (deep venous thrombosis) Dyslipidemia (~10/2014) Dyspepsia Hypertension Lung nodule, multiple Pulmonary embolism Surgical History Surgical History H/O hemorrhoidectomy H/O: hysterectomy History of appendectomy History of hip replacement History of tonsillectomy and adenoidectomy Status post cholecystectomy Family History Family History Mother Hypertension Cerebrovascular accident Sibling Breast cancer Other Family history of malignant neoplasm Social History Social History Social History: The patient is
[2024-02-09 17:31] VITALS: BMI 58.6
== END 2024-01-29 06:50 | disposition home or self-care (01) ==
LOC: ANHCSM 08:33
PROVIDERS: PCP Family Medicine; Visit Provider Internal Medicine Pulmonary Disease
DX: G47.33 Obstructive sleep apnea (adult) (pediatric) (principal); G47.10 Hypersomnia, unspecified; I10 Essential (primary) hypertension
CPT/HCPCS: 95811

== ENCOUNTER 2024-03-10 16:12 | Outpatient (CLI) | payer MEDICARE, SELFPAY ==
[2024-03-10 19:53] LABS: Hematocrit 35.4 % (37.0-47.0); Hemoglobin 11.4 g/dL (12.0-15.0); Mean Corpuscular HGB Conc 32.2 g/dl (32-36); Mean Corpuscular Hemoglobin 31.2 pg (26-34); Mean Platelet Volume 10.7 fl (7.4-10.4); Platelet Count Result 205 k/mm3 (150-375); Red Blood Count 3.65 M/mm3 (4.2-5.4); Red Cell Distribution Width 13.4 % (11.5-14.5); White Blood Count 7.8 K/mm3 (4.5-10.0)
[2024-03-10 19:58] LABS: Albumin Level 4.4 g/dL (3.5-5.1); Anion Gap 7 mmol/L (4-12); Blood Urea Nitrogen 23 mg/dL (7-17); Calcium 10.1 mg/dL (8.4-10.2); Carbon Dioxide 30 mmol/L (22-30); Chloride 103 mmol/L (98-107); Estimated Glomerular Filt Rate 28; Glucose 113 mg/dL (65-110); Phosphorus 3.6 mg/dL (2.5-4.5); Potassium 4.4 mmol/L (3.4-5.0); Sodium 140 mmol/L (137-145)
[2024-03-10 20:00] LABS: NT Pro B Type Natriuretic Pept 396 pg/mL (19.9-100)
[2024-03-10 20:12] LABS: Parathyroid Intact 92.6 pg/mL (7.5-53.5)
[2024-03-10 20:39] LABS: Vitamin D 25 Hydroxy 54.2 ng/mL
== END 2024-03-10 16:13 | disposition home or self-care (01) ==
PROVIDERS: PCP Family Medicine; Visit Provider Internal Medicine Nephrology
DX: E21.1 Secondary hyperparathyroidism, not elsewhere classified (principal); R06.00 Dyspnea, unspecified; I12.9 Hypertensive chronic kidney disease with stage 1 through stage 4 chronic kidney disease, or unspecified chronic kidney disease; N18.30 Chronic kidney disease, stage 3 unspecified; I27.20 Pulmonary hypertension, unspecified; I26.94 Multiple subsegmental thrombotic pulmonary emboli without acute cor pulmonale; E78.00 Pure hypercholesterolemia, unspecified; M19.93 Secondary osteoarthritis, unspecified site; K21.9 Gastro-esophageal reflux disease without esophagitis; Z86.718 Personal history of other venous thrombosis and embolism
CPT/HCPCS: 36415; 80069; 82306; 82728; 83735; 83880; 83970; 85027

== ENCOUNTER 2024-05-13 13:22 | Outpatient (CLI) | payer MEDICARE, SELFPAY ==
--- NOTE | ~2024-05-13 | CT_ITS ---
EXAMINATION:CT diagnostic chest wo con DATE: 05/13/2024 13:37 INDICATION: Other nonspecific abnormal finding of lung field. TECHNIQUE: Computed tomography (CT) of the chest was performed without intravenous contrast. Automate d exposure control and iterative reconstruction technique were employed. The dose-length product (DLP ) was 658.10 mGy-cm. COMPARISON: Chest CT 05/05/2023, 05/05/22, PET/CT 05/27/22 FINDINGS: There is mild atelectasis bilaterally. There is mild scarring in paraspinal right lower lob e. There is a 15 mm cavitary nodule in right lower lobe that measured 13 mm on 05/05/22. There is a 19 mm part solid nodule in perihilar left upper lobe, stable from 05/05/2022. No pleural effusion. The h eart size is normal. No pericardial effusion. Calcified right hilar and mediastinal lymph nodes are c onsistent with old granulomatous disease. There is a small sliding hiatal hernia. There are cysts in left kidney measuring up to 2.8 cm. There is severe cervical and thoracic spondylosis. Thoracic kypho sis is noted. There is an old healed fracture of the sternum. IMPRESSION: 1. 15 mm cavitary nodule in right lung lower lobe with mild increase in size from 13 mm on 05/05/2022. This finding may be granulomatous disease or low-grade neoplasm. 2. 19 mm part solid nodule in left lung upper lobe, stable from 05/05/2022, likely benign. Reviewed, dictated and finalized at location A. IMPRESSION: 1. 15 mm cavitary nodule in right lung lower lobe with mild increase in size fr om 13 mm on 05/05/2022. This finding may be granulomatous disease or low-grade n eoplasm. 2. 19 mm part solid nodule in left lung upper lobe, stable from 05/05/2022, like ly benign.
== END 2024-05-13 13:23 | disposition home or self-care (01) ==
PROVIDERS: PCP Family Medicine; Visit Provider Internal Medicine Pulmonary Disease
DX: R91.8 Other nonspecific abnormal finding of lung field (principal); R91.1 Solitary pulmonary nodule
CPT/HCPCS: 71250

== ENCOUNTER 2024-05-18 13:17 | Outpatient (CLI) | payer MEDICARE, SELFPAY ==
[2024-05-18 19:07] LABS: Hematocrit 35.3 % (37.0-47.0); Hemoglobin 11.4 g/dL (12.0-15.0); Mean Corpuscular HGB Conc 32.3 g/dl (32-36); Mean Corpuscular Hemoglobin 31.2 pg (26-34); Mean Corpuscular Volume 96.7 fl (80-100); Mean Platelet Volume 10.9 fl (7.4-10.4); Platelet Count Result 209 k/mm3 (150-375); Red Blood Count 3.65 M/mm3 (4.2-5.4); Red Cell Distribution Width 12.8 % (11.5-14.5); White Blood Count 7.2 K/mm3 (4.5-10.0)
[2024-05-18 19:47] LABS: Parathyroid Intact 90.2 pg/mL (14.5-75.2)
[2024-05-18 20:18] LABS: Vitamin D 25 Hydroxy 51.1 ng/mL
[2024-05-18 20:21] LABS: Anion Gap 9 mmol/L (4-12); Blood Urea Nitrogen 22 mg/dL (7-17); Calcium 9.9 mg/dL (8.4-10.2); Carbon Dioxide 28 mmol/L (22-30); Chloride 98 mmol/L (98-107); Estimated Glomerular Filt Rate 28; Glucose 109 mg/dL (65-110); Phosphorus 3.7 mg/dL (2.5-4.5); Potassium 4.1 mmol/L (3.4-5.0); Sodium 135 mmol/L (137-145)
[2024-05-18 20:25] LABS: NT Pro B Type Natriuretic Pept 245 pg/mL (19.9-100)
== END 2024-05-18 13:18 | disposition home or self-care (01) ==
PROVIDERS: PCP Family Medicine; Visit Provider Internal Medicine Nephrology
DX: K21.9 Gastro-esophageal reflux disease without esophagitis (principal); I12.9 Hypertensive chronic kidney disease with stage 1 through stage 4 chronic kidney disease, or unspecified chronic kidney disease; N18.30 Chronic kidney disease, stage 3 unspecified; I27.20 Pulmonary hypertension, unspecified; I26.94 Multiple subsegmental thrombotic pulmonary emboli without acute cor pulmonale; E78.00 Pure hypercholesterolemia, unspecified; E21.1 Secondary hyperparathyroidism, not elsewhere classified; M19.93 Secondary osteoarthritis, unspecified site; Z86.718 Personal history of other venous thrombosis and embolism
CPT/HCPCS: 36415; 80069; 82306; 82728; 83735; 83880; 83970; 85027

== ENCOUNTER 2024-08-15 14:28 | Outpatient (CLI) | payer MEDICARE, SELFPAY ==
--- NOTE | ~2024-08-15 | CT_ITS ---
EXAMINATION:CT diagnostic chest wo con DATE: 08/15/2024 14:58 INDICATION: Other nonspecific abnormal findings of lung field. TECHNIQUE: Computed tomography (CT) of the chest was performed without intravenous contrast. Automate d exposure control and iterative reconstruction technique were employed. The dose-length product (DLP ) was 289.63 mGy-cm. COMPARISON: Chest CT 05/13/2024, 05/05/22 FINDINGS: The lungs demonstrate mild atelectasis. There is a 1.8 cm cavitary nodule in right lower lo be, increased from 1.5 cm on 05/13/2024. There is a 2.2 cm part solid nodule in left upper lobe, incre ased from 1.9 cm on 05/13/2024. No pleural effusion. The heart size is normal. There are coronary sunni ry calcifications. No pericardial effusion. Calcified right hilar and mediastinal lymph nodes are con sistent with old granulomatous disease. There is a 3.0 cm cyst in left kidney. There is kyphosis and severe spondylosis of thoracic spine. There is old healed fracture of the sternum. IMPRESSION: 1. Worsened 1.8 cm nodule in right lower lobe suspicious for primary bronchogenic carcinoma. Consider CT-guided biopsy. 2. Worsened 2.2 cm part-solid nodule in left upper lobe suspicious for primary bronchogenic carcinoma . Reviewed, dictated and finalized at location A. N DANCER IMPRESSION: 1. Worsened 1.8 cm nodule in right lower lobe suspicious for primary bronchogen ic carcinoma. Consider CT-guided biopsy. 2. Worsened 2.2 cm part-solid nodule in left upper lobe suspicious for primary bronchogenic carcinoma.
== END 2024-08-15 14:29 | disposition home or self-care (01) ==
PROVIDERS: PCP Family Medicine; Visit Provider Internal Medicine Pulmonary Disease
DX: R91.8 Other nonspecific abnormal finding of lung field (principal)
CPT/HCPCS: 71250

== ENCOUNTER 2024-11-14 14:33 | Outpatient (CLI) | payer MEDICARE, SELFPAY ==
--- OUTSIDE RECORDS SUMMARY | 2024-11-14 16:54 | XMS_ITS | Clinical Summary ---
Author Organization [facility] Facility Address [address] [address] Care Team Providers Care Reeler Operator Name Role Phone Gee Palacios MD Primary Care Provider [phone] Medications losartan (COZAAR) 100 MG tablet TAKE 1 TABLET BY MOUTH ONCE DAILY AT NIGHT 90 tablet 4 Active torsemide (DEMADEX) 10 MG tablet TAKE 1 TABLET BY MOUTH ONCE DAILY IN THE MORNING 90 tablet 4 Active spironolactone (ALDACTONE) 25 MG tablet TAKE 1/2 (ONE-HALF) TABLET BY MOUTH IN THE MORNING 45 tablet 5 Active ergocalciferol 1.25 MG (46647 UT) capsule Take 1 capsule by mouth once a week 12 capsule 5 Active ergocalciferol 1.25 MG (65453 UT) capsule Take 1 capsule by mouth once a week 12 capsule 4 11/07/19 25 Discontinued Encounters Date Type Department Care Team Description 11/06/2024 Refill [facility] [address] [phone] Donald Leon DO 10/05/2024 Refill [facility] [address] [phone] Donald Leon DO from Last 3 Months Social History Tobacco Use Types Packs/Day Years Used Date Smoking Tobacco: Never Alcohol Use Standard Drinks/Week Comments No 0 (1 standard drink = 0.6 oz pur e alcohol) Comments Unknown Sex and Gender Information Value Date Recorded Sex Assigned at Not on file Legal Sex Female 2:50 PM EDT Gender Identity Not on file Sexual Orientation Not on file Last Filed Vital Signs Vital Sign Reading Time Taken Comments Blood Pressure 108/60 05/24/2024 3:47 PM CDT Pulse 67 05/24/2024 3:47 PM CDT Temperature 36.7 C (98 F) 05/24/2024 3:47 PM CDT Respiratory Rate 18 05/24/2024 3:47 PM CDT Oxygen Saturation 99% 05/24/2024 3:47 PM CDT Inhaled Oxygen Concentration - - Weight 91.6 kg (202 lb) 05/24/2024 3:47 PM CDT Height 162.6 cm (5' 4 ) 07/08/2022 1:10 PM CDT Body Mass Index 34.67 07/08/2022 1:10 PM CDT Plan of Treatment Upcoming Encounters Date Type Department Care Team (Late st Contact Info) Description 11/15/2024 2:45 PM DIGITAL PRODUCT MANAGER Office Visit [facility], [facility] [address] [facility] [address] [place] [phone] Donald Leon DO [address] [facility] [address] [place] [address] Health Maintenance Due Date Last Done Comments Influenza Vaccine (#1) 2024 9, 07/27/2018, 06/29/2017, Additional history exists Pneumococcal Vaccine: 65+ Years Completed 06/30/2015, 09/21/2008 Hepatitis B Vaccine Aged Out No longe r eligible based on patient's age to complete this topic Insurance MEDICARE [facility] Care Teams Reeler Operator Relationship Specialty Start Date End Date Gee Palacios MD [address] [place] [id number] PCP - General Family Medicine 12/31/21
--- OUTSIDE RECORDS SUMMARY | 2024-11-14 16:54 | XMS_ITS | Continuity of Care Document ---
Author Organization [employer] [facility] Address [address] [place] [address] Phone Care Team Providers Care Research Specialist Name Role Phone Adrian LEOPOLDO, Katina Unavailable Unavailable Allergies, Adverse Reactions, Alerts Substance Reaction Status Criticality PENICILLIN Active No Information morphine Active No Information Sulfa (Sulfonamide Antibiotics) Active No Information Medications Medication Instructions Dosage Effective Dates (start - stop) Status Comments Eliquis 2.5 mg tablet take 1 tablet by oral route 2 times every day 2.5 MG - Active pantoprazole 40 mg tablet,delayed release take 1 tablet by oral route every 2 days 40 MG - Active torsemide 10 mg tablet take 1 tablet by oral route every day 10 MG - Active spironolactone 25 mg tablet take 1 tablet by oral route every day 25 MG - Active losartan 100 mg tablet take 1 tablet by oral route every day 100 MG - Active Refresh Classic (PF) 1.4 %-0.6 % eye drops in a dropperette - Active simvastatin 10 mg tablet take 1 tablet b y oral route every day in the evening 10 MG - Active B-12 Plus 5,000 mcg-100 mcg sublingual tablet take 1 by oral route every day 1 - Active Vitamin D3 1,000 unit capsule take 1 by oral route every day 1 - Active KETOROLAC 0.5% SOHAN INSTILL 1 DROP INTO OPERATED EYE THREE TIMES DAILY FOR 4 WEEKS - No Longer Active MOXIFLOXACIN 0.5% SOHAN INSTILL 1 DROP INTO OPERATED EYE 4 TIMES DAILY FOR 7 DAYS, THEN 1 DROP THREE TIMES DAILY UNTIL GONE - No Longer Active aspirin 81 mg tablet,delayed release take 1 tablet by oral route every day 81 MG - No Longer Active hydrochlorothiazide 12.5 mg capsule take 1 capsule by oral route every day 12.5 MG - No Longer Active lisinopril 20 mg tablet take 1 tablet by oral route every day 20 MG - No Longer Active omeprazole 20 mg capsule,delayed release take 1 capsule by oral route every day 30 minutes to 1 hour before a meal 20 MG - No Longer Active Procedures Procedure Date Fundus Photography W/ Report Refraction SCODI, Retina Eye Exam, New Patient No Charge Optomap Fundus Photos 025 No Charge Refraction No Charge Refraction Post-op Follow-up Visit Remove Cataract, Post Op Care 0 Remove Cataract, Insert Lens,Comanaged F IOLMaster-Professional No Charge Orbscan IOLMaster-Technical No Charge Refraction SCSCOTT, Retina Office/outpatient Visit, New Eye Exam, New Patient Advance Directives Directive Yes / No Effective Date File Name Other Directive No N/A N/A WARNING:The information contained in this section is historical and is provided for information only and does not constitute a legal document or any assurance that the information is still accurate. Please verify the information with the harris of the legal document before using it for clinical purposes. Encounters Encounter Description Practice Location Reason(s) For Visit Diagnoses Date Provider Providers Copied on Encounter [facility], [address], [place], [place], [address], [place] tel:[phone] SEC Fawad BARAKAT Professional Complete Exam (chief complaint) Anatomical narrow angle, right eyeAsteroid hyalosis of left eyeSubjective visual disturbanceAn terior basement membrane dystrophy (ABMD) of both eyesRetinal pigment epithelial detachment of left eyePseudophak ia, left eyeCombined forms of age-related cataract, right eye 5 Adrian OD Katina. [address] [place] [address], [address], [place], [place], [address], [place]. tel:[phone] Referring Provider: Isaac Infante OD, [facility] [address] [facility], [place], [address]. tel:[phone] [facility], [address] [place] [address] [address], [place], [place], [address], [place] tel:[phone] SEC Faw[place] Professional 2 week s/p PCIOL (chief complaint) Post op visit 0 Eyal Sidhu. [address] [facility], [facility] [address], [place], [place], [address], [place]. tel:[phone] Referring Provider: Isaac Infante OD, [facility] [address] [place], [address]. tel:[phone] Located within [facility], [address] [place] [address] [address], [place], [place], [address], [place] tel:[phone] [facility] YUVAL No Information 0 Eyal Sidhu. [address] [facility], [facility] [place], [address], [place]. tel:[phone] Located within [facility], [address] [place] [address] [address], [place], [place], [address], [place] tel:[phone] SEC [place] Professional 1 day s/p PCIOL (chief complaint) Post op visit 0 Tank Wills. [address] [facility], 6th Floor, [place], [address], [place]. tel:[phone] Referring Provider: Isaac Infante OD, [facility] [address] [place], [address]. tel:[phone] Located within [facility], [address] [place] [address] [address], [place], [place], [address], [place] [phone] [facility] No Information 0 Eyal Sidhu. [address] [facility], [address], [place], [place], [address], [place]. tel:[phone] Referring Provider: Nahum Tellez, [address] [facility] [address], [place], [address] . tel:[phone] Located within [facility], [address] [place] [address] [address], [place], [place], [address], [place] tel:[phone] SEC [place] Professional No Information 0 Eyal Sidhu. [address] [facility], [facility] [place], [address], [place]. tel:[phone] Referring Provider: Isaac Infante OD, [facility] [address] [facility], [place], [address]. tel:[phone] Office/outpa tient Visit, New Located within [facility], [address] [place] [address] [address], [place], [place], [address], [place] tel:[phone] SEC [place] Professional Cataract evaluation (chief complaint) Nexdtve age-related mclr degn, left eye, intermed dry stageCombined forms of age-related cataract, bilateralAste roid hyalosis of left eyeABMD (anterior basement membrane dystrophy)Lat jermaine degeneration of both retinasAnatom ical narrow angle, bilateral Dec-3 9 Eyal Sidhu. [address] [facility], [place], [address], [place]. tel:[phone] Referring Provider: Nahum Tellez, [address] [facility] [address], [place], [address] . tel:[phone] Located within [facility], [address] [place] [address] [address], [place], [place], [address], [place] tel:[phone] SEC [place] Professional No Information 9 Eyal Sidhu. [address] [facility], [address], [place], [place], [address], [place]. tel:[phone] [facility], [address], [place], [place], [address], [place] tel:[phone] SEC Fawad BARAKAT Professional No Information [address] Elina Rob. [address] [facility], [place], [place], [address], [place]. tel:[phone] Family History Family Member Type Diagnosis Age At Onset Problem (finding) Family history of Diabe kavitha mellitus Payers Payer name Insurance type Covered republican ID Authoriza tion(s) [place] [id number] [facility] [id number] Social History Type Description Quantity Date Captured Comments Alcohol Use Details No Caffeine Use Details Tobacco Use Status Current non-smoker Smoking Status Never smoker Non-Smoking Tobacco Use Details : No Details Available : No Details Available Sex Female Chief Complaint And Reason For Visit From encounter dated '10/14/2024 14:15'. Complete Exam (chief complaint). Description: The 89 year old patient presents for a complete exam ou. Patient states when looking at something there are missing letters/numbers OS x 3 weeks. Patientstates her vision in OS is blurry. 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 Patientwears OTC reading glasses. Reason For Referral Reason For Referral No Information Plan Of Treatment Date Type Action Status Appointment Cecy Cantu BOOKED Patient Education Cataracts: Care Instruc tions completed Patient Education Cataract Surgery: What to Expect at H~ completed History Of Present Illness Encounter Date Complaint History Of Prese nt Illness Complete Exam The 89 year old patient presents for a complete exam ou. Patient states when looking at something there are missing letters/numbers OS x 3 weeks. Patient states her vision in OS is blurry. 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 Patient wears OTC reading glasses. 2 week s/p PCIOL The 84 year old female presents for evaluation of 2 week s/p PCIOL in the left eye (11/16/19) and 90 day for OD. Patient states VA seems better with the left eye. Patient using p/o gtts. c/o with the right eye is difficulty watching television it's blurry and unable to the writing on the bottom of screen. Patient has difficulty reading small books as in medicine bottle labels. 1 day s/p PCIOL The 84 year old female presents for evaluation of 1 day s/p PCIOL in the left eye. Patient states she is doing good. Patient instructed to use Vig, Pred, and Ket as well as use of eye shield. Cataract evaluation The 84 year old female presents for a cataract evaluation ou per Luana lee. Patient is having a hard time reading small print x 1 year. Patient loves to read. Patient is having a hard time watching TV due to decreased vision and hard to recognizing peoples faces from across the street. 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
--- OUTSIDE RECORDS SUMMARY | 2024-11-14 16:54 | XMS_ITS | Clinical Summary ---
Author Organization [facility] Address [address] [facility] [address] [place] [address] Phone Care Team Providers Care Straddle Bug Driver Name Role Phone CelinaStone shen DPM Unavailable [phone] Jason Gomes DO Primary Care Provider [phone] Allergies Active Allergy Reactions Criticality Noted Date Comments Morphine Nausea 10/03/2015 Sulfa Antibiotics Unknown Medications butalbital-aspi qzb-hszozkpl-zl deine (ASCOMP-CODEINE ) 13-917-85-30 MG PO CAPS Reported on 02/27/2017 Active aspirin EC 81 MG Tablet Delayed Response Take 1 Tab by mouth daily. Active omeprazole (PRILOSEC) 20 MG CAPSULE DELAYED RELEASE Take 1 Cap by mouth daily. Active lisinopril (PRINIVIL, ZESTRIL) 20 MG Tablet TAKE ONE TABLET BY MOUTH ONCE DAILY. 90 Tab 3 04/23/2017 Active hydroCHLOROthia zide 25 MG Tablet TAKE 1 TABLET BY MOUTH ONCE DAILY 30 Tab 03/28/2019 Active simvastatin (ZOCOR) 20 MG Tablet TAKE 1 TABLET BY MOUTH ONCE DAILY 30 Tab 03/28/2019 Active Active Problems Problem Noted Date Diagnosed Date Renal insufficiency 03/26/2018 Right hand paresthesia 08/26/2017 Gastroesophageal reflux disease without esophagi tis 02/27/2017 Hyperglycemia 04/28/2016 Pain in toes of both feet 10/03/2015 Essential hypertension 10/03/2015 Hyperlipidemia 10/03/2015 Dermatophytosis of nail Immunizations Immunization Administration Dates Next Due Covid-19, Mrna, Lnp-s, Pf, 3 0 Mcg/0.3 Ml Dose (Howbuy) 12/25/2020,12/03/2020 Influenza Vaccine greater than 3 yrs 06/21/2014, 05/25/2012 Influenza Vaccine, Quadrivalent, PF 08/30/2019,1 09/26/2017,06/29/2017 PUR FLU HIGH DOSE (FLUZONE) 06/12/2016 Pneumococcal Vaccine - 13 Valent 06/30/2015 Pneumococcal Vaccine Adult - 23 Valent 9 Family History Medical History Relation Name Comments Cancer Brother Heart Attack Father Diabetes Mother Cancer Sister Relation Name Status Comments Brother Father Mother Sister Social History Tobacco Use Types Packs/Day Years Used Date Smoking Tobacco: Never Smokeless Tobacco: Never Tobacco Cessation:Counseling Given: Yes Alcohol Use Standard Drinks/Week Comments No 0 (1 standard drink = 0.6 oz pur e alcohol) Sexually Active Control Partners Comments Never Comments No Sex and Gender Information Value Date Recorded Sex Assigned at Not on file Legal Sex Female 8:01 PM CDT Gender Identity Not on file Sexual Orientation Not on file Last Filed Vital Signs Vital Sign Reading Time Taken Comments Blood Pressure 130/60 03/26/2018 9:15 AM CDT Pulse 85 03/26/2018 9:15 AM CDT Temperature 36.7 C (98 F) 03/26/2018 9:15 AM CDT Respiratory Rate 18 03/26/2018 9:15 AM CDT Oxygen Saturation 94% 03/26/2018 9:15 AM CDT Inhaled Oxygen Concentration - - Weight 100.2 kg (221 lb) 03/26/2018 9:15 AM CDT Height 165.1 cm (5' 5 ) 03/26/2018 9:15 AM CDT Body Mass Index 36.78 03/26/2018 9:15 AM CDT Plan of Treatment Health Maintenance Due Date Last Done Comments DEXA Bone Density 1935 Hepatitis C Virus (HCV) Screening 1935 TdaP Immunization 1935 Zoster Immunization (1 of 2) 1986 Respiratory Syncytial Virus (RSV) Immunization (Adult) (1 - 1-dose 75+ series) 2011 Influenza Immunization (#1) 05/22/202406/21, 08/30/2019, 07/27/2018, Additional history exists SARS-COV-2 Immunization ( season) 2024 08/23/2021, 12/25/2020, 12/03/2020 Pneumococcal Immunization (50+ years) Completed 06/30/2015, 09/21/2008 Pneumococcal Immunization Combined Discontinued 06/30/2015, 09/21/2008 Hepatitis B Immunization Aged Out No longer eligible based on patient's age to complete this topic Meningococcal Immunization (ACWY) Aged Out No longer eligible based on patient's age to complete this topic Rotavirus Immunization Aged Out No lo nger eligible based on patient's age to complete this topic Insurance MEDICARE [facility] Care Teams Straddle Bug Driver Relationship Specialty Start Date End Date Jason Gomes DO [address] [place] [address] PCP - General Family Medicine 04/21/19 Stone Patrick DPM Podiatry 02/08/16
--- OUTSIDE RECORDS SUMMARY | 2024-11-14 16:54 | XMS_ITS | Referral Summary ---
Author Organization [facility] Address [address] [place] [address] Care Team Providers Care Catalytic Converter Operator Name Role Phone Gee Palacios MD Primary Care Provider [phone] Allergies Active Allergy Reactions Criticality Noted Date Comments Morphine Nausea And Vomiting 06/24/2015 Sulfa (Sulfonamide Antibiotics) Sulfanilamide Medications acetaminophen (TYLENOL) 325 mg tablet Take 325 mg by mouth every 30 minutes as needed. Active aspirin 81 mg tablet Take 81 mg by mouth. Active cholecalciferol (VITAMIN D-3) 50,000 unit capsule TK 1 C PO WEEKLY FOR 8 WKS AND THEN 1 C ONCE A MONTH 1 8 Active hydroCHLOROthia zide (HYDRODIURIL) 25 mg tablet 0 8 Active lisinopril (PRINIVIL,ZESTR [place]) 20 mg tablet 0 8 Active omeprazole (PriLOSEC) 20 mg capsule Take by mouth. Acti ve simvastatin (ZOCOR) 20 mg tablet 0 8 Active AFLURIA QUAD 2198-0508, PF, 60 mcg (15 mcg x 4)/0.5 mL syringe ADM 0.5ML IM UTD 0 8 Active nystatin powder Apply topically 2 times daily. 5 Active butalbital-aspi cqi-njrorfke-lb deine (FIORINAL WITH CODEINE) per capsule Reported on 02/27/2017 Active ketorolac (ACULAR) 0.5 % ophthalmic solution 0 Active moxifloxacin (VIGAMOX) 0.5 % ophthalmic solution 0 Active prednisoLONE acetate (PRED FORTE) 1 % ophthalmic suspension 0 Active calcitRIOL (ROCALTROL) 0.25 mcg capsule Take 0.25 mcg by mouth daily 0 Active ergocalciferol (VITAMIN D) 50,000 unit capsule Take 50,000 Units by mouth once a week 2 Active Active Problems Problem Noted Date Diagnosed Date Primary osteoarthritis of left knee 06/24/2018 Social History Tobacco Use Types Packs/Day Years Used Date Smoking Tobacco: Never Smokeless Tobacco: Never Alcohol Use Standard Drinks/Week Comments No 0 (1 standard drink = 0.6 oz pur e alcohol) Comments Unknown Sex and Gender Information Value Date Recorded Sex Assigned at Not on file Legal Sex Female 1:38 AM DRAWBRIDGE TENDER Gender Identity Not on file Sexual Orientation Not on file Last Filed Vital Signs Vital Sign Reading Time Taken Comments Blood Pressure 145/87 12/30/2023 3:13 PM CDT Pulse 82 12/30/2023 3:13 PM CDT Temperature 36.3 C (97.4 F) 12/31/2020 3:04 PM CDT Respiratory Rate 14 04/12/2019 1:34 PM CDT Oxygen Saturation - - Inhaled Oxygen Concentration - - Weight 93 kg (205 lb) 12/30/2023 3:13 PM CDT Height 158.8 cm (5' 2.5 ) 12/30/2023 3:13 PM CDT Body Mass Index 36.9 12/30/2023 3:13 PM CDT Plan of Treatment Not on file Insurance MEDICARE [facility] MEDICARE Care Teams Catalytic Converter Operator Relationship Specialty Start Date End Date Gee Palacios MD PCP - General Family Practice 07/18/21
--- OUTSIDE RECORDS SUMMARY | 2024-11-14 16:54 | XMS_ITS | Clinical Summary ---
Author Organization [facility] Address [address] [place] [phone] Care Team Providers Care Public Relations Sales Marketing Name Role Phone Gee Palacios MD Primary Care Provider [phone] Allergies Active Allergy Reactions Criticality Noted Date [...] mg tablet 0 8 Active AFLURIA QUAD 1965-1241, PF, 60 mcg (15 mcg x 4)/0.5 mL syringe ADM 0.5ML IM UTD 0 8 Active nystatin powder Apply topically 2 times daily. 5 Active butalbital-aspi cjt-ckufclte-ww deine (FIORINAL WITH CODEINE) per capsule Reported [...] Date Primary osteoarthritis of left knee 06/24/2018 Surgical History Surgery Date Site/Laterality Comments APPENDECTOMY HYSTERECTOMY HIP SURGERY JOINT REPLACEMENT Medical History Medical History Date Comments Hx Other Medical stomach ulcers Hypertension Hypertension Peptic ulceration Cancer (CMS/HCC) (HCC) Hypercholesteremia Deep vein thrombosis (CMS/HCC) (HCC) Family History Medical History Relation Name Comments Cancer Other 1 Family history of Cancer; Diabetes Other 2 Family history of Diabetes mellitus; Heart disease Other 3 Family history of Heart disease; Hypertension Other 4 Family history of Hypertension; Relation Name Status Comments Other 1 Other 2 Other 3 Other 4 Social History Tobacco Use Types Packs/Day Years Used Date Smoking Tobacco: Never Smokeless Tobacco: Never Alcohol Use Standard Drinks/Week Comments No 0 (1 standard drink = 0.6 oz pur e alcohol) Comments Unknown Sex and Gender Information Value Date Recorded Sex Assigned at Not on file Legal Sex Female 1:38 AM TRASH COLLECTOR Gender Identity Not on file Sexual Orientation Not on file Obstetrics History Last Filed Vital Signs Vital Sign Reading [...] 12/30/2023 3:13 PM CDT Plan of Treatment Health Maintenance Due Date Last Done Comments Depression Screening 1936 Fall Risk Assessment 1936 DTaP/Tdap/Td Vaccine (1 - Tdap) 1947 Hepatitis B Screening 1954 Zoster Vaccine (1 of 2) 1986 Well Visit 65+ 2001 Covid-19 Vaccine (3 2023-2 5 season) 2024 12/25/2020, 12/03/2020 Influenza Vaccine (#1) 2024 9, 07/26/2018, 06/29/2017, Additional history exists Pneumococcal vaccine 65+ Completed 06/30/2015, 09/2008 Insurance MEDICARE [facility] MEDICARE Care Teams Public Relations Sales Marketing Relationship Specialty Start Date End Date Gee Palacios MD PCP - General Family Practice 07/18/21
--- OUTSIDE RECORDS SUMMARY | 2024-11-14 16:54 | XMS_ITS | Encounter Summary ---
Author Organization [facility] Address [address] [place] [phone] Phone Care Team Providers Care Taxi Cab Driver Name Role Phone Gee Palacios MD Primary Care Provider [phone] Reason for Visit * Reason Comments Med Refill Encounter Details Date Type Department Care Team (Late Contact Info) Description 03/24/2021 Refill [place] [facility], [facility] [address] [place] [phone] Donald Leon DO [address] [facility] [address] [place] [address] Social History Tobacco Use Types Packs/Day Years Used Date Smoking Tobacco: Never Alcohol Use Standard Drinks/Week Comments No 0 (1 standard drink = 0.6 oz pur e alcohol) Comments Unknown Sex and Gender Information Value Date Recorded Sex Assigned at Not on file Legal Sex Female 2:50 PM EDT Gender Identity Not on file Sexual Orientation Not on file documented as of this encounter Plan of Treatment Upcoming Encounters Date Type Department Care Team (Late Contact Info) Description 11/15/2024 2:45 PM INSTITUTION DIRECTOR Office Visit [place] [facility], [facility] [address] [facility] [address] [place] [address] Donald Leon DO [address] [facility] [address] [place] [address] documented as of this encounter Visit Diagnoses Not on filedocumented in this encounter Care Teams Taxi Cab Driver Relationship Specialty Start Date End Date Gee Palacios MD [address] [place] [address] PCP - General Family Medicine 12/31/21 documented as of this encounter
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
[2024-11-14 19:26] LABS: Hematocrit 34.4 % (37.0-47.0); Hemoglobin 11.1 g/dL (12.0-15.0); Mean Corpuscular HGB Conc 32.3 g/dl (32-36); Mean Corpuscular Hemoglobin 31.7 pg (26-34); Mean Corpuscular Volume 98.3 fl (80-100); Mean Platelet Volume 11.2 fl (7.4-10.4); Platelet Count Result 210 k/mm3 (150-375); Red Cell Distribution Width 12.7 % (11.5-14.5)
[2024-11-14 19:59] LABS: Alanine Aminotransferase 12 U/L (6-35); Albumin Level 4.1 g/dL (3.5-5.1); Alkaline Phosphatase 73 U/L (38-126); Anion Gap 10 mmol/L (4-12); Aspartate Amino Transferase 61 U/L (14-36); Bilirubin,Total 0.7 mg/dL (0.2-1.3); Blood Urea Nitrogen 28 mg/dL (7-17); Calcium 9.9 mg/dL (8.4-10.2); Carbon Dioxide 30 mmol/L (22-30); Chloride 101 mmol/L (98-107); Estimated Glomerular Filt Rate 30; Glucose 111 mg/dL (65-110); Potassium 4.2 mmol/L (3.4-5.0); Sodium 141 mmol/L (137-145)
[2024-11-14 20:00] LABS: Albumin Level 4.1 g/dL (3.5-5.1); Anion Gap 8 mmol/L (4-12); Blood Urea Nitrogen 28 mg/dL (7-17); Calcium 9.9 mg/dL (8.4-10.2); Carbon Dioxide 29 mmol/L (22-30); Chloride 102 mmol/L (98-107); Estimated Glomerular Filt Rate 30; Glucose 112 mg/dL (65-110); Magnesium 2.1 mg/dL (1.6-2.3); Phosphorus 3.7 mg/dL (2.5-4.5); Potassium 4.3 mmol/L (3.4-5.0); Sodium 139 mmol/L (137-145)
[2024-11-14 20:22] LABS: Parathyroid Intact 113.6 pg/mL (14.5-75.2)
[2024-11-14 21:39] LABS: Vitamin D 25 Hydroxy 86.3 ng/mL
[2024-11-14 21:43] LABS: Hemoglobin A1C 5.9 % (<5.7)
[2024-11-14 22:01] LABS: Iron 91 ug/dL (37-170)
[2024-11-14 22:10] LABS: Percent Iron Saturation 31 % (20-50)
== END 2024-11-14 14:34 | disposition home or self-care (01) ==
PROVIDERS: PCP Family Medicine; Visit Provider Internal Medicine Nephrology
DX: I12.9 Hypertensive chronic kidney disease with stage 1 through stage 4 chronic kidney disease, or unspecified chronic kidney disease (principal); E11.22 Type 2 diabetes mellitus with diabetic chronic kidney disease; N18.30 Chronic kidney disease, stage 3 unspecified; R06.00 Dyspnea, unspecified; I27.20 Pulmonary hypertension, unspecified; I26.94 Multiple subsegmental thrombotic pulmonary emboli without acute cor pulmonale; E78.00 Pure hypercholesterolemia, unspecified; E21.1 Secondary hyperparathyroidism, not elsewhere classified; M19.93 Secondary osteoarthritis, unspecified site; K21.9 Gastro-esophageal reflux disease without esophagitis; E55.9 Vitamin D deficiency, unspecified; R79.89 Other specified abnormal findings of blood chemistry; Z86.718 Personal history of other venous thrombosis and embolism
CPT/HCPCS: 36415; 80053; 80069; 82306; 82728; 83036; 83540; 83550; 83735; 83970; 85027

== ENCOUNTER 2025-01-16 08:32 | Outpatient (CLI) | payer MEDICARE, SELFPAY ==
--- OUTSIDE RECORDS SUMMARY | 2025-01-16 08:49 | XMS_ITS | Clinical Summary ---
Author Organization [facility] Address [address] [place] [address] Phone Care Team Providers Care Shoe Handler Name Role Phone Juice Schmitz MD Primary Care Provider [phone] Allergies Active Allergy Reactions Criticality Noted Date [...] Comments Blood Pressure 136/70 08/02/2015 11:14 AM MARKETING TECHNOLOGIST Pulse 71 08/02/2015 11:14 AM MARKETING TECHNOLOGIST Temperature 36.6 C (97.8 F) 07/14/2015 5:00 AM CDT Respiratory Rate 20 07/14/2015 5:00 AM CDT Oxygen Saturation 93% 07/14/2015 5:00 AM CDT Inhaled Oxygen Concentration - - Weight 91.6 kg (202 lb) 10/01/2017 10:51 AM MARKETING TECHNOLOGIST Height 167.6 cm (5' 6 ) 08/02/2015 11:14 AM MARKETING TECHNOLOGIST Body Mass Index 32.6 08/02/2015 11:14 AM MARKETING TECHNOLOGIST Plan of Treatment Health Maintenance Due Date Last Done Comments DTAP/TDAP/TD VACCINES (1 - Tdap) 1955 ZOSTER VACCINE (1 of 2) 1986 OSTEOPOROSIS SCREENING 2001 RSV VACCINE (60+ or ) (1 - 1-dose 75+ series) 2011 INFLUENZA VACCINE (#1) 2024 7, 06/12/2016, 05/31/2015, Additional history exists PNEUMOCOCCAL VACCINE 50+ YEARS Completed 06/30/2015 , 09/21/2008 Insurance MEDICARE PART A AND B [facility] SUPP MEDICARE PART A AND B [facility] SUPP Advance Directives For more information, please contact: [phone] Documents on File Type Date Recorded Patient Supervisor Stripping Expl anation Advance Directive Living Will 08/02/2015 [...] 8:09 PM 06/30/2015 5:00 PM Care Teams Shoe Handler Relationship Specialty Start Date End Date Juice Schmitz MD #[address] [address] PCP - General Internal Medicine 06/30/15
--- OUTSIDE RECORDS SUMMARY | 2025-01-16 08:49 | XMS_ITS | Encounter Summary ---
Author Organization [facility] , [facility] Address [address] [place] [address] Phone Care Team Providers Care Payroll Processor Name Role Phone Gee Palacios MD Primary Care Provider [phone] Reason for Visit * Reason Comments Med Refill Encounter Details Date Type Department Care Team (Late Contact Info) Description 03/24/2021 Refill [facility], [facility] [address] [address] 1 [place] [address] Donald Leon DO [address] [facility] 1 [place] [address] Social History Tobacco Use Types [...] Department Care Team (Late Contact Info) Description 01/17/2025 12:00 PM CDT Office Visit [facility], [facility] [address] [facility] [address] [place] [address] Donald Leon DO [address] [facility] 1 [place] [address] documented as of this encounter Visit Diagnoses Not on filedocumented in this encounter Care Teams Payroll Processor Relationship Specialty Start Date End Date Gee Palacios MD [address] [place] [address] PCP - General Family Medicine 12/31/21 documented as of this encounter
--- OUTSIDE RECORDS SUMMARY | 2025-01-16 08:49 | XMS_ITS | Clinical Summary ---
Author Organization [facility] Address [address] [facility] [address] [place] [address] Phone Care Team Providers Care Incinerator Attendant Name Role Phone CelinaStone shen DPM Unavailable [phone] Jason Gomes DO Primary Care Provider [phone] Allergies Active Allergy Reactions Criticality Noted Date Comments Morphine Nausea 10/03/2015 Sulfa Antibiotics Unknown Medications butalbital-aspi yju-dilvviej-lo deine (ASCOMP-CODEINE ) 20-841-23-30 MG PO CAPS Reported on 02/27/2017 Active [...] Lnp-s, Pf, 3 0 Mcg/0.3 Ml Dose ([employer]) 12/25/2020,12/03/2020 Influenza Vaccine greater than 3 yrs [...] Health Maintenance Due Date Last Done Comments Hepatitis C Virus (HCV) Screening 1936 TdaP [...] age to complete this topic Insurance MEDICARE [facility] Care Teams Incinerator Attendant Relationship Specialty Start Date End Date Jason Gomes DO [address] [place] [address] PCP - General Family Medicine 04/21/19 Stone Patrick DPM Podiatry 02/08/16
--- OUTSIDE RECORDS SUMMARY | 2025-01-16 08:49 | XMS_ITS | Referral Summary ---
Author Organization [facility] Address [address] [place] [address] Care Team Providers Care Dairy Supplies Sales Representative Name Role Phone Gee Palacios MD Primary Care Provider [phone] Allergies Active Allergy Reactions Criticality Noted Date [...] mg tablet 0 8 Active AFLURIA QUAD 0068-0680, PF, 60 mcg (15 mcg x 4)/0.5 mL syringe ADM 0.5ML IM UTD 0 8 Active nystatin powder Apply topically 2 times daily. 5 Active butalbital-aspi pcl-uvjpgcut-um deine (FIORINAL WITH CODEINE) per capsule Reported [...] on file Legal Sex Female 1:38 AM LEGAL ADVISER Gender Identity Not on file Sexual Orientation [...] of Treatment Not on file Insurance MEDICARE [facility] MEDICARE Care Teams Dairy Supplies Sales Representative Relationship Specialty Start Date End Date Gee Palacios MD PCP - General Family Practice 07/18/21
--- OUTSIDE RECORDS SUMMARY | 2025-01-16 08:49 | XMS_ITS | Clinical Summary ---
Author Organization [facility] Address [address] [place] [address] Care Team Providers Care Extract Puller Name Role Phone Gee Palacios MD Primary Care Provider [phone] Allergies Active Allergy Reactions Criticality Noted Date [...] mg tablet 0 8 Active AFLURIA QUAD 5127-0065, PF, 60 mcg (15 mcg x 4)/0.5 mL syringe ADM 0.5ML IM UTD 0 8 Active nystatin powder Apply topically 2 times daily. 5 Active butalbital-aspi kuv-xismwxsk-uo deine (FIORINAL WITH CODEINE) per capsule Reported [...] stomach ulcers Hypertension Hypertension Peptic ulceration Cancer (HCC) Hypercholesteremia Deep vein thrombosis (HCC) Family History Medical History Relation Name [...] on file Legal Sex Female 1:38 AM PARTS ANALYST Gender Identity Not on file Sexual Orientation [...] vaccine 65+ Completed 06/30/2015, 09/2008 Insurance MEDICARE [facility] MEDICARE Care Teams Extract Puller Relationship Specialty Start Date End Date Gee Palacios MD PCP - General Family Practice 07/18/21
--- OUTSIDE RECORDS SUMMARY | 2025-01-16 08:49 | XMS_ITS | Clinical Summary ---
Author Organization [facility] Address [address] [address] Care Team Providers Care Scholastic Aptitude Test Grader Name Role Phone Gee Palacios MD Primary Care Provider [phone] Medications ergocalciferol 1.25 MG (17118 UT) capsule Take 1 capsule by mouth once a week 12 capsule 11/07/2024 Active losartan (COZAAR) 100 MG tablet TAKE 1 TABLET BY MOUTH ONCE DAILY AT NIGHT 90 tablet 12/14/2024 Active Encounters Date Type Department Care Team Description 12/14/2024 Refill [facility], [facility] [address] [address] Donald Leon DO 12/12/2024 Refill [facility], [facility] [address] [address] Donald Leon DO 11/17/2024 Documentation Only [facility] [address] [place] [address] Donald Leon DO 11/16/2024 Refill [facility] [address] [place] [address] Kayley Altamirano CMA 11/15/2024 2:45 PM INSTRUCTOR BALLROOM DANCING Office Visit [facility], [facility] [address] [address] Donald Leon, Stage 3 chronic kidney disease, not otherwise specified (HCC) (Primary Dx); Dyspnea, not otherwise specified; Pulmonary hypertension, not otherwise specified (HCC); History of deep vein thrombosis; Hypertension; Pure hypercholesterolemia, not otherwise specified; Secondary hyperparathyroidism (HCC); Secondary osteoarthritis, not otherwise specified; Gastroesophageal reflux disease 11/15/2024 Documentation Only [address] [address] Donald Leon DO 11/15/2024 Documentation Only [address] [address] Donald Leon DO 11/06/2024 Refill [facility] [address] [facility] [address] [place] [address] Donald Leon DO from Last 3 Months [...] Sign Reading Time Taken Comments Blood Pressure 134/73 11/15/2024 3:15 PM INSTRUCTOR BALLROOM DANCING Pulse 54 11/15/2024 3:15 PM INSTRUCTOR BALLROOM DANCING Temperature 36.3 C (97.4 F) 11/15/2024 3:15 PM INSTRUCTOR BALLROOM DANCING Respiratory Rate 18 11/15/2024 3:15 PM INSTRUCTOR BALLROOM DANCING Oxygen Saturation 99% 11/15/2024 3:15 PM INSTRUCTOR BALLROOM DANCING Inhaled Oxygen Concentration - - Weight 91.6 kg (202 lb) 05/24/2024 3:47 PM CDT Height 162.6 cm (5' 4 ) 07/08/2022 1:10 PM CDT Body Mass Index 34.67 07/08/2022 1:10 PM CDT Plan of Treatment Upcoming Encounters Date Type Department Care Team (Late st Contact Info) Description 01/17/2025 12:00 PM CDT Office Visit [facility] [address] [facility] [address] [place] [address] Donald Leon DO [address] [place] [phone] Health Maintenance Due Date Last Done Comments Influenza Vaccine (Season Ended) 2025 08/30/2019, 07/27/2018, 06/29/2017, Additional history exists Pneumococcal Vaccine: 50+ Years Completed 06/30/2015, 09/21/2008 Hepatitis B Vaccine Aged Out No longe r eligible based on patient's age to complete this topic Insurance Medicare [facility] Care Teams Scholastic Aptitude Test Grader Relationship Specialty Start Date End Date Gee Palacios MD [address] [place] [id number] PCP - General Family Medicine 12/31/21
--- OUTSIDE RECORDS SUMMARY | 2025-01-16 08:49 | XMS_ITS | Encounter Summary ---
Author Organization [facility] Address [address] [place] [address] Phone Care Team Providers Care Malter Operator Name Role Phone Gee Palacios MD Primary Care Provider [phone] Reason for Visit * Reason Onset Date Comments Med Refill 11/16/2024 Encounter Details Date Type Department Care Team (Late Contact Info) Description 11/16/2024 Refill [facility], [facility] [address] [place] [address] Kayley Altamirano CMA [address] [facility] 1 [place] [address] Social History Tobacco Use Types [...] Description 01/17/2025 12:00 PM CDT Office Visit [facility] [employer], [facility] [address] [facility] [address] [place] [phone] Donald Leon DO [address] [facility] 1 [place] [address] documented as of this encounter Visit Diagnoses Not on filedocumented in this encounter Care Teams Malter Operator Relationship Specialty Start Date End Date Gee Palacios MD [address] [place] [address] PCP - General Family Medicine 12/31/21 documented as of this encounter
[2025-01-16 20:06] LABS: Hematocrit 36.9 % (37.0-47.0); Hemoglobin 11.4 g/dL (12.0-15.0); Mean Corpuscular HGB Conc 30.9 g/dl (32-36); Mean Corpuscular Hemoglobin 31.8 pg (26-34); Mean Corpuscular Volume 103.1 fl (80-100); Mean Platelet Volume 11.2 fl (7.4-10.4); Platelet Count Result 227 k/mm3 (150-375); Red Blood Count 3.58 M/mm3 (4.2-5.4); Red Cell Distribution Width 13.2 % (11.5-14.5); White Blood Count 9.4 K/mm3 (4.5-10.0)
[2025-01-16 20:23] LABS: Add Urine Microscopic? YES; Appearance Urine Cloudy (Clear); Bacteria Urine 4+ /hpf; Bilirubin Urine Negative (Negative); Blood Urine Trace (Negative); Color Urine Yellow (Yellow); Glucose Urine UA Negative (Negative); Ketones Urine Negative (Negative); Leukocyte Esterase Ur 3+ LEU/UL (Negative); Nitrate Urine Positive (Negative); Non Pathogenic Casts 0-2; Protein Urine Negative (Negative); RBC Urine 0-2 /hpf (0-2); Squamous Epithelial Cell Urine None Seen /hpf (Few); Urobilinogen Urine 0.2 mg/dL (<2.0); WBC Urine >100 /hpf (0-3)
[2025-01-16 21:22] LABS: Creatinine Urine 67.1 mg/dL
[2025-01-16 21:30] LABS: MALB Creatinine Ratio 43.5 mg/g (0-30); Microalbumin Urine Random 29.2 mg/L (0-16.7); Total Protein Urine Random 13 mg/dL
[2025-01-16 22:17] LABS: Creatinine Urine 66.9 mg/dL; Ur Ttl Prot Creatinine Ratio 0.19 mg/mg (0-0.20)
[2025-01-16 22:25] LABS: Parathyroid Intact 88.2 pg/mL (14.5-75.2)
[2025-01-16 22:30] LABS: Iron 81 ug/dL (37-170)
[2025-01-16 22:40] LABS: Albumin Level 4.2 g/dL (3.5-5.1); Anion Gap 9 mmol/L (4-12); Blood Urea Nitrogen 12 mg/dL (7-17); Calcium 9.5 mg/dL (8.4-10.2); Carbon Dioxide 26 mmol/L (22-30); Chloride 104 mmol/L (98-107); Estimated Glomerular Filt Rate 44; Glucose 104 mg/dL (65-110); Magnesium 2.1 mg/dL (1.6-2.3); Percent Iron Saturation 29 % (20-50); Phosphorus 3.5 mg/dL (2.5-4.5); Potassium 3.5 mmol/L (3.4-5.0); Sodium 139 mmol/L (137-145)
[2025-01-16 22:42] LABS: Transferrin 182 mg/dL (206-381); Vitamin D 25 Hydroxy 64.9 ng/mL
[2025-01-18 14:59] LABS: eGFR 24 (> OR = 60)
== END 2025-01-16 08:33 | disposition home or self-care (01) ==
PROVIDERS: PCP Family Medicine; Visit Provider Internal Medicine Nephrology
DX: I12.9 Hypertensive chronic kidney disease with stage 1 through stage 4 chronic kidney disease, or unspecified chronic kidney disease (principal); N18.30 Chronic kidney disease, stage 3 unspecified; R06.00 Dyspnea, unspecified; I27.20 Pulmonary hypertension, unspecified; E78.00 Pure hypercholesterolemia, unspecified; E21.1 Secondary hyperparathyroidism, not elsewhere classified; K21.9 Gastro-esophageal reflux disease without esophagitis; Z86.718 Personal history of other venous thrombosis and embolism
CPT/HCPCS: 36415; 80069; 81001; 82043; 82306; 82570; 82610; 82728; 83540; 83550; 83735; 83970; 84156; 84466; 85027

== ENCOUNTER 2025-03-07 11:15 | Emergency (ER) | payer MEDICARE, SELFPAY ==
--- NOTE | ~2025-03-07 | XR_ITS ---
XR chest 2V Ordering provider: Ludwig Gibson History: 89 years Female with . cough . History: November 03, 2022 FINDINGS: MEDIASTINUM: The cardiac silhouette is slightly enlarged. Prominent gerson. LUNGS: No effusions or pneumothorax. Minimal opacification in the left lung base is seen which may in dicate early pneumonia. Follow-up advised. OTHER: No free air under the diaphragm. IMPRESSION: Minimal opacification in the left lung base which may indicate early pneumonia. Follow-up advised. Reviewed, dictated and finalized at location A.
[2025-03-07 11:19] VITALS: BP 159/77; PULSE 65; RESP 22; TEMP 36.8; O2SAT 97
--- NOTE | 2025-03-07 11:23 | ECG_ITS ---
Test Date: 2025-03-07 11:26:32 Measurements Intervals [place] Rate: 58 P: 164 [place]: 213 QRS: -7 QRSD: 158 T: -13 QT: 487 QTc: 480 Interpretive Statements ELECTRONIC ATRIAL PACEMAKER RIGHT BUNDLE BRANCH BLOCK VOLTAGE CRITERIA FOR LVH BASELINE ARTIFACT- I, II, III, AVR, AVL, AVF, V1-V6 ABNORMAL ECG No previous ECG available for comparison Electronically Signed On 03-07-2025 12:01:53 CDT by Diego William D.O.
[2025-03-07 11:42] VITALS: RESP 20; O2SAT 99
[2025-03-07 11:54] LABS: Basophils Percent Auto 0.4 % (0.2-1.2); Eosinophils Absolute Auto 0.1 K/mm3 (0-0.3); Eosinophils Percent Auto 1.2 % (0-4.4); Hemoglobin 10.2 g/dL (12.0-15.0); Immature Granulocyte Absolute 0.01 K/mm3 (0.00-0.031); Immature Granulocyte Percent A 0.2 % (0-0.5); Immature Platelet Fraction Pct 3.3 % (0.9-11.2); Lymphocytes Absolute Auto 2.12 K/mm3 (0.9-3.2); Lymphocytes Percent Auto 40.8 % (18.3-44.2); Mean Corpuscular HGB Conc 31.9 g/dl (32-36); Mean Corpuscular Hemoglobin 31.1 pg (26-34); Mean Corpuscular Volume 97.6 fl (80-100); Mean Platelet Volume 10.3 fl (7.4-10.4); Monocytes Absolute Auto 0.5 K/mm3 (0.1-0.6); Monocytes Percent Auto 9.6 % (2.6-8.5); Neutrophils Absolute Auto 2.5 K/mm3 (1.3-6.7); Neutrophils Percent Auto 47.8 % (45.5-73.1); Platelet Count Result 144 k/mm3 (150-375); Red Blood Count 3.28 M/mm3 (4.2-5.4); Red Cell Distribution Width 12.6 % (11.5-14.5); White Blood Count 5.2 K/mm3 (4.5-10.0)
[2025-03-07 11:55] LABS: Alanine Aminotransferase 11 U/L (6-35); Albumin Level 3.6 g/dL (3.5-5.1); Alkaline Phosphatase 73 U/L (38-126); Anion Gap 6 mmol/L (4-12); Aspartate Amino Transferase 23 U/L (14-36); Bilirubin,Total 0.6 mg/dL (0.2-1.3); Blood Urea Nitrogen 11 mg/dL (7-17); Calcium 9.2 mg/dL (8.4-10.2); Carbon Dioxide 23 mmol/L (22-30); Chloride 108 mmol/L (98-107); Estimated CRCL calculation 29 ml/min; Estimated Glomerular Filt Rate 40; Glucose 100 mg/dL (65-110); Potassium 3.6 mmol/L (3.4-5.0); Sodium 137 mmol/L (137-145); Total Protein 6.5 g/dL (6.3-8.2)
--- NOTE | 2025-03-07 12:09 | ED.FEVER ---
HPI - Fever General Chief Complaint: Fever Stated Complaint: fever Time Seen by Provider: 03/07/25 11:38 Source: patient Mode of arrival: EMS Limitations: no limitations History of Present Illness HPI Narrative: Patient is an 89-year-old female, with PMH of HTN, DM, chronic hypoxic resp failure on 3L home O2, blood clots on Eliquis, who presents to the ED via EMS with report of a fever, cough. Family at bedside assisted providing information. Patient lives with her daughter at home. She reports she has had a productive cough over the past couple of days. She did have a fever up to 102? F yesterday. Reports mild headache, mild congestion. Denies feeling SOB or needing an increase in her home O2. Denies CP. Denies pain or swelling in legs. Family denies any confusion. States patient has otherwise been at her baseline. Related Data Home Medications ?Medication ?Instructions ?Recorded ?Confirmed ?Last Taken ?Type ergocalciferol (vitamin D2) 1,250 1,250 mcg PO WEEKLY 05/05/22 09/07/24 11/01/22 08:00 History mcg (50,000 unit) capsule acetaminophen 500 mg capsule 500 mg PO BID 06/05/22 09/07/24 11/03/22 08:00 History polyethylene glycol 3350 17 17 g PO DAILY 06/05/22 09/07/24 11/02/22 08:00 History gram/dose oral powder (Miralax) carboxymethylcellulose sodium 0.5 1 drp EACH EYE BID PRN 03/11/23 09/07/24 Unknown History % eye drops (Refresh Tears) losartan 100 mg tablet 100 mg PO DAILY 09/04/23 09/07/24 Unknown History mecobalamin (vitamin B12) 1,000 1,000 mcg PO DAILY 11/23/23 09/07/24 Unknown History mcg chewable tablet Hydrophilic wound dressing .Route 07/07/24 09/07/24 Unknown History Allergies Allergy/AdvReac Type Severity Reaction Status Date / Time morphine Allergy Unknown Unknown Verified 02/27/25 14:23 Penicillins Allergy Unknown UNKNOWN Verified 02/27/25 14:23 Sulfa (Sulfonamide Allergy Unknown Unknown Verified 02/27/25 14:23 Antibiotics) Review of Systems Review of Systems: All systems reviewed & are unremarkable except as noted in HPI. All systems reviewed & are unremarkable except as noted in HPI and below PMFSH Past Medical History Medical History Encounter for immunization Chronic anticoagulation Dyspepsia Cerebral aneurysm CRF (chronic renal failure) Chronic GERD Chronic respiratory failure with hypoxia 2 liters in the day and 3 at night DVT (deep venous thrombosis) Lung nodule, multiple Pulmonary embolism Hypertension Diabetes type 2, controlled Chronic renal failure, stage 3 (moderate) (~08/2016) Dyslipidemia (~10/2014) Surgical History Surgical History History of appendectomy History of tonsillectomy and adenoidectomy Status post cholecystectomy H/O: hysterectomy History of hip replacement H/O hemorrhoidectomy Family History Family History Mother Hypertension Cerebrovascular accident Sibling Breast cancer Other Family history of malignant neoplasm Social History Social History Social History: The patient is and has 4 children. Her daughter in-law braden is her poa. 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 Code status full code Smoking status: Never smoker Second hand tobacco smoke exposure: No Alcohol intake: never Substance use: never Do You Feel Safe in your Home?: Yes Lack of Transportation: No Lack of Food: Never True Current Housing: I Have Housing Concerned About Future Housing: No Difficulty Paying Gas/Electric Bills: No Difficulty Paying for Meds: No Currently Unemployed: No Education: High School Diploma/GED Difficulty w/ Childcare or Family Care: No Living arrangements: with family Spiritual care concerns: No Exam Narrative: GENERAL: Elderly, chronically ill appearing, obese with BMI of 30.2, non-toxic, in no acute distress. HEAD: Normocephalic, atraumatic. RESPIRATORY: Airway patent, respirations nonlabored. Clear to auscultation bilaterally, no rales, rhonchi, wheezing. CARDIOVASCULAR: Regular rate and rhythm without murmurs, rubs, or gallops. Peripheral pulses intact. MUSCULOSKELETAL: Moves all extremities. No gross deformities. No peripheral edema. No calf tenderness. SKIN: Warm, dry, normal color. NEURO: A&O X3. Speech clear. No ataxic movements. PSYCHIATRIC: Appropriate mood and affect. Normal interaction. Course Vital Signs Vital signs: Vital Signs Temperature 98.3 F 03/07/25 11:19 Pulse Rate 65 03/07/25 11:19 Respiratory Rate 22 H 03/07/25 11:19 Blood Pressure 159/77 H 03/07/25 11:19 Pulse Oximetry 97 03/07/25 11:19 Temperature 98.1 F 03/07/25 15:20 Pulse Rate 62 03/07/25 15:20 Respiratory Rate 18 03/07/25 15:20 Blood Pressure 132/71 03/07/25 15:20 Pulse Oximetry 95 03/07/25 15:20 Oxygen Delivery Nasal Cannula 03/07/25 11:42 Oxygen Flow Rate 3 03/07/25 11:42 MDM - Fever MDM Narrative Medical decision making narrative: Patient presented to ED with productive cough, fevers over the past couple of days. Vital signs are stable upon arrival. Patient is in no acute distress. Tolerating her home oxygen. Has not required increase in her oxygen. Denying chest pain or shortness of breath. Family reports she has otherwise been at her baseline. Laboratory studies without leukocytosis. Mild anemia, consistent with previous records. CMP is fairly unremarkable. Kidney function consistent with previous records. Viral swabs are negative. EKG without ischemic changes. RBBB. Again patient denying chest pain. Chest x-ray with early pneumonia of left lung base. Consistent with clinical picture. Will treat for this. Patient given dose of Rocephin and azithromycin in the ED. UA also somewhat abnormal, possible infection, patient denies urinary complaints. Sent for cx. No previous positive cultures to compare to. Will cover for this with PNA tx. Discussed discharge home versus admission with patient and family. CURB-65 =1 based on age alone. No other red flag symptoms currently. Feel patient can be safe for discharge home with close outpatient follow-up, oral antibiotics. Patient and family are in agreement with this plan. They feel comfortable taking the patient home. Recommended very close follow-up with PCP for further evaluation and to ensure improvement of symptoms. Discussed very strict return precautions. Patient voiced understanding. Discharged in stable condition. Medical Records Attestation: I reviewed the patient's medical records. Lab Data Attestation: I reviewed the patient's lab results. 03/07/25 11:37 03/07/25 11:37 Labs: Lab Results 03/07/25 03/07/25 03/07/25 Range/Units 11:36 11:37 14:29 WBC 5.2 (4.5-10.0) K/mm3 RBC 3.28 L (4.2-5.4) M/mm3 Hgb 10.2 L (12.0-15.0) g/dL Hct 32.0 L (37.0-47.0) % MCV 97.6 (80-100) fl MCH 31.1 (26-34) pg MCHC 31.9 L (32-36) g/dl RDW 12.6 (11.5-14.5) % Plt Count 144 L (150-375) k/mm3 MPV 10.3 (7.4-10.4) fl Immature Gran % (Auto) 0.2 (0-0.5) % Neut % (Auto) 47.8 (45.5-73.1) % Lymph % (Auto) 40.8 (18.3-44.2) % [place] % (Auto) 9.6 H (2.6-8.5) % Eos % (Auto) 1.2 (0-4.4) % Baso % (Auto) 0.4 (0.2-1.2) % Lymph # (Auto) 2.12 (0.9-3.2) K/mm3 Hutchinson # (Auto) 0.5 (0.1-0.6) K/mm3 Eos # (Auto) 0.1 (0-0.3) K/mm3 Baso # (Auto) 0.0 (0.0-0.1) K/mm3 Abs Immat Gran (auto) 0.01 (0.00-0.031) K/mm3 Absolute Neuts (auto) 2.5 (1.3-6.7) K/mm3 Absolute Nucleated RBC 0.000 (0.0-0.012) K/mm3 Nucleated RBC % 0.0 (0.0-0.2) % % Immature Plt Fraction 3.3 (0.9-11.2) % Sodium 137 (137-145) mmol/L Potassium 3.6 (3.4-5.0) mmol/L Chloride 108 H (98-107) mmol/L Carbon Dioxide 23 (22-30) mmol/L Anion Gap 6 (4-12) mmol/L BUN 11 (7-17) mg/dL Creatinine 1.25 H (0.7-1.0) mg/dL Estim Creat Clear Calc 29 ml/min Estimated GFR 40 L (59 - ) Glucose 100 (65-110) mg/dL Calcium 9.2 (8.4-10.2) mg/dL Total Bilirubin 0.6 (0.2-1.3) mg/dL AST 23 (14-36) U/L ALT 11 (6-35) U/L Alkaline Phosphatase 73 (38-126) U/L Total Protein 6.5 (6.3-8.2) g/dL Albumin 3.6 (3.5-5.1) g/dL Urine Color Yellow (Yellow) Urine Appearance Clear (Clear) Urine pH 5.5 (5.0-9.0) Ur Specific [place] 1.005 (1.001-1.035) Urine Protein Negative (Negative) mg/dL Urine Glucose (UA) Negative (Negative) mg/dL Urine Ketones Negative (Negative) mg/dL Ur Blood (Man) 1+ H (Negative) Urine Nitrate Positive H (Negative) Urine Bilirubin Negative (Negative) Urine Urobilinogen 0.2 (<2.0) mg/dL Leukocyte Esterase Rfl 1+ H (Negative) ERIN/UL Urine RBC 0-2 (0-2) /hpf Urine WBC 11-20 H (0-3) /hpf Ur Squamous Epith Cells None seen (Few) /hpf Urine Bacteria 4+ H /hpf Urine Casts 0-2 Influenza A (RT-PCR) Negative (Negative) Influenza B (RT-PCR) Negative (Negative) RSV (RT-PCR) Negative (Negative) SARS-CoV-2 RNA (RT-PCR) Negative (Negative) Imaging Data Attestation: I personally reviewed and interpreted this imaging study as follows: Radiologist's impression: ITS Impressions Chest X-Ray 03/07/25 11:59 IMPRESSION: Minimal opacification in the left lung base which may indicate early pneumonia. Follow-up advised. ECG Data EKG #1: Attestation: I personally reviewed and interpreted this ECG as follows: ECG completion date: 03/07/25 ECG completion time: 11:26 EKG Interpretation: normal rate (58), sinus rhythm and RBBB Discharge Plan Discharge Clinical Impression: Abnormal finding on urinalysis Pneumonia Qualifiers: Pneumonia type: due to unspecified organism Laterality: left Lung location: lower lobe of lung Qualified Code(s): J18.9 - Pneumonia, unspecified organism Patient Disposition: Home Condition: Stable Instructions: Antibiotic Form, Fever in Adults (ED), Bacterial Pneumonia (ED) Additional Instructions: Take antibiotics as prescribed for pneumonia. Continue Tylenol as needed for fevers. Follow-up closely with your primary care doctor for further evaluation and to ensure resolution of symptoms. Return to the ED if you experience worsening or severe symptoms, coughing blood, increased shortness of breath, increased oxygen requirement, chest pain, unable to keep down food or drink, or any other symptoms of concern. Patient Language: Sri Lankan Prescriptions: New cefuroxime axetil 500 mg tablet 500 mg PO BID 7 Days Qty: 14 0RF doxycycline monohydrate 100 mg tablet 100 mg PO BID 7 Days Qty: 14 0RF No Action polyethylene glycol 3350 [Miralax] 17 gram/dose powder 17 g PO DAILY acetaminophen 500 mg capsule 500 mg PO BID losartan 100 mg tablet 100 mg PO DAILY mecobalamin (vitamin B12) 1,000 mcg tablet,chewable 1,000 mcg PO DAILY apixaban 2.5 mg tablet 2.5 mg PO BID Qty: 60 8RF carboxymethylcellulose sodium [Refresh Tears] 0.5 % drops 1 drp EACH EYE BID PRN Hydrophilic wound dressing .Route Rx Instructions: twice daily on buttock ergocalciferol (vitamin D2) 1,250 mcg (50,000 unit) capsule 1,250 mcg PO WEEKLY Rx Instructions: take on thursday nystatin 100,000 unit/gram powder 1 applic topical TID Qty: 60 1RF simvastatin 20 mg tablet 20 mg PO DAILY Qty: 90 1RF pantoprazole 40 mg tablet,delayed release (DR/EC) 40 mg PO DAILY Qty: 90 1RF Follow-up/Referrals: Gee Palacios MD [Primary Care Provider] - Time of Disposition: 14:26
[2025-03-07 12:20] LABS: Influenza A QL RT-PCR Negative (Negative); Influenza B QL RT-PCR Negative (Negative); RSV RNA, RT-PCR Negative (Negative); SARS-CoV-2 RNA PCR Negative (Negative)
--- OUTSIDE RECORDS SUMMARY | 2025-03-07 12:36 | XMS_ITS | Referral Summary ---
Author Organization [facility] Address [address] [place] [address] Care Team Providers Care Stoker Installation Mechanic Name Role Phone Gee Palacios MD Primary Care Provider [phone] Allergies Active Allergy Reactions Criticality Noted Date [...] mg tablet 0 8 Active AFLURIA QUAD 7010-8163, PF, 60 mcg (15 mcg x 4)/0.5 mL syringe ADM 0.5ML IM UTD 0 8 Active nystatin powder Apply topically 2 times daily. 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
--- OUTSIDE RECORDS SUMMARY | 2025-03-07 12:36 | XMS_ITS | Encounter Summary ---
Author Organization [facility] [facility] Address [address] [place] [phone] Phone Care Team Providers Care Lockstitch Topstitcher Name Role Phone Gee Palacios MD Primary Care Provider Reason for Visit * Reason Comments Med Refill Encounter Details Date Type Department Care Team (Late Contact Info) Description 03/24/2021 Refill [place] [employer] [facility] [place], [facility] [address] [place] [address] Donald Leon DO [address] [facility] 1 [place] [address] Social History Tobacco Use Types [...] Department Care Team (Late Contact Info) Description 07/25/2025 2:45 PM FIELD SAMPLING TECHNICIAN Office Visit [place] [employer] [facility] [place], [facility] [address] [facility] [address] [place] [address] Donald Leon DO [address] [facility] 1 [place] [address] documented as of this encounter Visit Diagnoses Not on filedocumented in this encounter Care Teams Lockstitch Topstitcher Relationship Specialty Start Date End Date Gee Palacios MD [address] [place] [address] PCP - General Family Medicine 12/31/21 documented as of this encounter
--- OUTSIDE RECORDS SUMMARY | 2025-03-07 12:36 | XMS_ITS | Clinical Summary ---
Author Organization [facility] Address [address] [facility] [address] [place] [address] Phone Care Team Providers Care Cured Meats Supervisor Name Role Phone CelinaStnoe DPM Unavailable [phone] Jason Gomes DO Primary Care Provider [phone] Allergies Active Allergy Reactions Criticality Noted Date Comments Morphine Nausea 10/03/2015 Sulfa Antibiotics Unknown Medications butalbital-aspi fkw-lgkrqqku-xd deine (ASCOMP-CODEINE ) 02-776-32-30 MG PO CAPS Reported on 02/27/2017 Active [...] Lnp-s, Pf, 3 0 Mcg/0.3 Ml Dose ([employer]) 12/25/2020,12/03/2020 Influenza Vaccine greater than 3 yrs [...] 9:15 AM CDT Height 165.1 cm (5' 5) 03/26/2018 9:15 AM CDT Body Mass Index 36.78 03/26/2018 9:15 AM CDT Plan of Treatment Health Maintenance Due Date Last Done Comments Hepatitis C Virus (HCV) Screening 1936 TdaP Immunization 1936 Zoster Immunization (1 of 2) 1986 Respiratory Syncytial Virus (RSV) Immunization (Adult) (1 - 1-dose 75+ series) 2011 SARS-COV-2 Immunization ( season) 2024 08/23/2021, 12/25/2020, 12/03/2020 Influenza Immunization (Season Ended) 2025 07/09/2020, 08/30/2019, 07/27/2018, Additional history exists Pneumococcal Immunization (50+ years) Completed 06/30/2015, 09/21/2008 Pneumococcal Immunization Combined Discontinued 06/30/2015, 09/21/2008 Hepatitis B Immunization Aged Out No longer eligible based on patient's age to complete this topic Human Papillomavirus (HPV) Immunization Aged Out No longer eligible based on patient's age to complete this topic Meningococcal Immunization (ACWY) Aged Out No longer eligible based on patient's age to complete this topic Rotavirus Immunization Aged Out No lo nger eligible based on patient's age to complete this topic Insurance MEDICARE [facility] Care Teams Cured Meats Supervisor Relationship Specialty Start Date End Date Jason Gomes DO [address] [place] [address] PCP - General Family Medicine 04/21/19 Stone Patrick DPM Podiatry 02/08/16
--- OUTSIDE RECORDS SUMMARY | 2025-03-07 12:36 | XMS_ITS | Clinical Summary ---
Author Organization [facility] Address [address] [place] [address] Care Team Providers Care Floor Supervisor Name Role Phone Gee Palacios MD Primary Care Provider [phone] Allergies Active Allergy Reactions Criticality Noted Date [...] mg tablet 0 8 Active AFLURIA QUAD 3616-6387, PF, 60 mcg (15 mcg x 4)/0.5 mL syringe ADM 0.5ML IM UTD 0 8 Active nystatin powder Apply topically 2 times daily. 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 Gender Identity Not on file Sexual Orientation [...] Depression Screening 1936 Fall Risk Assessment 1936 Osteoporosis Screening-Bone Density Scan 1936 DTaP/Tdap/Td Vaccine (1 - Tdap) 1947 Hepatitis B Screening 1954 Zoster Vaccine (1 of 2) 1986 Well Visit 65+ 2001 Covid-19 Vaccine (3 - 2023-2 5 season) 2024 12/25/2020, 12/03/2020 Influenza Vaccine (Season Ended) 2025 08/30/2019, 07/26/2018, 06/29/2017, Additional history exists Pneumococcal vaccine 65+ Completed 06/30/2015, 09/2008 Insurance MEDICARE MEDICARE [facility] MEDICARE SUPPLEMENT Care Teams Floor Supervisor Relationship Specialty Start Date End Date Gee Palacios MD PCP - General Family Practice 07/18/21
--- OUTSIDE RECORDS SUMMARY | 2025-03-07 12:37 | XMS_ITS | Clinical Summary ---
Author Organization [facility] Address [address] [address] Care Team Providers Care Window Glass Installer Name Role Phone Gee Palacios MD Primary Care Provider [phone] Medications losartan (COZAAR) 100 MG tablet TAKE 1 TABLET BY MOUTH ONCE DAILY AT NIGHT 90 tablet 12/14/2024 Active ergocalciferol 1.25 MG (31843 UT) capsule Take 1 capsule by mouth once a week 12 capsule 02/01/2025 Active Encounters Date Type Department Care Team Description 02/01/2025 [email or web address] [address] [phone] Donald Leon, 01/24/2025 Office Communication [place] [facility], [address] [phone] Donald Leon, 01/19/2025 Documentation Only [facility] [email or web address] [address] [phone] Donald Leon, 01/17/2025 12:00 PM CDT Office Visit [facility] [employer] [facility] [address] [phone] Donald Leon, Stage 3 chronic kidney disease, not otherwise specified (HCC) (Primary Dx); Dyspnea, not otherwise specified; Pulmonary hypertension, not otherwise specified (HCC); History of deep vein thrombosis; Hypertensive chronic kidney disease; Pure hypercholesterolemia, not otherwise specified; Secondary hyperparathyroidism (HCC); Secondary osteoarthritis, not otherwise specified 01/17/2025 Documentation Only [facility], [address] [place] [phone] Donald Leon, 01/17/2025 Documentation Only [facility], [address] [place] [phone] Donald Leon, 01/17/2025 Documentation Only [facility], [address] [phone] Donald Leon, 12/14/2024 Refill [facility], [facility] [address] [phone] Donald Leon, 12/12/2024 Refill [facility], [facility] [address] [phone] Donald Leon, DO from Last 3 Months Social History [...] Sign Reading Time Taken Comments Blood Pressure 126/80 01/17/2025 12:12 PM CDT Pulse 68 01/17/2025 12:12 PM CDT Temperature 36.3 C (97.3 F) 01/17/2025 12:12 PM CDT Respiratory Rate 18 01/17/2025 12:1 2 PM CDT Oxygen Saturation 99% 11/15/2024 3:15 PM MONITORING COORDINATOR Inhaled Oxygen Concentration - - Weight 85.6 kg (188 lb 11.2 oz) 025 12:12 PM CDT Height 162.6 cm (5' 4) 07/08/2022 1:10 PM CDT Body Mass Index 32.39 07/08/2022 1:10 PM CDT Plan of Treatment Upcoming Encounters Date Type Department Care Team (Late st Contact Info) Description 07/25/2025 2:45 PM MONITORING COORDINATOR Office Visit [facility], [facility] [address] [place] [address] Donald Leon DO [address] [place] [phone] Health Maintenance Due Date Last Done Comments Influenza Vaccine (Season Ended) 2025 08/30/2019, 07/27/2018, 06/29/2017, Additional history exists Pneumococcal Vaccine: 50+ Years Completed 06/30/2015, 09/21/2008 Hepatitis B Vaccine Aged Out No longe r eligible based on patient's age to complete this topic Insurance Medicare [facility] Care Teams Window Glass Installer Relationship Specialty Start Date End Date Gee Palacios MD [address] [place] [address] PCP - General Family Medicine 12/31/21
--- OUTSIDE RECORDS SUMMARY | 2025-03-07 12:37 | XMS_ITS | Clinical Summary ---
Author Organization [facility] Address [address] [place] [address] Phone Care Team Providers Care Hull Molder Name Role Phone Juice Schmitz MD Primary Care Provider [phone] Allergies Active Allergy Reactions Criticality Noted Date [...] Comments Blood Pressure 136/70 08/02/2015 11:14 AM ENTERPRISE INTEGRATION ARCHITECT Pulse 71 08/02/2015 11:14 AM ENTERPRISE INTEGRATION ARCHITECT Temperature 36.6 C (97.8 F) 07/14/2015 5:00 AM CDT Respiratory Rate 20 07/14/2015 5:00 AM CDT Oxygen Saturation 93% 07/14/2015 5:00 AM CDT Inhaled Oxygen Concentration - - Weight 91.6 kg (202 lb) 10/01/2017 10:51 AM ENTERPRISE INTEGRATION ARCHITECT Height 167.6 cm (5' 6) 08/02/2015 11:14 AM ENTERPRISE INTEGRATION ARCHITECT Body Mass Index 32.6 08/02/2015 11:14 AM ENTERPRISE INTEGRATION ARCHITECT Plan of Treatment Health Maintenance Due Date Last Done Comments DTAP/TDAP/TD VACCINES (1 - Tdap) 1955 ZOSTER VACCINE (1 of 2) 1986 OSTEOPOROSIS SCREENING 2001 RSV VACCINE (60+ or ) (1 - 1-dose 75+ series) 2011 INFLUENZA VACCINE (#1) 2024 7, 06/12/2016, 05/31/2015, Additional history exists PNEUMOCOCCAL VACCINE 50+ YEARS Completed 06/30/2015 , 09/21/2008 Insurance MEDICARE PART A AND B [facility] SUPP MEDICARE PART A AND B [facility] SUPP Advance Directives For more information, please contact: [phone] Documents on File Type Date Recorded Patient Plant Tour Guide Expl anation Advance Directive Living Will 08/02/2015 [...] 8:09 PM 06/30/2015 5:00 PM Care Teams Hull Molder Relationship Specialty Start Date End Date Juice Schmitz MD [address] [address] PCP - General Internal Medicine 06/30/15
--- OUTSIDE RECORDS SUMMARY | 2025-03-07 12:37 | XMS_ITS | Encounter Summary ---
Author Organization [employer] [facility] Address [address] [place] [phone] Phone Care Team Providers Care Right Of Way Clearer Name Role Phone Gee Palacios MD Primary Care Provider [phone] Reason for Visit * Reason Onset Date Comments Med Refill 11/16/2024 Encounter Details Date Type Department Care Team (Late Contact Info) Description 11/16/2024 Refill [employer], [facility] [address] [place] [phone] Kayley Altamirano CMA [address] [facility] 1 [place] [address] Social History Tobacco Use Types [...] st Contact Info) Description 07/25/2025 2:45 PM MANAGER MED SURG Office Visit [employer], [facility] [address] [facility] [address] [place] [address] Donald Leon DO [address] [facility] [address] [place] [address] documented as of this encounter Visit Diagnoses Not on filedocumented in this encounter Care Teams Right Of Way Clearer Relationship Specialty Start Date End Date Gee Palacios MD [address] [place] [address] PCP - General Family Medicine 12/31/21 documented as of this encounter
--- OUTSIDE RECORDS SUMMARY | 2025-03-07 12:37 | XMS_ITS | Continuity of Care Document ---
Author Organization [facility] [place] [address] [address] [facility] [address] [place] [address] Phone Care Team Providers Care Consumer Educator Name Role Phone Adrian LEOPOLDO, Katina Unavailable [...] Diagnoses Date Provider Providers Copied on Encounter [facility], [address], [place], [place], [id number], [place] tel:[phone] SEC Fawad BARAKAT Professional Complete Exam (chief complaint) Anatomical narrow angle, right eyeAsteroid hyalosis of left eyeSubjective visual disturbanceAn terior basement membrane dystrophy (ABMD) of both eyesRetinal pigment epithelial detachment of left eyePseudophak ia, left eyeCombined forms of age-related cataract, right eye 5 Adrian OD Katina. [address] [place] [address], [address], [place], [place], [address], [place]. tel:[phone] Referring Provider: Isaac Infante OD, [facility] [address] [facility], [place], [address]. tel:[phone] [facility], [address] [place] [address] [address], [place], [place], [id number], [place] tel:[phone] SEC F[place] Professional 2 week s/p PCIOL (chief complaint) Post op visit 0 Eyal Sidhu. [address] [facility], [facility] [address], [place], [place], [address], [place]. tel:[phone] Referring Provider: Isaac Infante OD, [employer] [address] [place], [address]. tel:[phone] [facility], [address] [place] [address] [address], [place], [place], [address], [place] tel:[phone] [facility] YUVAL No Information 0 Eyal Sidhu. [address] [facility], [facility] [place], [place], [address], [place]. tel:[phone] [facility], [address] [place] [address] [address], [place], [place], [address], [place] tel:[phone] SEC [place] Professional 1 day s/p PCIOL (chief complaint) Post op visit 0 Tank Wills. [address] [facility], [address]th Floor, [place], [address], [place]. tel:[phone] Referring Provider: Isaac Infante OD, [employer] [address] [place], [address]. tel:[phone] [facility], [address] [place] [address] [address], [place], [place], [address], [place] [phone] [facility] No Information 0 Eyal Sidhu. [address] [facility], [address], [place], [place], [address], [place]. tel:[phone] Referring Provider: Nahum Tellez, [address] [facility] [address], [place], [address] . tel:[phone] [facility], [address] [place] [address] [address], [place], [place], [address], [place] tel:[phone] SEC [place] Professional No Information 0 Eyal Sidhu. [address] [facility], [facility] [place], [address], [place]. tel:[phone] Referring Provider: Isaac Infante OD, [facility] [address] [facility], [place], [address]. tel:[phone] Office/outpa tient Visit, [facility], [address] [place] [address] [address], [place], [place], [address], [place] tel:[phone] SEC [place] Professional Cataract evaluation (chief complaint) Nexdtve age-related mclr degn, left eye, intermed dry stageCombined forms of age-related cataract, bilateralAste roid hyalosis of left eyeABMD (anterior basement membrane dystrophy)Lat jermaine degeneration of both retinasAnatom ical narrow angle, bilateral Dec-3 9 Eyal Sidhu. [address] [facility], [address] [place], [address], [place]. tel:[phone] Referring Provider: Nahum Tellez, [address] [facility] [address], [place], [address] . tel:[phone] [facility], [address] [place] [address] [address], [place], [place], [address], [place] tel:[phone] SEC [place] Professional No Information 9 Eyal Sidhu. [address] [facility], [address], [place], [place], [address], [place]. tel:[phone] [facility], [address], [place], [place], [address], [place] tel:[phone] SEC Fawad BARAKAT Professional No Information [address] Elina Rob. [address] [facility], [address], [place], [place], [address], [place]. tel:[phone] Family History Family Member Type Diagnosis Age At Onset Problem (finding) Family history of Diabe kavitha mellitus Payers Payer name Insurance type Covered constitution party ID Authoriza tion(s) [place] [id number] [facility] [id number] Social History Type Description Quantity Date Captured [...]
[2025-03-07 12:40] VITALS: BP 147/62; PULSE 54; RESP 15; O2SAT 98
[2025-03-07] MEDS: AZITHROMYCIN 500 MG/NS 250 ML 500 MG/250 ML BAG 250 MG IVPB (13:26)
[2025-03-07 14:30] VITALS: BP 154/67; PULSE 58; RESP 14; O2SAT 98
[2025-03-07 14:39] LABS: Add Urine Microscopic? YES; Appearance Urine Clear (Clear); Bacteria Urine 4+ /hpf; Bilirubin Urine Negative (Negative); Blood Urine 1+ (Negative); Color Urine Yellow (Yellow); Glucose Urine UA Negative (Negative); Ketones Urine Negative (Negative); Leukocyte Esterase Ur 1+ LEU/UL (Negative); Nitrate Urine Positive (Negative); Non Pathogenic Casts 0-2; Protein Urine Negative (Negative); RBC Urine 0-2 /hpf (0-2); Specific Grav Ur 1.005 (1.001-1.035); Squamous Epithelial Cell Urine None Seen /hpf (Few); Urobilinogen Urine 0.2 mg/dL (<2.0); pH Urine 5.5 (5.0-9.0)
[2025-03-07 15:20] VITALS: BP 132/71; PULSE 62; RESP 18; TEMP 36.7; O2SAT 95
== END 2025-03-07 15:40 | disposition home or self-care (01) ==
PROVIDERS: Emergency Medicine; Emergency Provider Physician Assistant; PCP Family Medicine
DX: J18.9 Pneumonia, unspecified organism (principal); R82.998 Other abnormal findings in urine; Z20.822 Contact with and (suspected) exposure to COVID-19; J96.11 Chronic respiratory failure with hypoxia; Z99.81 Dependence on supplemental oxygen; E11.22 Type 2 diabetes mellitus with diabetic chronic kidney disease; I12.9 Hypertensive chronic kidney disease with stage 1 through stage 4 chronic kidney disease, or unspecified chronic kidney disease; N18.30 Chronic kidney disease, stage 3 unspecified; E78.5 Hyperlipidemia, unspecified; Z86.718 Personal history of other venous thrombosis and embolism; Z86.711 Personal history of pulmonary embolism; Z90.49 Acquired absence of other specified parts of digestive tract; Z90.710 Acquired absence of both cervix and uterus; Z95.0 Presence of cardiac pacemaker; Z96.649 Presence of unspecified artificial hip joint; Z79.899 Other long term (current) drug therapy; Z79.01 Long term (current) use of anticoagulants; I45.10 Unspecified right bundle-branch block
CPT/HCPCS: 36415; 71046; 80053; 81001; 85025; 85055; 87077; 87086; 87186; 87637; 93005; 96365; 96367; 99284; J0456; J0696

== ENCOUNTER 2025-09-04 14:40 | Outpatient (CLI) | payer MEDICARE, SELFPAY ==
[2025-09-04 16:02] LABS: Hematocrit 36.3 % (37.0-47.0); Hemoglobin 11.6 g/dL (12.0-15.0); Immature Granulocyte Percent A 1.0 % (0-0.5); Lymphocytes Absolute Auto 3.65 K/mm3 (0.9-3.2); Mean Corpuscular HGB Conc 32.0 g/dl (32-36); Mean Corpuscular Hemoglobin 31.5 pg (26-34); Mean Corpuscular Volume 98.6 fl (80-100); Nucleated Red Blood Cells Absolute Auto 0.000 K/mm3 (0.0-0.012); Nucleated Red Blood Cells Perc 0.0 % (0.0-0.2); Platelet Count Result 194 k/mm3 (150-375); Red Blood Count 3.68 M/mm3 (4.2-5.4); White Blood Count 7.9 K/mm3 (4.5-10.0)
[2025-09-04 16:15] LABS: Hemoglobin A1C 5.3 % (<5.7)
[2025-09-04 16:16] LABS: Alanine Aminotransferase 12 U/L (6-35); Albumin Level 4.2 g/dL (3.5-5.1); Alkaline Phosphatase 68 U/L (38-126); Anion Gap 7 mmol/L (4-12); Aspartate Amino Transferase 23 U/L (14-36); Bilirubin,Total 0.9 mg/dL (0.2-1.3); Blood Urea Nitrogen 18 mg/dL (7-17); Calcium 10.0 mg/dL (8.4-10.2); Carbon Dioxide 26 mmol/L (22-30); Chloride 105 mmol/L (98-107); Estimated Glomerular Filt Rate 36; Glucose 119 mg/dL (65-110); Magnesium 2.0 mg/dL (1.6-2.3); Potassium 3.5 mmol/L (3.4-5.0); Sodium 138 mmol/L (137-145); Total Protein 7.2 g/dL (6.3-8.2)
[2025-09-04 16:26] LABS: Parathyroid Intact 89.4 pg/mL (14.5-75.2)
--- OUTSIDE RECORDS SUMMARY | 2025-09-04 16:43 | XMS_ITS | Clinical Summary ---
Author Organization [facility] Address [address] [place] [address] Care Team Providers Care Senior Qc Technician Name Role Phone Gee Palacios MD Primary Care Provider [phone] Allergies Active Allergy Reactions Criticality Noted Date [...] mg tablet 0 8 Active AFLURIA QUAD [id number], PF, 60 mcg (15 mcg x 4)/0.5 mL syringe ADM 0.5ML IM UTD 0 8 Active nystatin powder Apply topically 2 times daily. 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
--- OUTSIDE RECORDS SUMMARY | 2025-09-04 16:43 | XMS_ITS | Clinical Summary ---
Author Organization [facility] Address [address] [place] [address] Phone Care Team Providers Care Heel Attacher Wood Name Role Phone Juice Schmitz MD Primary Care Provider [phone] Allergies Active Allergy Reactions Criticality Noted Date [...] Comments Blood Pressure 136/70 08/02/2015 11:14 AM CONTACT CENTER SPECIALIST Pulse 71 08/02/2015 11:14 AM CONTACT CENTER SPECIALIST Temperature 36.6 C (97.8 F) 07/14/2015 5:00 AM CDT Respiratory Rate 20 07/14/2015 5:00 AM CDT Oxygen Saturation 93% 07/14/2015 5:00 AM CDT Inhaled Oxygen Concentration - - Weight 91.6 kg (202 lb) 10/01/2017 10:51 AM CONTACT CENTER SPECIALIST Height 167.6 cm (5' 6) 08/02/2015 11:14 AM CONTACT CENTER SPECIALIST Body Mass Index 32.6 08/02/2015 11:14 AM CONTACT CENTER SPECIALIST Plan of Treatment Health Maintenance Due Date Last Done Comments DTAP/TDAP/TD VACCINES (1 - Tdap) 1955 ZOSTER VACCINE (1 of 2) 1986 OSTEOPOROSIS SCREENING 2001 RSV VACCINE (60+ or ) (1 - 1-dose 75+ series) 2011 INFLUENZA VACCINE (#1) 2025 7, 06/12/2016, 05/31/2015, Additional history exists PNEUMOCOCCAL VACCINE 50+ YEARS Completed 06/30/2015 , 09/21/2008 Insurance MEDICARE PART A AND B [facility] SUPP MEDICARE PART A AND B [facility] SUPP Advance Directives For more information, please contact: [phone] Documents on File Type Date Recorded Patient Medical Detailist Expl anation Advance Directive Living Will 08/02/2015 [...] 8:09 PM 06/30/2015 5:00 PM Care Teams Heel Attacher Wood Relationship Specialty Start Date End Date Juice Schmitz MD [address] [address] PCP - General Internal Medicine 06/30/15
--- OUTSIDE RECORDS SUMMARY | 2025-09-04 16:43 | XMS_ITS | Clinical Summary ---
Author Organization [facility] Address [address] [facility] [address] [place] [address] Phone Care Team Providers Care Bowling Ball Molder Name Role Phone CelinaStone DPM Unavailable [phone] Jason Gomes DO Primary Care Provider [phone] Allergies Active Allergy Reactions Criticality Noted Date Comments Morphine Nausea 10/03/2015 Sulfa Antibiotics Unknown Medications butalbital-aspi mye-qfljzkoj-bv deine (ASCOMP-CODEINE ) [id number] MG PO CAPS Reported on 02/27/2017 Active [...] Lnp-s, Pf, 3 0 Mcg/0.3 Ml Dose (FedCyber) 12/25/2020,12/03/2020 Influenza Vaccine greater than 3 yrs [...] 1936 Zoster Immunization (1 of 2) 1986 Medicare Initial AWV [id number] 05/22/2002 Respiratory Syncytial Virus (RSV) Immunization (Adult) (1 - 1-dose 75+ series) 2011 Influenza Immunization (#1) 05/22/202506/21, 08/30/2019, 07/27/2018, Additional history exists SARS-COV-2 Immunization ( season) 2025 08/23/2021, 12/25/2020, 12/03/2020 Pneumococcal Immunization (50+ years) Completed 06/30/2015, 09/21/2008 Pneumococcal Immunization Combined Discontinued 06/30/2015, 09/21/2008 Hepatitis B Immunization Aged Out No longer eligible based on patient's age to complete this topic Human Papillomavirus (HPV) Immunization (No Doses Required) Completed Meningococcal Immunization (ACWY) Aged Out No longer eligible based on patient's age to complete this topic Rotavirus Immunization Aged Out No lo nger eligible based on patient's age to complete this topic Insurance MEDICARE [facility] Care Teams Bowling Ball Molder Relationship Specialty Start Date End Date Jason Gomes DO [address] [place] [address] PCP - General Family Medicine 04/21/19 Stone Patrick DPM Podiatry 02/08/16
[2025-09-04 16:52] LABS: Thyroid Stimulating Hormone 1.650 uIU/mL (0.465-4.680)
[2025-09-04 17:28] LABS: Vitamin B12 > 1000.0 pg/mL (239-931)
== END 2025-09-04 14:41 | disposition home or self-care (01) ==
PROVIDERS: PCP Family Medicine; Visit Provider Family Medicine
DX: E11.22 Type 2 diabetes mellitus with diabetic chronic kidney disease (principal); I13.0 Hypertensive heart and chronic kidney disease with heart failure and stage 1 through stage 4 chronic kidney disease, or unspecified chronic kidney disease; N18.30 Chronic kidney disease, stage 3 unspecified; I50.812 Chronic right heart failure; E55.9 Vitamin D deficiency, unspecified; K21.9 Gastro-esophageal reflux disease without esophagitis; R79.89 Other specified abnormal findings of blood chemistry; Z79.899 Other long term (current) drug therapy
CPT/HCPCS: 36415; 80053; 82306; 82607; 82746; 83036; 83735; 83970; 84443; 85025